=== PATIENT | female | born 1960 | race Two or more races ===

== ENCOUNTER 2020-04-17 14:49 | Outpatient (REF) | payer MEDICAID, SELFPAY | END 2020-04-17 14:50 | disposition home or self-care (01) | LOC: HO.LAB 14:49 | PROVIDERS: Visit Provider Internal Medicine | DX: Z20.828 Contact with and (suspected) exposure to other viral communicable diseases (principal) | CPT/HCPCS: 87635 ==

== ENCOUNTER 2020-09-27 12:35 | Outpatient (REF) | payer MEDICAID, SELFPAY ==
[2020-09-27 14:18] LABS: SARS COV2 PCR INHOUSE POSITIVE (Negative)
== END 2020-09-27 12:36 | disposition home or self-care (01) ==
LOC: HO.LAB 12:35
PROVIDERS: Visit Provider Internal Medicine
DX: Z20.822 Contact with and (suspected) exposure to COVID-19 (principal)
CPT/HCPCS: C9803; U0003

== ENCOUNTER 2020-10-16 12:07 | Outpatient (REF) | payer MEDICAID, SELFPAY | END 2020-10-16 12:08 | disposition home or self-care (01) | LOC: HO.LAB 12:07 | PROVIDERS: Visit Provider Internal Medicine | DX: Z20.822 Contact with and (suspected) exposure to COVID-19 (principal) | CPT/HCPCS: C9803; U0003; U0005 ==

== ENCOUNTER 2020-11-03 10:07 | Outpatient (REF) | payer MEDICAID, SELFPAY ==
[2020-11-03 11:03] LABS: Anion Gap 9 (12-20); Blood Urea Nitrogen 12 mg/dL (9-16); Calcium 9.2 mg/dL (8.4-10.2); Carbon Dioxide 31 mmol/L (22-29); Chloride 109 mmol/L (96-108); Estimated Glomerular Filt Rate > 60; Potassium 3.6 mmol/L (3.3-5.1); Sodium 145 mmol/L (135-145)
[2020-11-03 11:27] LABS: Glucose Urine UA NEG (NEG); Leukocyte Esterase Urine NEG (NEG); Nitrite Urine NEG (NEG); PH 7.5 (5.0-8.0); Urine Blood NEG (NEG); Urine Ketones NEG (NEG); Urine Protein NEG (NEG-TRACE)
[2020-11-03 11:30] LABS: Appearance Urine CLOUDY; Color Urine YELLOW
[2020-11-03 12:00] LABS: Urine Cytology See Pathology rpt
== END 2020-11-03 10:08 | disposition home or self-care (01) ==
LOC: HO.LAB 10:07
PROVIDERS: Visit Provider Internal Medicine Hypertension Specialist
DX: N28.1 Cyst of kidney, acquired (principal)
CPT/HCPCS: 36415; 80051; 81003; 82310; 82565; 84520; 88112; 88305

== ENCOUNTER 2021-05-03 14:16 | Outpatient (REF) | payer MEDICAID, SELFPAY ==
[2021-05-04 11:10] LABS: BV Int Neg Control Negative (Negative); BV Int Pos Control Positive (Positive)
== END 2021-05-03 14:17 | disposition home or self-care (01) ==
LOC: HO.LAB 14:16
PROVIDERS: Visit Provider Advanced Practice Midwife
DX: Z01.419 Encounter for gynecological examination (general) (routine) without abnormal findings (principal); Z11.3 Encounter for screening for infections with a predominantly sexual mode of transmission
CPT/HCPCS: 87480; 87510; 87660

== ENCOUNTER 2021-05-16 09:49 | Outpatient (REF) | payer MEDICAID, SELFPAY ==
--- NOTE | ~2021-05-16 | XR_ITS ---
EXAMINATION: XR FOOT, LEFT CLINICAL INFORMATION: Left foot injury COMPARISON: None TECHNIQUE: AP, lateral, and oblique views of the left foot. FINDINGS: The bones and soft tissues are normal. No fracture. Alignment is anatomic. Joint spaces are maintained. XR/XR foot LT min 3V IMPRESSION: Normal left foot.
== END 2021-05-16 09:50 | disposition home or self-care (01) ==
LOC: HO.XRAY 09:49
PROVIDERS: Absent Provider Nurse Practitioner Family; PCP Nurse Practitioner Family; Visit Provider Nurse Practitioner Primary Care
DX: M79.672 Pain in left foot (principal)
CPT/HCPCS: 73630

== ENCOUNTER 2021-06-01 13:58 | Outpatient (REF) | payer MEDICAID, SELFPAY ==
--- NOTE | ~2021-06-01 | MM_ITS ---
EXAMINATION: MM SCREENING DIGITAL BREAST TOMOSYNTHESIS, BILATERAL CLINICAL INFORMATION: Screening. Asymptomatic. The lifetime risk of breast cancer based on the Tyrer-Cuzick Model is 5%. COMPARISON: Mammography: 03/14/2020, 03/11/2019, 04/20/2018, diagnostic mammography 01/16/2015 TECHNIQUE: Digital breast tomosynthesis is performed in both the craniocaudal and mediolateral oblique views along with computer-aided detection (CAD). Synthesized 2D images are generated from the tomosynthesis. Additional left MLO view is provided. FINDINGS: There are scattered areas of fibroglandular density (ACR BI-RADS breast composition Category b). Parenchymal pattern is similar to prior studies. No developing density or architectural abnormality. There is chronic bilateral nipple retraction again seen. The skin contours are otherwise unremarkable. There are fine calcifications central 12:00 right breast mid depth questionably increased on the 2-D synthesized images versus superimposed pseudo calcifications from digital processing artifact. Patient will be recalled for additional imaging. MM/MM tomosynthesis screening BI IMPRESSION: 1. Right: Question of increased calcifications versus similar calcifications central right breast mid depth. 2. Left: No mammographic evidence of malignancy. ASSESSMENT: BI-RADS 0: Incomplete - Need Additional Imaging Evaluation RECOMMENDATION: 1. Additional views of the right breast (magnification CC, magnification ML). 2. Radiology department staff will contact the patient for additional imaging. This patient's information was entered into a reminder system with a target due date for their next mammogram.
== END 2021-06-01 13:59 | disposition home or self-care (01) ==
LOC: HO.MAMMO 13:58
PROVIDERS: PCP Nurse Practitioner Family; Visit Provider Advanced Practice Midwife
DX: Z12.31 Encounter for screening mammogram for malignant neoplasm of breast (principal)
CPT/HCPCS: 77063; 77067

== ENCOUNTER 2021-06-06 10:48 | Outpatient (REF) | payer MEDICAID, SELFPAY ==
--- NOTE | ~2021-06-06 | MM_ITS ---
EXAMINATION: MM DIAGNOSTIC DIGITAL MAMMOGRAPHY, RIGHT CLINICAL INFORMATION: Recall from screening for questionably increased calcifications central 12:00 right breast. COMPARISON: Mammography: 06/01/2021 and prior exams including magnification views right breast from 01/16/2015. TECHNIQUE: Digital mammography is performed in the following views: Magnification CC and magnification ML. FINDINGS: There are scattered areas of fibroglandular density (ACR BI-RADS breast composition Category b). The additional views show loosely grouped round calcifications in the area of interest. There were calcifications in this area in 2015. They are better visualized on the current exam and a few are slightly coarser. There is no substantial change. Recommend diagnostic right mammogram in 6 months. Results are discussed with the patient at time of visit, using an paster supervisor. MM/MM added views RT IMPRESSION: Probably benign calcifications central upper breast, likely without substantial change from 2015. ASSESSMENT: BI-RADS 3: Probably Benign RECOMMENDATION: Diagnostic right mammography in 6 months. This patient's information was entered into a reminder system with a target due date for their next mammogram.
== END 2021-06-06 10:49 | disposition home or self-care (01) ==
LOC: HO.MAMMO 10:48
PROVIDERS: Visit Provider Advanced Practice Midwife
DX: R92.1 Mammographic calcification found on diagnostic imaging of breast (principal)
CPT/HCPCS: 77065

== ENCOUNTER 2021-11-28 08:50 | Outpatient (REF) | payer MEDICAID, SELFPAY ==
--- NOTE | 2021-11-28 17:31 | MHC.AU.ANR ---
Adult Audiological Evaluation Date of Visit: 11/28/21 Pin Inserter Regulator Used: [place]an- By Phone Reason for Appointment: Audiological evaluation due to concern for decreased hearing and dizziness. Patient reports that she's noticed a decrease in her hearing in both ear over the past three months, and feels her right ear is worse than the left. She also reports 2-3 episodes of dizziness over the past two months. She notes that for the first episode, she woke up and was laying in bed and everything was spinning. She notes this first episode lasted about five minutes. Another episode came on when she was turning her head which bending to get something out of the fridge. She noted this episode was brief and not as severe as the first. She denies any changes to her hearing or tinnitus during the episodes of dizziness. Does patient feel they have a hearing loss?: Yes If Yes, Which Ear?: Both Ears When Was Hearing Difficulty First Noticed?: ~3 months ago Has hearing been tested previously?: No Hearing Handicap Inventory: HHIE SCORE: 4 Based on HHIE score, patient has: No perceived hearing handicap Medical History: Medical History: Dizziness or Unsteadiness Medical History (Other): Per PCP report: Chronic fatigue, fibromyalgia, depression, vitamin B12 deficiency, sciatica, COPD, renal cyst, ileocolitis, hypothyroidism, bilateral cataracts, GERD Allergies: NKA Medication List: triamcinolone acetonide, vitamin D3, levothyroxine sodium, acetaminophen, naproxen, Advair Diskus, albuteral sulfate, Proair HFA, Singulair, Claritin, omeprazole, meclizine HCl Otoscopy: Right Ear: Unremarkable Left Ear: Unremarkable Tympanometry: Tympanometry performed due to: To assess integrity of the middle ear system Right Ear: Normal Middle Ear System (Type A) Left Ear: Normal Middle Ear System (Type A) Hearing Evaluation: Transducer(s) Used: Insert Earphones, Bone Conduction Method: Conventional Audiometry Stimuli Used: Pure Tones Right Ear: Description of Hearing: Normal hearing from 250-1000 Hz, sloping to a mild sensorineural hearing loss at 2000 Hz, and rising to normal hearing from 6385-9134 Hz. Left Ear: Description of Hearing: Normal hearing from 250-1000 Hz, sloping to a mild sensorineural hearing loss at 2000 Hz, then rising to normal hearing at 4000, and sloping to a mild hearing loss at 8000 Hz. Speech Recognition Threshold (SRT): Method Used: Recorded Lists Stimuli Used: [place] Trisyllable Words Right Ear: 35 dBHL Left Ear: 35 dBHL Word Discrimination: Method: Recorded Lists Word Lists Used: Lista Bisil?bica (S[place]ankan) Right Ear: 92% at 65 dBHL Left Ear: 96% at 65 dBHL Interpretation of Results: Mild hearing loss at 2000 Hz in the right ear and 2000 and 8000 Hz in the left ear. This hearing loss is not likely to cause any significant communication difficulties at this time. Recommendations: Audiological re-evaluation in one year. Amplification is not warranted at this time. Advised patient that if dizziness/vertigo continues, she may consider following up with Ear, Nose, and Throat. Diagnosis: Primary Diagnosis: H90.3 Bilateral Sensorineural Hearing Loss Services Performed: Services Performed: Comprehensive Audiological Evaluation (CPT 30916) Tympanometry (CPT 61091) Signature: Provider: Candis Egan, CCC-A
== END 2021-11-28 08:51 | disposition home or self-care (01) ==
LOC: HO.SH 08:50
PROVIDERS: Visit Provider Nurse Practitioner Family
DX: Z01.118 Encounter for examination of ears and hearing with other abnormal findings (principal); H90.3 Sensorineural hearing loss, bilateral
CPT/HCPCS: 92557; 92567

== ENCOUNTER 2021-12-06 12:27 | Outpatient (REF) | payer MEDICAID, SELFPAY ==
--- NOTE | ~2021-12-06 | MM_ITS ---
EXAMINATION: MM DIAGNOSTIC DIGITAL BREAST TOMOSYNTHESIS, RIGHT CLINICAL INFORMATION: Short interval six-month follow-up probable benign calcifications mid central right breast just superior to posterior nipple line. The lifetime risk of breast cancer based on the Tyrer-Cuzick Model is 5%. COMPARISON: Mammography: 06/06/2021, 06/01/2021 (BI-RADS 0), 03/14/2020, 06/10/2019, magnification views right breast 01/16/2015. TECHNIQUE: Digital breast tomosynthesis is performed in both the craniocaudal and mediolateral oblique views along with computer-aided detection (CAD). Synthesized 2D images are generated from the tomosynthesis. Additional magnification right CC and magnification right ML views are obtained. FINDINGS: There are scattered areas of fibroglandular density (ACR BI-RADS breast composition Category b). There is inhomogeneous parenchymal pattern with scattered stable fibroglandular asymmetries similar to prior studies. No developing density or interval mass or architectural abnormality. Calcifications for follow-up mid central 12:00 position are stable from the most recent prior diagnostic exam. They are better visualized on the current mammography than on more remote magnification views. The calcifications are uniform round. They will be reassessed again at time of annual bilateral diagnostic mammography, due in 6 months. Results are provided to the patient at time of visit by the technologist. MM/MM tomosynthesis diagnostic RT IMPRESSION: Probable benign calcifications central 12:00 right breast similar to prior diagnostic exam. ASSESSMENT: BI-RADS 3: Probably Benign RECOMMENDATION: Bilateral diagnostic mammography to include magnification views right breast, due in 6 months. This patient's information was entered into a reminder system with a target due date for their next mammogram.
== END 2021-12-06 12:28 | disposition home or self-care (01) ==
LOC: HO.MAMMO 12:27
PROVIDERS: Visit Provider Nurse Practitioner Family
DX: R92.1 Mammographic calcification found on diagnostic imaging of breast (principal)
CPT/HCPCS: 77061; 77065

== ENCOUNTER 2022-06-11 14:06 | Outpatient (REF) | payer MEDICAID, SELFPAY ==
--- NOTE | ~2022-06-11 | MM_ITS ---
EXAMINATION: MM DIAGNOSTIC DIGITAL BREAST TOMOSYNTHESIS, BILATERAL CLINICAL INFORMATION: Due for yearly. Also follow-up probable benign calcifications central mid right breast just superior to posterior nipple line. TC score 5%. COMPARISON: Mammography: 12/06/2021, 06/06/2021, 06/01/2021 (BI-RADS 0), 03/14/2020, 03/11/2019, 04/20/2018, 04/08/2017 TECHNIQUE: Digital breast tomosynthesis is performed in both the craniocaudal and mediolateral oblique views along with computer-aided detection (CAD). Synthesized 2D images are generated from the tomosynthesis. Additional magnification right CC and magnification right ML views are obtained. FINDINGS: There are scattered areas of fibroglandular density (ACR BI-RADS breast composition Category b). Parenchymal pattern is similar to prior exams and there is no developing density or interval architectural abnormality. There are some benign grouped calcifications central left breast on MLO view corresponding to dermal calcifications on the CC projection. The bilateral axilla are unremarkable. There is chronic bilateral nipple retraction similar to prior studies. The right breast calcifications for follow-up are similar to prior diagnostic exams. There are punctate similar appearing calcifications more remote mammography. No significant changes. Right breast calcifications will be reassessed again in 12 months at time of annual bilateral mammography to conclude long-term surveillance. Results are provided to the patient at time of visit by the technologist. MM/MM tomosynthesis diagnostic BI IMPRESSION: -Probable benign calcifications for follow-up right breast, stable. -No mammographic evidence of malignancy. ASSESSMENT: BI-RADS 3: Probably Benign RECOMMENDATION: Diagnostic mammography at time of next annual exam, due in 12 months. This patient's information was entered into a reminder system with a target due date for their next mammogram.
== END 2022-06-11 14:07 | disposition home or self-care (01) ==
LOC: HO.MAMMO 14:06
PROVIDERS: PCP Nurse Practitioner Family; Visit Provider Registered Nurse
DX: R92.1 Mammographic calcification found on diagnostic imaging of breast (principal)
CPT/HCPCS: 77062; 77066

== ENCOUNTER 2022-07-10 13:05 | Outpatient (REF) | payer MEDICAID, SELFPAY ==
[2022-07-11 13:49] LABS: BV Int Neg Control Negative (Negative); BV Int Pos Control Positive (Positive)
== END 2022-07-10 13:06 | disposition home or self-care (01) ==
LOC: HO.LAB 13:05
PROVIDERS: PCP Registered Nurse; Visit Provider Advanced Practice Midwife
DX: Z01.419 Encounter for gynecological examination (general) (routine) without abnormal findings (principal); L29.2 Pruritus vulvae
CPT/HCPCS: 87480; 87510; 87660

== ENCOUNTER 2022-09-19 08:09 | Outpatient (REF) | payer MEDICAID, SELFPAY ==
--- NOTE | ~2022-09-19 | US_ITS ---
EXAMINATION: US ABDOMEN COMPLETE CLINICAL INFORMATION: Right upper quadrant pain, Crohn's disease. COMPARISON: CT chest and abdomen with contrast 11/30/2020. Ultrasound abdomen complete 02/02/2018. TECHNIQUE: Real-time imaging of the abdominal viscera. FINDINGS: PANCREAS: The pancreas appears unremarkable, without masses or ductal dilatation, with the exception of the tail which is obscured by bowel gas. ABDOMINAL AORTA: The proximal, mid, and distal segments are normal in caliber. INFERIOR VENA CAVA: Visualized portions are normal. LIVER: The liver is normal in size. The liver contour is normal. There is diffuse increased liver parenchymal echogenicity, consistent with hepatic steatosis. No focal hepatic lesion. There is no intrahepatic biliary duct dilatation seen. GALLBLADDER: Surgically absent. COMMON BILE DUCT: Normal in caliber measuring 0.8 cm in diameter. RIGHT KIDNEY: There is mild cortical thinning. No hydronephrosis or renal calculi. The kidney measures 11.6 cm in maximum dimension. Small 1 cm benign simple cyst is present. No additional imaging or followup is needed. LEFT KIDNEY: There is mild cortical thinning. No hydronephrosis or renal calculi. The kidney measures 12.8 cm in maximum dimension. A lower pole benign Bosniak class II renal cyst is seen with a single thin septation measuring 4.9 x 4.8 x 6.0 cm. No additional imaging or followup is needed. SPLEEN: Normal. The spleen measures 9.4 cm in maximum dimension. FREE FLUID: None. US/US abdomen complete IMPRESSION: 1. Hepatic steatosis. 2. Mild renal cortical thinning.
== END 2022-09-19 08:10 | disposition home or self-care (01) ==
LOC: HO.US 08:09
PROVIDERS: PCP Registered Nurse; Visit Provider Registered Nurse
DX: R10.11 Right upper quadrant pain (principal)
CPT/HCPCS: 76700

== ENCOUNTER 2023-02-28 15:00 | Outpatient (RCR) | payer MEDICAID, SELFPAY | END 2023-03-03 10:27 | disposition home or self-care (01) | LOC: HO.PT 15:00 | PROVIDERS: PCP Registered Nurse; Visit Provider Registered Nurse | DX: M54.42 Lumbago with sciatica, left side (principal); M54.41 Lumbago with sciatica, right side; G89.29 Other chronic pain | CPT/HCPCS: 97110; 97162 ==

== ENCOUNTER 2023-06-13 13:44 | Outpatient (REF) | payer MEDICAID, SELFPAY ==
--- NOTE | ~2023-06-13 | MM_ITS ---
EXAMINATION: MM DIAGNOSTIC DIGITAL BREAST TOMOSYNTHESIS, BILATERAL CLINICAL INFORMATION: Follow-up right breast calcifications, two-year follow-up date. Due for yearly. COMPARISON: Mammography: 06/11/2022, 12/06/2021, 06/06/2021, 06/01/2021. TECHNIQUE: Digital breast tomosynthesis is performed in both the craniocaudal and mediolateral oblique views along with computer-aided detection (CAD). Synthesized 2D images are generated from the tomosynthesis. In addition to standard views, spot magnification right CC and ML views were also obtained. FINDINGS: There are scattered areas of fibroglandular density (ACR BI-RADS breast composition Category b). Punctate round loosely grouped calcifications in the 12:00 axis of the anterior right breast are stable from prior exams dating back to 06/01/2021, establishing a two-year stability and thus are benign. No further follow-up recommended. There are otherwise no suspicious masses, suspicious grouped calcifications, or areas of architectural distortion in either breast. The parenchymal pattern is stable from prior exams. MM/MM tomosynthesis diagnostic BI IMPRESSION: There are no findings suspicious for malignancy in either breast. Calcifications in the 12:00 axis of the anterior right breast are stable over 2 years, and benign. No further follow-up required. ASSESSMENT: BI-RADS BI-RADS 2 - Benign Findings RECOMMENDATION: 1 year F/U Results were provided to the patient at time of visit by the technologist. This patient's information was entered into a reminder system with a target due date for their next mammogram.
== END 2023-06-13 13:45 | disposition home or self-care (01) ==
LOC: HO.MAMMO 13:44
PROVIDERS: PCP Registered Nurse; Visit Provider Registered Nurse
DX: R92.1 Mammographic calcification found on diagnostic imaging of breast (principal)
CPT/HCPCS: 77062; 77066

== ENCOUNTER → 2023-06-13 14:00 | Outpatient (BNV) | payer MEDICARE, MEDICAID, SELFPAY | PROVIDERS: PCP Registered Nurse; Visit Provider Radiology Diagnostic Radiology | DX: R92.1 Mammographic calcification found on diagnostic imaging of breast (principal) | CPT/HCPCS: 77062; 77066; G0279 ==

== ENCOUNTER 2023-07-16 14:36 | Outpatient (REF) | payer MEDICARE, MEDICAID, SELFPAY ==
[2023-07-17 13:43] LABS: BV Int Neg Control Negative (Negative); BV Int Pos Control Positive (Positive)
[2023-07-19 06:43] LABS: HPV mRNA E6/E7 rflx Not Detected (Not Detected)
== END 2023-07-16 14:37 | disposition home or self-care (01) ==
LOC: HO.LNP 14:36
PROVIDERS: PCP Registered Nurse; Visit Provider Advanced Practice Midwife
DX: Z01.419 Encounter for gynecological examination (general) (routine) without abnormal findings (principal); N64.4 Mastodynia; L29.2 Pruritus vulvae; T14.8XXA Other injury of unspecified body region, initial encounter; X58.XXXA Exposure to other specified factors, initial encounter; Y93.9 Activity, unspecified; Y92.9 Unspecified place or not applicable; Y99.9 Unspecified external cause status
CPT/HCPCS: 87480; 87510; 87624; 87660; 88142

== ENCOUNTER 2023-07-16 14:36 | Outpatient (AMB) | payer MEDICARE, MEDICAID, SELFPAY ==
--- NOTE | 2023-07-16 14:38 | A.OFFVIS_ITS ---
Intake Vital Signs 07/16/23 14:40 Height 4 ft 9 in Weight 150 lb BMI 32.5 BP 136/70 Intake Visit Reasons: Annual Intake Note: c/o of vaginal itching Assistant Professor Surgical Technology Required: Yes Assistant Professor Surgical Technology Language: Legal Services Manager Name: Fransisca TATE Information Interpreted: non-clinical & clinical Pyrotechnician: Pyrotechnician Present (Fransisca Sheets RMA) Accompanied by: Self / Same As Patient Allergies tramadol [TRAMADOL] Allergy (Unknown, Verified 07/16/23 14:49) NAUSEA & VOMITING, nausea and vomiting codeine [CODEINE] Adverse Reaction (Severe, Verified 07/16/23 14:49) NAUSEA & VOMITING Codeine Sulfate Allergy (Unknown, Uncoded 07/16/23 14:49) stomach upset Post menopausal: Yes HPI HPI Comments History of Present Illness Details She is a 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 She is doing well with concerns: left breast pain x 2wks after her mammogram during the procedure. Also reports external itching, occasional odor. Attempting to eat a healthy diet with calcium products, no regular exercise. Currently not sexually active. STI testing offered; she declines. Last pap smear; 2018. Last mammogram; 2022. Colonoscopy is not UTD. Denies any family history of breast, ovarian or colon cancer. PFSH Medical History Asthma Depression Anxiety Fibromyalgia Hypothyroidism Surgical History Hx of cholecystectomy Hx of tubal ligation Family History Mother Asthma Brother HTN (hypertension) Son HTN (hypertension) Social History Household Members: Spouse Housing: Apartment Alcohol intake: never Patient Tobacco Use Status: Never used Tobacco Current occupational status: unemployed Sexual orientation: Straight/Heterosexual Gender identity: Female Female Reproductive History Menstrual control method: permanent sterilization Permanent Sterilization: BTL Menopause type: natural Total pregnancies: 8 Full term: 6 Number of Living Children: 6 (1 stillbirth) Ab spontaneous: 1 Date of last pap smear: 10/08/18 (neg pap and hpv) Date of Mammogram: 06/13/23 (Birad 2) Review of Systems Const All systems reviewed & are unremarkable except as noted in HPI and below Reports as per HPI Eyes Reports no additional complaints ENT Reports no additional complaints Card Reports no additional complaints Resp Reports no additional complaints GI Reports as per HPI and Reports no additional complaints Reports as per HPI Musc Reports no additional complaints Skin/Breast Reports as per HPI Neuro Reports no additional complaints Psych Reports no additional complaints Endo Reports no additional complaints Yaniv/Lymph Reports no additional complaints Aller/Immun Reports no additional complaints Physical Exam Vital Signs: Last Vital Signs BP 136/70 07/16/23 14:40 BMI result Body Mass Index 32.5 Const General: cooperative, healthy appearing, no acute distress, well developed and alert Orientation/consciousness: patient oriented x3 HEENT Head: Yes normal to inspection Eyes General: appearance normal, both eyes and all related structures Neck Neck: Yes normal visual inspection Thyroid: Thyroid normal Chest Other: Bilateral inverted nipple no nipple discharge Chest palpation & inspection: normal inspection of the chest and other (no puckering, dimpling, peau de orange, retraction, discharge, masses) Breast/axilla inspection: normal inspection of the breasts Breast/axilla palpation: normal palpation of the breasts Resp Effort & Inspection: normal respiratory effort GI Inspection: Yes normal to inspection Palpation (GI): Soft to palpation Rectal Exam - Female: deferred Other: Upper left labia small excoriated scabbed lesion General: Yes bladder normal to palpation External Female Exam: normal external appearance and normal appearance of the urethra Speculum Exam - Vagina: normal appearance of the vagina, normal palpation, normal vaginal discharge and vagina atrophic Speculum Exam - Cervix: normal appearance of the cervix, normal palpation and Other cervical findings present (Blood with Pap) Bimanual exam- vagina & uterus: normal bimanual exam, normal palpation, uterine size normal, bladder normal to palpation, normal palpation and non-tender Bimanual Exam- Adnexa, other: no masses Skin General skin exam: no rashes or lesions noted Rashes: no rashes Neuro General: patient oriented x3 Cognition (Neuro): normal cognition Extrem General: Yes normal to inspection Psych Attitude: cooperative Thought process: Normal thought process present Assessment & Plan Assessment & Plan (1) Encounter for well woman exam with routine gynecological exam: Code(s): Z01.419 - Encounter for gynecological examination (general) (routine) without abnormal findings (2) Vulvar itching: Code(s): L29.2 - Pruritus vulvae (3) Skin excoriation: Code(s): T14.8XXA - Other injury of unspecified body region, initial encounter (4) Breast pain, left: Code(s): N64.4 - Mastodynia Plan Discussed: Current recommendations for pap smears per ASCCP guidelines. Breast awareness, periodic self breast exams and yearly mammogram. Maintain a healthy lifestyle, well balanced diet including Calcium 1,200 mg and Vitamin D 600 IU daily, and routine exercise. Plan left breast ultrasound follow-up pending results. Rx for vulvar itching, medication use reviewed. Avoid scratching the area, if irritated 10 use a cool compress to help soothe the itch. Follow-up in 2 weeks to recheck if unresolved will do a skin biopsy at that visit. Contact the office with any postmenopausal bleeding. All of her questions and concerns were addressed to the best of my ability and shared decision making. She is agreeable to the plan of care. RTO in 1 year for annual marketing strategy lead exam. This note is constructed using voice recognition software. While every effort has been made to ensure accuracy, printed circuit board assembler errors may have been included. Orders: Orders US breast LT complete Today N64.4 - Mastodynia Medications: New betamethasone dipropionate 0.05% use BID for one week, then daily at bedtime x one, then every other day. 1 appl topical BID 15 grams 0RF Coding Level of Care Code Est Pt Prev Care >65y(97678) Diagnoses Encounter for well woman exam with routine gynecological exam Z01.419 Vulvar itching L29.2 Skin excoriation T14.8XXA Breast pain, left N64.4
[2023-07-16 14:40] VITALS: BP 136/70; BMI 32.5
== END 2023-07-16 15:27 | disposition home or self-care (01) ==
LOC: HO.HWS 14:36
PROVIDERS: PCP Registered Nurse; Visit Provider Advanced Practice Midwife
DX: Z01.419 Encounter for gynecological examination (general) (routine) without abnormal findings (principal); L29.2 Pruritus vulvae; T14.8XXA Other injury of unspecified body region, initial encounter; N64.4 Mastodynia
CPT/HCPCS: G0101

== ENCOUNTER → 2023-07-24 13:00 | Outpatient (BNV) | payer MEDICARE, MEDICAID, SELFPAY | PROVIDERS: PCP Registered Nurse; Visit Provider Radiology Diagnostic Radiology | DX: N64.4 Mastodynia (principal) | CPT/HCPCS: 76642 ==

== ENCOUNTER 2023-07-24 13:27 | Outpatient (REF) | payer MEDICARE, MEDICAID, SELFPAY ==
--- NOTE | ~2023-07-24 | US_ITS ---
EXAMINATION: US DIAGNOSTIC ULTRASOUND BREAST, BILATERAL CLINICAL INFORMATION: Bilateral retroareolar pain. Known bilateral long-term nipple inversion. Negative bilateral mammography 06/13/2023. COMPARISON: Bilateral breast ultrasound 03/14/2020. Otherwise, no contributing prior ultrasounds. TECHNIQUE: Ultrasound of the breast is performed with real-time bailey scale imaging and color Doppler. FINDINGS: Bilateral retroareolar regions demonstrate there are is no focal suspicious finding. There is no solid mass, architectural abnormality, or edema in the soft tissue planes. There is bilateral mild duct ectasia without evidence of filling defects present. Known bilateral mild nipple retraction is again seen. This is long-standing. Results are discussed with the patient at time of visit. US/US breast BI limited mamm only IMPRESSION: No findings suspicious for malignancy in either breast retroareolar region. No sonographic correlate to the regions of breast retroareolar pain. Again noted is mild bilateral duct ectasia in the retroareolar regions without filling defects. Chronic mild nipple retraction is also noted, unchanged. ASSESSMENT: BI-RADS BI-RADS 2 RECOMMENDATION: 1. Patient should be managed based on the clinical impression. 2. Otherwise, the patient should return to routine annual screening mammography.
== END 2023-07-24 13:28 | disposition home or self-care (01) ==
LOC: HO.MAMMO 13:27
PROVIDERS: PCP Registered Nurse; Visit Provider Advanced Practice Midwife
DX: N64.4 Mastodynia (principal)
CPT/HCPCS: 76642

== ENCOUNTER 2023-08-06 13:54 | Outpatient (AMB) | payer MEDICAID, SELFPAY ==
--- NOTE | 2023-08-06 13:57 | A.OFFVIS_ITS ---
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 Patient reports that her finger used to lock. She states that it was locking about a month ago, yet she is feeling better today. Patient just wants to make sure everything is alright. 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 The patient was referred to the office after being diagnosed with right middle finger trigger finger. While in the office today the patient states her right middle finger was locking about a month ago. She states she has been doing better today. She would like to be evaluated to make sure there is nothing significantly wrong with the digit. Patient has a history of left middle finger trigger finger release in [place] in 2019. [facility] Medical History Asthma Depression Anxiety Fibromyalgia Hypothyroidism Surgical History Hx of cholecystectomy Hx of tubal ligation Family History Mother Asthma Brother HTN (hypertension) Son HTN (hypertension) Social History Household Members: Spouse Housing: Apartment Alcohol intake: never Patient Tobacco Use Status: Never used Tobacco Current occupational status: unemployed Sexual orientation: Straight/Heterosexual Gender identity: Female Review of Systems Const All systems reviewed & are unremarkable except as noted in HPI and below Physical Exam Const General: cooperative, healthy appearing and no acute distress Resp Effort & Inspection: normal respiratory effort and able to speak in complete sentences Cardio Rate: regular rate Peripheral pulses: Peripheral pulses 2+ throughout GI Palpation (GI): Soft to palpation Skin Lesions: no lesions Rashes: no rashes Extrem Other: Right hand: Normal to inspection. No ecchymosis, erythema, or edema. Able to perform full finger flexion, extension, abduction, adduction, finger cross, okay sign, and thumbs up without deficit. Able to make a closed fist. Sensation intact. Capillary refill is brisk. Radial pulse intact. Patient complains of right middle trigger finger, however, there is no active locking or catching while in the office today. Assessment & Plan Assessment & Plan (1) Trigger finger, right middle finger: Code(s): M65.331 - Trigger finger, right middle finger Plan Ms. Wilks is a 63-year-old right hand dominant female, who is [place] speaking, presents in the office today for an evaluation of right hand pain. The patient was referred to the office after being diagnosed with right middle finger trigger finger. While in the office today the patient states her right middle finger was locking about a month ago. She states she has been doing better today. She would like to be evaluated to make sure there is nothing significantly wrong with the digit. Patient has a history of left middle finger trigger finger release in [place] in 2019. The patient will follow up as symptoms dictate if her symptoms return. At this time there is no catching or locking and her symptoms have resolved. She is not experiencing any pain at this time. Follow up will be PRN, or sooner if needed. Patient Instructions: Scribed by Nelly Troy emergency medical technician, for Martha Dumas PA-C on 08/06/2023 at 2:15 pm, EST. Coding Level of Care Code New Pt Level 3 (68955) Diagnoses Trigger finger, right middle finger M65.331
== END 2023-08-06 14:19 | disposition home or self-care (01) ==
PROVIDERS: PCP Registered Nurse; Visit Provider Physician Assistant
DX: M65.331 Trigger finger, right middle finger (principal)
CPT/HCPCS: 99203

== ENCOUNTER → 2023-08-06 13:54 | Outpatient (BNVA) | payer MEDICARE, MEDICAID, SELFPAY | PROVIDERS: PCP Registered Nurse; Visit Provider Physician Assistant | DX: M65.331 Trigger finger, right middle finger (principal) | CPT/HCPCS: 99212 ==

== ENCOUNTER → 2023-08-22 11:35 | Outpatient (BNVA) | payer MEDICAID, SELFPAY | PROVIDERS: PCP Registered Nurse; Visit Provider Advanced Practice Midwife ==

== ENCOUNTER 2023-10-03 11:26 | Outpatient (AMB) | payer OTHER, SELFPAY ==
--- NOTE | 2023-10-03 11:28 | MHC.OFFVIS ---
Intake Vital Signs 10/03/23 11:29 Height 4 ft 9 in Weight 149 lb 14.629 oz BMI 32.4 BP 114/62 Intake Visit Reasons: Breast ultra sound follow up Drug Safety Data Management Specialist Required: Yes Drug Safety Data Management Specialist Language: Media Monitor Name: Fransisca TATE Information Interpreted: non-clinical & clinical House Cleaner Supervisor: House Cleaner Supervisor Present Accompanied by: Self / Same As Patient Allergies tramadol [TRAMADOL] Allergy (Unknown, Verified 10/03/23 11:34) NAUSEA & VOMITING, nausea and vomiting codeine [CODEINE] Adverse Reaction (Severe, Verified 10/03/23 11:34) NAUSEA & VOMITING Codeine Sulfate Allergy (Unknown, Uncoded 10/03/23 11:34) stomach upset Is last menstrual period known: Yes Post menopausal: Yes HPI HPI Comments History of Present Illness Details Patient is here today for a follow up of breast ultrasounds due to bilateral breast discomfort that is intermittent and not progress of. She reports wearing a supportive bra, there is no history of breast trauma. No abnormal nipple discharge or nipple bleeding. PFSH Medical History Asthma Depression Anxiety Fibromyalgia Hypothyroidism Surgical History Hx of cholecystectomy Hx of tubal ligation Family History Mother Asthma Brother HTN (hypertension) Son HTN (hypertension) Social History Household Members: Spouse Housing: Apartment Alcohol intake: never Patient Tobacco Use Status: Never used Tobacco Current occupational status: unemployed Sexual orientation: Straight/Heterosexual Gender identity: Female Review of Systems Const All systems reviewed & are unremarkable except as noted in HPI and below Endo Reports no additional complaints Physical Exam Vital Signs: Last Vital Signs BP 114/62 10/03/23 11:29 BMI result Body Mass Index 32.4 Const General: cooperative, healthy appearing and no acute distress Chest Other: Patient defers breast exam today. Psych Appearance: well kempt Attitude: cooperative Thought process: Normal thought process present Assessment & Plan Assessment & Plan (1) Encounter to discuss test results: Code(s): Z71.2 - Person consulting for explanation of examination or test findings (2) Mastalgia: Code(s): N64.4 - Mastodynia Plan Discussed: Breast ultrasound findings report mild bilateral breast ectasia. Internet web pictures utilized to review anatomical structure of the breast and description of ductal changes. Encouraged her to continue wearing a supportive brassiere, use of mild [id number] analgesics if needed. Advised to report any abnormal nipple discharge or bleeding, or any breast lump or increase in pain. Has annual exam June 2024. All of her questions and concerns were addressed to the best of my ability. This note is constructed using voice recognition software. While every effort has been made to ensure accuracy, silk screen operator errors may have been included. Coding Level of Care Code Est Pt Level 3 (82506) Diagnoses Encounter to discuss test results Z71.2 Mastalgia N64.4
[2023-10-03 11:29] VITALS: BP 114/62; BMI 32.4
== END 2023-10-03 11:45 | disposition home or self-care (01) ==
PROVIDERS: PCP Internal Medicine; Visit Provider Advanced Practice Midwife
DX: Z71.2 Person consulting for explanation of examination or test findings (principal); N64.4 Mastodynia
CPT/HCPCS: 99213

== ENCOUNTER → 2023-10-03 11:26 | Outpatient (BNVA) | payer OTHER, SELFPAY | PROVIDERS: PCP Internal Medicine; Visit Provider Advanced Practice Midwife | DX: Z71.2 Person consulting for explanation of examination or test findings (principal); N64.4 Mastodynia | CPT/HCPCS: 99212 ==

== ENCOUNTER 2023-10-21 15:12 | Emergency (ER) | payer OTHER, SELFPAY ==
--- NOTE | ~2023-10-21 | XR_ITS ---
EXAMINATION: XR CHEST CLINICAL INFORMATION: Cough. COMPARISON: Chest radiograph dated 2018. TECHNIQUE: Frontal view of the chest was obtained. FINDINGS: Heart size is normal. The lungs are clear. There is no pleural effusion or pneumothorax. No acute osseous abnormality. XR/XR chest 1V IMPRESSION: No acute cardiopulmonary disease.
[2023-10-21 15:54] VITALS: BP 120/58; PULSE 90; RESP 14; TEMP 36.7; O2SAT 94; BMI 32.7
--- NOTE | 2023-10-21 15:56 | ED_ITS ---
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 Patient also reports bilateral chest wall discomfort and is currently using Robitussin for cough control. Related Data Home Medications ?Medication ?Instructions ?Recorded ?Confirmed albuterol sulfate 90 mcg/actuation 2 puff inhalation Q6H PRN 05/03/21 aerosol inhaler levothyroxine 50 mcg capsule 50 mcg PO DAILY 05/03/21 loratadine 10 mg tablet 10 mg PO DAILY 05/03/21 montelukast 10 mg tablet 10 mg PO DAILY 05/03/21 (Singulair) omeprazole 20 mg capsule,delayed 20 mg PO DAILY 05/03/21 release Previous Rx's ?Medication ?Instructions ?Recorded betamethasone dipropionate 0.05 % 1 appl topical BID #15 grams 07/16/23 topical ointment benzonatate 200 mg capsule 200 mg PO TID PRN cough #14 caps 10/21/23 Allergies Allergy/AdvReac Type Severity Reaction Status Date / Time tramadol [TRAMADOL] Allergy Unknown NAUSEA & Verified 10/21/23 16:00 VOMITING, nausea and vomiting codeine [CODEINE] AdvReac Severe NAUSEA & Verified 10/21/23 16:00 VOMITING Codeine Sulfate Allergy Unknown stomach Uncoded 10/03/23 11:34 upset Review of Systems Review of Systems: Pertinent positives and negatives as stated in HPI PMFSH Past Medical History Source: nursing notes reviewed Medical History Asthma Depression Anxiety Fibromyalgia Hypothyroidism Surgical History Hx of cholecystectomy Hx of tubal ligation Family History Family History Mother Asthma Brother HTN (hypertension) Son HTN (hypertension) Social History Social History Household Members: Spouse Housing: Apartment Alcohol intake: never Patient Tobacco Use Status: Never used Tobacco Smoked in Last 30 Days: No Use of substances other than those prescribed or required for medical reasons: No Advance Directives: No Advance Directives Information Provided: No Do you have a plan to hurt others: No Plan Current occupational status: unemployed Sexual orientation: Straight/Heterosexual Gender identity: Female Physical Exam Vital Signs: Vital Signs: Last Vital Signs Temp 98.1 F 10/21/23 20:52 Pulse 72 10/21/23 20:52 Resp 14 10/21/23 20:52 BP 128/60 10/21/23 20:52 Pulse Ox 96 10/21/23 20:52 O2 Del Method Room Air 10/21/23 20:52 BMI result Body Mass Index 32.7 VITAL SIGNS: Reviewed. GENERAL: Well developed, well nourished, in no acute distress. HEAD: Normocephalic/atraumatic EYES: PERRLA, EOMI EARS: Ext canals without abnormality NOSE: Nares patent bilateral OROPHARYNX: no oral lesions noted, posterior pharynx clear NECK: Supple, no adenopathy LUNGS: Good inspiratory effort, coarse breath sounds, no tachypnea or increased work of breathing SpO2<96> CARDIOVASCULAR: Regular rate and rhythm without noted murmurs, no JVD or lower extremity edema. ABDOMEN: Soft, non-tender, non-distended with bowel sounds. MUSCULOSKELETAL: No tenderness, deformities, or effusions noted on gross inspection. EXTREMITIES: No cyanosis, clubbing or edema. SKIN: Inspection of the skin reveals no rashes NEUROLOGIC: Alert and oriented x 4. Strength and sensation to light touch were grossly intact x 4. Course Course Course Narrative: This is a rapid medical exam completed by Parvez WASSERMANN: Additional HPI, ROS, PE not included below will be deferred to primary provider. Reports cough for the past several weeks, has been treated for bronchitis with two courses of antibiotics with no relief of symptoms. [place] warm the other day but did not take her temperature. Hx of asthma with inhalers. Using them with no relief of symptoms Plan: CXR, nasal swab Medications Administered Discontinued Medications Generic Name Dose Route Start Last Admin Trade Name Freq PRN Reason Stop Dose Admin Benzonatate 200 mg 10/21/23 20:36 10/21/23 20:48 Benzonatate 100 Mg Capsule PO 10/21/23 20:37 200 mg ONCE ONE Administration Medical Decision Making Medical Decision Making [facility] Narrative: 63-year-old female with history and clinical presentation, DDX: Bronchitis, asthma, viral illness, chronic cough Viral testing is negative for COVID-19/influenza A and chest x-ray negative for infiltrate or venous congestion otherwise my interpretation is in agreement with radiology's impression. Provided patient with Tessalon and a prescription for Tessalon Perles to help with cough control which I think will also help to decrease airway irritation, there is no evidence of acute asthma exacerbation, there is no viral illness, patient is oxygenating well on room air and I discussed all results with the patient and also recommended follow-up with primary care doctor and referral to see direct service worker as despite being on multiple inhalers as well as seasonal allergy medication she may need more aggressive asthma control. Differential Diagnosis Differential Diagnoses: The differential diagnosis associated with the presentation includes Please see the discussion above Admission/Observation Consideration of admission/observation: Escalation of care including admission/observation considered Please see the discussion above Lab Data [facility] Lab Attestation statement: I reviewed the patient's lab results. Please see the discussion above Labs: Lab Results 10/21/23 Range/Units 16:18 Influenza Type A (PCR) NEGATIVE (Negative) Influenza Type B (PCR) NEGATIVE (Negative) RSV RNA Qual (PCR) NEGATIVE (Negative) SARS-CoV-2 RNA (RT-PCR) NEGATIVE (Negative) Radiology Impression Discussion of test interpretation with radiology: I have reviewed the radiologist's reading. Radiologist Impression: Please see the discussion above Discharge Plan Discharge Clinical Impression: Cough, persistent, Asthma Patient Disposition: Home, Self-Care Instructions: Asthma (ED), Chronic Cough (ED) Additional Instructions: Follow-up with your primary care doctor. Prescriptions: New benzonatate 200 mg capsule 200 mg PO TID PRN (Reason: cough) Qty: 14 0RF No Action montelukast [Singulair] 10 mg tablet 10 mg PO DAILY levothyroxine 50 mcg capsule 50 mcg PO DAILY albuterol sulfate 90 mcg/actuation HFA aerosol inhaler 2 puff inhalation Q6H PRN loratadine 10 mg tablet 10 mg PO DAILY omeprazole 20 mg capsule,delayed release(DR/EC) 20 mg PO DAILY betamethasone dipropionate 0.05 % ointment 1 appl topical BID Qty: 15 0RF Rx Instructions: use BID for one week, then daily at bedtime x one, then every other day. Interventions: ED Discharge Assessment Last Done: 10/21/23 20:52 Discharge Date/Time: 10/21/23 20:53 Print Language: [place] Citizen
[2023-10-21 17:01] LABS: Influenza A PCR NEGATIVE (Negative); Influenza B PCR NEGATIVE (Negative); Resp Syncy Virus RNA Qual PCR NEGATIVE (Negative); SARS COV2 PCR INHOUSE NEGATIVE (Negative)
[2023-10-21 20:00] VITALS: BP 138/70; PULSE 72; RESP 12; TEMP 36.4; O2SAT 96
[2023-10-21 20:48] VITALS: O2SAT 95
[2023-10-21] MEDS: Benzonatate 100 MG CAPSULE 200 MG PO (20:48)
[2023-10-21 20:51] VITALS: BP 128/60; PULSE 72; RESP 14; TEMP 36.7; O2SAT 96
[2023-10-21 20:52] VITALS: BP 128/60; PULSE 72; RESP 14; TEMP 36.7; O2SAT 96
== END 2023-10-21 20:53 | disposition home or self-care (01) ==
PROVIDERS: Nurse Practitioner Family; Emergency Provider Student in an Organized Health Care Education/Training Program
DX: R05.3 Chronic cough (principal); J45.909 Unspecified asthma, uncomplicated
CPT/HCPCS: 0241U; 71045; 99283; 99284

== ENCOUNTER 2023-11-19 13:31 | Outpatient (AMB) | payer OTHER, SELFPAY ==
[2023-11-19 13:47] VITALS: BP 110/62; PULSE 87; O2SAT 96; BMI 32.2
--- NOTE | 2023-11-19 13:47 | MHC.OFFVIS ---
Vital Signs 11/19/23 13:47 Height 4 ft 9 in Weight 149 lb BMI 32.2 BP 110/62 Blood Pressure Location Lt brachial Position Sitting Pulse 87 Pulse Source Pulse Oximeter Pulse Oximetry (%) 96 Oxygen Delivery Method Room Air Intake Visit Reasons: Bronchitis Intake Note: pt is here as a new patient, she is stable at this time, had hx of bronchitis in ER, feeling good now. 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 She was seen in the emergency room about 4 weeks ago, because of persistent cough for about 4 weeks. Prior to this emergency room visit she had been seen at the urgent care center a few times, treated with course of antibiotic as well as steroids, and still continue to have cough and wheezing, along with some chest discomfort. Chest x-ray was negative. His since her visit in the emergency room she has been using Wixela 1 inhalation b.i.d., and Ventolin 2 puffs Q 4-6 hours p.r.n.. Prior to that she had been on montelukast 10 mg daily. Her symptoms seem to be flaring up due to seasonal allergies. She has the respiratory symptoms going on for the last few years. At present she is comfortable and denies any significant amount of cough or wheezing. She can walk around in the house and outdoors without getting much shortness of breath. She has been a nonsmoker throughout her life. [facility] Medical History (Updated 11/19/23 @ 14:21 by Shae Rodney MD) Allergic rhinitis Asthma Depression Anxiety Fibromyalgia Hypothyroidism Surgical History Hx of cholecystectomy Hx of tubal ligation Family History Mother Asthma Brother HTN (hypertension) Son HTN (hypertension) Social History Household Members: Spouse Housing: Apartment Alcohol intake: never Patient Tobacco Use Status: Never used Tobacco Current occupational status: unemployed Sexual orientation: Straight/Heterosexual Gender identity: Female Review of Systems Const All systems reviewed & are unremarkable except as noted in HPI and below ENT Reports nasal congestion (Mild off and on) Card Denies syncope, Denies irregular heart rhythm and Denies leg edema Resp Reports as per HPI GI Reports heartburn (Symptoms of GERD being treated with omeprazole) Reports no additional complaints Musc Reports no additional complaints Skin/Breast Reports system reviewed and no additional complaints, except as documented Neuro Reports no additional complaints and Denies syncope Psych Reports no additional complaints Endo Reports no additional complaints Yaniv/Lymph Reports no additional complaints Physical Exam Vital Signs: Last Vital Signs Pulse 87 11/19/23 13:47 BP 110/62 11/19/23 13:47 Pulse Ox 96 11/19/23 13:47 Oxygen Delivery Method Room Air 11/19/23 13:47 BMI result Body Mass Index 32.2 Const General: healthy appearing, comfortable, no acute distress, alert and awake Orientation/consciousness: patient oriented x3 HEENT Head: Yes normal to inspection General nose exam: No nasal polyps present and No nasal discharge present Face and sinus: Yes sinuses nontender Mouth: oropharynx normal Throat: Yes posterior oropharynx normal Eyes General: appearance normal, both eyes and all related structures Neck Neck: Yes normal visual inspection, Yes no lymphadenopathy, Yes trachea midline and Yes no JVD Thyroid: Thyroid normal Chest Chest palpation & inspection: normal inspection of the chest, normal palpation of entire chest wall and no tenderness Resp Other: Percussion note is resonant, breath sounds are slightly distant with prolonged expiratory phase. Today no wheezes or rhonchi are heard, and no crepitations. Cardio Palpation: normal PMI Rate: regular rate Rhythm: regular rhythm Heart sounds: Gallop heart sound present and Murmur heart sound present Peripheral pulses: Peripheral pulses 2+ throughout GI Palpation (GI): Soft to palpation, Tenderness to palpation present (GI), No hepatosplenomegaly present and Palpable mass present Auscultation: normal bowel sounds Back/Spine/Pelvis Thoracic/Lumbar Spine: thoracic and lumbar spine normal to inspection Skin General skin exam: no rashes or lesions noted Neuro General: patient oriented x3 and no focal motor deficits Cranial nerves: Yes CN's II-XII intact bilaterally Extrem General: Yes normal to inspection, Yes no clubbing, cyanosis or edema and Yes no calf tenderness Psych Speech and movement: Normal speech and movement present Results Reviewed Results Reviewed: 10/21/23 CHEST X-RAY: UNREMARKABLE. Assessment & Plan Assessment & Plan (1) Allergic rhinitis: Comment: PATIENT DOES HAVE RELATIVELY CHRONIC RECURRENT ALLERGIC RHINITIS PROBABLY RELATED TO SEASONAL ALLERGIES. AT PRESENT IT IS RELATIVELY CONTROLLED Code(s): J30.9 - Allergic rhinitis, unspecified Category: Medical Plan: CONTINUE MONTELUKAST 10 MG DAILY USE LORATADINE 10 MG ONCE A DAY P.R.N. (2) Asthma: Comment: PATIENT SEEMS TO HAVE INTERMITTENT BRONCHIAL ASTHMA RELATED TO SEASONAL ALLERGIES AT PRESENT IT IS THE QUIET AND CONTROLLED. Code(s): J45.909 - Unspecified asthma, uncomplicated Category: Medical Plan: ADVISED TO CONTINUE WIXELA 250-51 INHALATION B.I.D.. USE VENTOLIN 2 PUFFS Q 4-6 HOURS ONLY P.R.N.. PULMONARY FUNCTION TEST IS ORDERED Coding Level of Care Code New Pt Level 3 (67468) Diagnoses Allergic rhinitis J30.9 Asthma J45.909
== END 2023-11-19 14:11 | disposition home or self-care (01) ==
PROVIDERS: PCP Student in an Organized Health Care Education/Training Program; Referring Provider Family Medicine; Visit Provider Internal Medicine
DX: J30.9 Allergic rhinitis, unspecified (principal); J45.909 Unspecified asthma, uncomplicated
CPT/HCPCS: 99203

== ENCOUNTER → 2023-11-19 13:31 | Outpatient (BNVA) | payer OTHER, SELFPAY | PROVIDERS: PCP Student in an Organized Health Care Education/Training Program; Referring Provider Family Medicine; Visit Provider Internal Medicine | DX: J45.909 Unspecified asthma, uncomplicated (principal) | CPT/HCPCS: 99202 ==

== ENCOUNTER 2023-12-22 14:15 | Outpatient (AMB) | payer OTHER, SELFPAY ==
[2023-12-22 14:51] VITALS: BP 118/64; PULSE 72; O2SAT 97; BMI 32.2
--- NOTE | 2023-12-22 14:51 | MHC.OFFVIS ---
Vital Signs 12/22/23 14:51 Height 4 ft 9 in Weight 149 lb BMI 32.2 BP 118/64 Blood Pressure Location Lt brachial Position Sitting Pulse 72 Pulse Source Pulse Oximeter Pulse Oximetry (%) 97 Oxygen Delivery Method Room Air Intake Visit Reasons: Bronchitis/PFT Follow Up Intake Note: pt is here for follow up but could not have pft prior due to no appt available. she is feeling good today. Editorial Manager Required: Yes Editorial Manager Services: Editorial Manager Present Editorial Manager Name: Catrachita Allergies tramadol [TRAMADOL] Allergy (Unknown, Verified 12/22/23 15:13) NAUSEA & VOMITING, nausea and vomiting codeine [CODEINE] Adverse Reaction (Severe, Verified 12/22/23 15:13) NAUSEA & VOMITING Codeine Sulfate Allergy (Unknown, Uncoded 12/22/23 15:13) stomach upset Medication List - Last Reconciled 12/22/23 by Shae Rodney MD albuterol sulfate 90 mcg/actuation 2 puffs inhalation Q6H PRN benzonatate 200 mg PO TID PRN betamethasone dipropionate 0.05% 1 appl topical BID fluticasone propion-salmeterol 250-50 mcg/dose (Wixela Inhub) 1 inh inhalation BID levothyroxine 50 mcg PO DAILY loratadine 10 mg PO DAILY montelukast (Singulair) 10 mg PO DAILY omeprazole 20 mg PO DAILY Do you need a note to return to daycare/school/sports/work: No HPI HPI Bronchitis/PFT Follow Up: Details: THIS 63 YEARS OLD VERY PLEASANT CITIZEN OF THE [place] SPEAKING FEMALE IS HERE FOR FOLLOW-UP. SHE IS USING HER INHALER, WIXELA 250-50 TWICE A DAY REGULARLY. ALSO USES MONTELUKAST 10 MG DAILY AND LORATADINE P.R.N. SHE CLAIMS THAT HER SYMPTOMS ARE WELL CONTROLLED AT THIS TIME AND SHE DOES NOT GET ANY FLARE UPS. COUGH IS INTERMITTENT BUT ONLY MILD. PFSH Medical History Allergic rhinitis Asthma Depression Anxiety Fibromyalgia Hypothyroidism Surgical History Hx of cholecystectomy Hx of tubal ligation Family History Mother Asthma Brother HTN (hypertension) Son HTN (hypertension) Social History Household Members: Spouse Housing: Apartment Alcohol intake: never Patient Tobacco Use Status: Never used Tobacco Current occupational status: unemployed Sexual orientation: Straight/Heterosexual Gender identity: Female Review of Systems Const All systems reviewed & are unremarkable except as noted in HPI and below ENT Reports nasal congestion (Mild off and on) Card Denies syncope, Denies irregular heart rhythm and Denies leg edema Resp Reports as per HPI GI Reports heartburn (Symptoms of GERD being treated with omeprazole) Reports no additional complaints Musc Reports no additional complaints Skin/Breast Reports system reviewed and no additional complaints, except as documented Neuro Reports no additional complaints and Denies syncope Psych Reports no additional complaints Endo Reports no additional complaints Yaniv/Lymph Reports no additional complaints Physical Exam Vital Signs: Last Vital Signs Pulse 72 12/22/23 14:51 BP 118/64 12/22/23 14:51 Pulse Ox 97 12/22/23 14:51 Oxygen Delivery Method Room Air 12/22/23 14:51 BMI result Body Mass Index 32.2 Const General: healthy appearing, comfortable, no acute distress, alert and awake Orientation/consciousness: patient oriented x3 HEENT Head: Yes normal to inspection General nose exam: No nasal polyps present and No nasal discharge present Face and sinus: Yes sinuses nontender Mouth: oropharynx normal Throat: Yes posterior oropharynx normal Eyes General: appearance normal, both eyes and all related structures Neck Neck: Yes normal visual inspection, Yes no lymphadenopathy, Yes trachea midline and Yes no JVD Thyroid: Thyroid normal Chest Chest palpation & inspection: normal inspection of the chest, normal palpation of entire chest wall and no tenderness Resp Other: Percussion note is resonant, breath sounds are slightly distant with prolonged expiratory phase. Today no wheezes or rhonchi are heard, and no crepitations. Cardio Palpation: normal PMI Rate: regular rate Rhythm: regular rhythm Heart sounds: Gallop heart sound present and Murmur heart sound present Peripheral pulses: Peripheral pulses 2+ throughout GI Palpation (GI): Soft to palpation, Tenderness to palpation present (GI), No hepatosplenomegaly present and Palpable mass present Auscultation: normal bowel sounds Back/Spine/Pelvis Thoracic/Lumbar Spine: thoracic and lumbar spine normal to inspection Skin General skin exam: no rashes or lesions noted Neuro General: patient oriented x3 and no focal motor deficits Cranial nerves: Yes CN's II-XII intact bilaterally Extrem General: Yes normal to inspection, Yes no clubbing, cyanosis or edema and Yes no calf tenderness Psych Speech and movement: Normal speech and movement present Office Procedures Spirometry Testing Spirometry Comments: Spirometry done in the office, Dr. Rodney has the results results scanned to her chart. 05269- Spirometry Results Reviewed Results Reviewed: SPIROMETRY Mild obstructive airway disorder, Assessment & Plan Assessment & Plan (1) Allergic rhinitis: Comment: PATIENT DOES HAVE RELATIVELY CHRONIC RECURRENT ALLERGIC RHINITIS PROBABLY RELATED TO SEASONAL ALLERGIES. AT PRESENT IT IS WELL CONTROLLED Code(s): J30.9 - Allergic rhinitis, unspecified Category: Medical Plan: CONTINUE MONTELUKAST 10 MG DAILY. USE LORATADINE 10 MG ONLY P.R.N. (2) Asthma: Comment: PATIENT SEEMS TO HAVE INTERMITTENT BRONCHIAL ASTHMA RELATED TO SEASONAL ALLERGIES AT PRESENT IT IS QUIET AND CONTROLLED. Code(s): J45.909 - Unspecified asthma, uncomplicated Category: Medical Plan: CONTINUE WIXELA 250-51 INHALATION B.I.D. AND ALBUTEROL HFA 2 PUFFS Q 6 HOURS ONLY P.R.N. Coding Level of Care Code Est Pt Level 3 (95033) Diagnoses Allergic rhinitis J30.9 Asthma J45.909 CPT Codes Spirometry - CPT: 41795- Spirometry ([id number])
== END 2023-12-22 15:33 | disposition home or self-care (01) ==
PROVIDERS: PCP Student in an Organized Health Care Education/Training Program; Visit Provider Internal Medicine
DX: J30.9 Allergic rhinitis, unspecified (principal); J45.909 Unspecified asthma, uncomplicated
CPT/HCPCS: 94010; 99213

== ENCOUNTER → 2023-12-22 14:15 | Outpatient (BNVA) | payer OTHER, SELFPAY | PROVIDERS: PCP Student in an Organized Health Care Education/Training Program; Visit Provider Internal Medicine | DX: J45.909 Unspecified asthma, uncomplicated (principal) | CPT/HCPCS: 94010; 99212 ==

== ENCOUNTER 2023-12-24 13:20 | Outpatient (REF) | payer OTHER, SELFPAY ==
--- NOTE | ~2023-12-24 | MM_ITS ---
EXAMINATION: BONE DENSITOMETRY CLINICAL INDICATION: Postmenopausal. Rule out osteoporosis. COMPARISON: This is the patient's baseline examination. TECHNIQUE: Using a [employer] DXA System (software version: 13.1) manufactured by [employer], dual-energy x-ray absorptiometry was performed of the lumbar spine and left hip. The images are of good technical quality. Summary results are attached. FINDINGS: LEFT FEMUR, NECK: BMD 0.682 g/cm2, Z-score -1.2, T-score -2.6, osteoporosis. LEFT FEMUR, TOTAL: BMD 0.812 g/cm2, Z-score -0.4, T-score -1.6, osteopenia. AP SPINE L1-L4: BMD 0.926 g/cm2, Z-score -0.7, T-score -2.1, osteopenia. IDENTIFIED RISK FACTORS: Menopause. HISTORY OF FRACTURE: None listed. MEDICATIONS: None listed. MM/XR DEXA axial skeleton IMPRESSION: 1. DIAGNOSIS: Osteoporosis based on the lowest T-score value of -2.6 in the femoral neck applying World Health Organization criteria. 2. 10-YEAR FRACTURE RISK PREDICTION, FRAX: According to the guidelines, FRAX calculation should only be performed on patients in the osteopenia bone density category. Therefore, FRAX was not performed on this patient. 3. Treatment Recommendations: NOF guidelines recommend consideration for treatment in postmenopausal women and men age 50 and older presenting with the following: -A hip or vertebral (clinical or morphometric) fracture. -T-score less than or equal to -2.5 at the femoral neck or spine after appropriate evaluation to exclude secondary causes. -Low bone mass at the hip or spine and a 10-year fracture probability by FRAX of greater than or equal to 3% for hip fracture or greater than or equal to 20% for major osteoporotic fracture based on the [place] adapted WHO algorithm. 4. Other Recommendations: All treatment decisions require clinical judgment and consideration of individual patient factors, including patient preferences, comorbidities, previous drug use, risk factors not captured in the FRAX model (e.g. frailty, falls, vitamin D deficiency, increased bone turnover, interval significant decline in bone density) and possible under or overestimation of fracture risk by FRAX. Additional medical evaluation for secondary cause of low bone mineral density may be appropriate. FUTURE SCAN RECOMMENDATION: People with diagnosed cases of osteoporosis or at high risk for fracture should have regular bone mineral density tests. For patients eligible for Medicare, routine testing is allowed once every 2 years. The testing frequency can be increased to one year for patients who have rapidly progressing disease, those who are receiving or discontinuing medical therapy to restore bone mass, or have additional risk factors.
== END 2023-12-24 13:21 | disposition home or self-care (01) ==
LOC: HO.MAMMO 13:20
PROVIDERS: PCP Student in an Organized Health Care Education/Training Program; Visit Provider Student in an Organized Health Care Education/Training Program
DX: Z13.820 Encounter for screening for osteoporosis (principal); Z78.0 Asymptomatic menopausal state
CPT/HCPCS: 77080

== ENCOUNTER 2024-01-15 08:52 | Outpatient (REF) | payer OTHER, SELFPAY ==
[2024-01-15 11:33] LABS: Hematocrit 39.8 % (37.0-47.0); Mean Corpuscular HGB Conc 32.7 g/dl (31.0-35.0); Mean Corpuscular Volume 91.9 fL (80.0-98.0); Mean Platelet Volume 12.1 fL (9.4-12.3); Platelet Count 199 X10*3/uL (160-400); Red Blood Count 4.33 X10*6/uL (4.20-5.50); Red Cell Distribution Width 14.5 % (11.0-16.0); White Blood Count 5.3 X10*3/uL (4.8-10.8)
[2024-01-15 11:45] LABS: Estimated Average Glucose 108 mg/dL; Hemoglobin A1c % 5.4 % (<6.0)
[2024-01-15 11:58] LABS: Alanine Aminotransferase 20 U/L (0-31); Albumin Level 3.7 g/dL (3.5-5.0); Alkaline Phosphatase 82 U/L (39-117); Anion Gap 12 (12-20); Aspartate Amino Transferase 18 U/L (5-31); Bilirubin Total 0.6 mg/dL (0.0-1.0); Blood Urea Nitrogen 13 mg/dL (9-16); Calcium 8.5 mg/dL (8.4-10.2); Carbon Dioxide 26 mmol/L (22-29); Chloride 111 mmol/L (96-108); Cholesterol 162 mg/dL (<200); Estimated Glomerular Filt Rate > 60; Glucose Random 98 mg/dL (60-115); HDL Cholesterol 49 mg/dL (>40); LDL Cholesterol Calculated 98 mg/dL (<100); Potassium 3.9 mmol/L (3.3-5.1); Sodium 145 mmol/L (135-145); Total Protein 6.6 g/dL (6.5-8.0); Triglycerides 79 mg/dL (<150)
[2024-01-15 12:06] LABS: Free T4 (Free Thyroxine) 0.85 ng/dL (0.71-1.85); Thyroid Stimulating Hormone 0.97 uIU/mL (0.32-4.0)
[2024-01-16 08:42] LABS: Syphilis Screen Nonreactive (Nonreactive)
[2024-01-16 09:28] LABS: HBS Num1 0.32 mIU/mL (0-7.99); HBc Num1 0.19 S/CO (0.00-0.79); HBsAGNum1 0.32 S/CO (0.00-0.99); HIV AB/AG Nonreactive (Nonreactive); HIV Num 1 0.05 S/CO (0.00-0.99); Hepatitis B Core Antibody Nonreactive (Nonreactive); Hepatitis B Surface Antigen Negative (Negative); ~HepC Num1 0.16 S/CO (0.00-0.79); ~Hepatitis B Surface Antibody NONREACTIVE (Nonreactive); ~Hepatitis C Antibody Nonreactive (Nonreactive)
== END 2024-01-15 08:53 | disposition home or self-care (01) ==
LOC: HO.HHCL 08:52
PROVIDERS: Visit Provider Student in an Organized Health Care Education/Training Program
DX: Z00.00 Encounter for general adult medical examination without abnormal findings (principal); Z13.1 Encounter for screening for diabetes mellitus
CPT/HCPCS: 36415; 80053; 80061; 82306; 83036; 84439; 84443; 85027; 86704; 86706; 86780; 86803; 87340; 87389

== ENCOUNTER 2024-01-20 16:04 | Outpatient (REF) | payer OTHER, SELFPAY ==
[2024-01-20 17:03] LABS: Creatinine Urine 87.62 mg/dL; Microalbum/Creatinine Ratio Ur 10.2 ug/mg cr (<30)
[2024-01-20 18:40] LABS: CT PCR NOT DETECTED (Not Detect.); NG PCR NOT DETECTED (Not Detect.)
== END 2024-01-20 16:05 | disposition home or self-care (01) ==
LOC: HO.HHCLNP 16:04
PROVIDERS: Visit Provider Student in an Organized Health Care Education/Training Program
DX: Z00.00 Encounter for general adult medical examination without abnormal findings (principal)
CPT/HCPCS: 82043; 82570; 87491; 87591

== ENCOUNTER 2024-02-11 13:00 | Outpatient (RCR) | payer OTHER, SELFPAY | END 2024-03-17 11:36 | disposition home or self-care (01) | LOC: HO.PT 13:00 | PROVIDERS: PCP Student in an Organized Health Care Education/Training Program; Visit Provider Student in an Organized Health Care Education/Training Program | DX: M54.50 Low back pain, unspecified (principal) | CPT/HCPCS: 97110; 97140; 97162; 97530; 97535 ==

== ENCOUNTER 2024-03-23 13:42 | Outpatient (AMB) | payer OTHER, SELFPAY ==
[2024-03-23 13:48] VITALS: BMI 32.0
--- NOTE | 2024-03-23 13:48 | A.OFFVIS_ITS ---
Vital Signs 03/23/24 13:48 Height 4 ft 9 in Weight 147 lb 11.355 oz BMI 32.0 Intake Visit Reasons: Vaginal itch Creative Specialist Required: Yes Creative Specialist Language: Pier Master Assistant Services: Creative Specialist Present (in person) Creative Specialist Name: Fransisca TATE Information Interpreted: non-clinical & clinical Therapeutic Activities Services Worker: Therapeutic Activities Services Worker Present (Fransisca TATE) Allergies tramadol [TRAMADOL] Allergy (Unknown, Verified 03/23/24 13:52) NAUSEA & VOMITING, nausea and vomiting codeine [CODEINE] Adverse Reaction (Severe, Verified 03/23/24 13:52) NAUSEA & VOMITING Codeine Sulfate Allergy (Unknown, Uncoded 03/23/24 13:52) stomach upset Post menopausal: Yes HPI Comments Details: Presenting complaining of bilateral vulvar itching of 2 months' duration no associated vaginal discharge or odor PFSH Medical History Allergic rhinitis Asthma Depression Anxiety Fibromyalgia Hypothyroidism Surgical History Hx of cholecystectomy Hx of tubal ligation Family History Mother Asthma Brother HTN (hypertension) Son HTN (hypertension) Social History Household Members: Spouse Housing: Apartment Alcohol intake: never Patient Tobacco Use Status: Never used Tobacco Current occupational status: unemployed Sexual orientation: Straight/Heterosexual Gender identity: Female Review of Systems Const All systems reviewed & are unremarkable except as noted in HPI and below Physical Exam Vital Signs: BMI result Body Mass Index 32.0 General: Yes no CVA tenderness External Female Exam: normal appearance of the urethra and other (Bilateral posterior labia majora leukoplakia) Speculum Exam - Vagina: normal appearance of the vagina, normal palpation, no lesions and no masses Speculum Exam - Cervix: normal appearance of the cervix, normal palpation, no lesions, no masses and nontender Bimanual exam- vagina & uterus: normal bimanual exam, normal palpation, uterine size normal, normal palpation, uterine shape normal, No Cervical tenderness present and non-tender Bimanual Exam- Adnexa, other: normal adnexae Back/Spine/Pelvis Back: no CVA tenderness Assessment & Plan Assessment & Plan (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 Instructions given the patient to schedule vulvar biopsy within 2 weeks. All questions answered, the patient verbalized understanding. Coding Level of Care Code Est Pt Level 3 (71659) Diagnoses Vulvar leukoplakia N90.4
== END 2024-03-23 14:25 | disposition home or self-care (01) ==
LOC: HO.HWS 13:42
PROVIDERS: PCP Student in an Organized Health Care Education/Training Program; Visit Provider Obstetrics & Gynecology
DX: N90.4 Leukoplakia of vulva (principal)
CPT/HCPCS: 99213

== ENCOUNTER → 2024-03-23 13:42 | Outpatient (BNVA) | payer OTHER, SELFPAY | PROVIDERS: PCP Student in an Organized Health Care Education/Training Program; Visit Provider Obstetrics & Gynecology | DX: N90.4 Leukoplakia of vulva (principal) | CPT/HCPCS: 99212 ==

== ENCOUNTER 2024-04-15 09:29 | Outpatient (REF) | payer OTHER, SELFPAY | END 2024-04-15 09:30 | disposition home or self-care (01) | LOC: HO.LNP 09:29 | PROVIDERS: PCP Student in an Organized Health Care Education/Training Program; Visit Provider Obstetrics & Gynecology | DX: N90.4 Leukoplakia of vulva (principal) | CPT/HCPCS: 56605; 88305; 88312 ==

== ENCOUNTER 2024-04-15 09:29 | Outpatient (AMB) | payer OTHER, SELFPAY ==
[2024-04-15 10:02] VITALS: BMI 32.0
--- NOTE | 2024-04-15 10:02 | A.OFFVIS_ITS ---
Vital Signs 04/15/24 10:02 Height 4 ft 9 in Weight 147 lb 11.355 oz BMI 32.0 Intake Visit Reasons: Vulva Biopsy Supervisor Tank House Required: Yes Supervisor Tank House Language: Product Safety Expert Services: Supervisor Tank House Present (in person) Supervisor Tank House Name: Fransisca TATE Information Interpreted: non-clinical & clinical Decision Science Analyst: Decision Science Analyst Present (Fransisca TATE) Accompanied by: Self / Same As Patient Allergies tramadol [TRAMADOL] Allergy (Unknown, Verified 04/15/24 10:08) NAUSEA & VOMITING, nausea and vomiting codeine [CODEINE] Adverse Reaction (Severe, Verified 04/15/24 10:08) NAUSEA & VOMITING Codeine Sulfate Allergy (Unknown, Uncoded 04/15/24 10:08) stomach upset Post menopausal: Yes HPI Comments Details: Presenting for procedure vulvar biopsy for bilateral posterior vulvar leukoplakia PFSH Medical History Allergic rhinitis Asthma Depression Anxiety Fibromyalgia Hypothyroidism Surgical History Hx of cholecystectomy Hx of tubal ligation Family History Mother Asthma Brother HTN (hypertension) Son HTN (hypertension) Social History Household Members: Spouse Housing: Apartment Alcohol intake: never Patient Tobacco Use Status: Never used Tobacco Current occupational status: unemployed Sexual orientation: Straight/Heterosexual Gender identity: Female Review of Systems Const All systems reviewed & are unremarkable except as noted in HPI and below Reports as per HPI and Reports no additional complaints GI Reports no additional complaints Reports no additional complaints Physical Exam Vital Signs: BMI result Body Mass Index 32.0 Office Procedures SENIOR BIOSTATISTICIAN Biopsy Before the procedure was started d/w patient the procedure, alternatives ( do nothing, medical rx), & all the risks associated with the procedure ( bleeding , infection, vulvar scarring, painful intercourse, injury to vessels, possible need for transfusion with all its risks) then patient signed the consent. Preop dx: Left posterior labia majora leukoplakia Op: Left posterior labia majora leukoplakia biopsy Post op: Same Anesthesia: Lidocaine 1% 3cc used Procedure: Using betadine the area was scrubbed and draped in the usual manner. 3 cc of lidocaine was used for anesthesia at the Left posterior labia majora leukoplakia area ; using scissors and pickup the Left posterior labia majora leukoplakia area was biopsied. Pressure was used for hemostasis. The patient tolerated the procedure well. Discharge Instructions: The patient was instructed to schedule an appointment in 2 weeks for follow-up and to call if temp>100.4, area of the biopsy redness or pain, nausea/vomiting. This note was generated with a voice recognition program. Some errors may have been overlooked during the review of this note. Sometimes these errors may affect the content or meaning of a given sentence. 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 See procedure note. Orders: Orders AMB SENIOR BIOSTATISTICIAN Biopsy Today N90.4 - Leukoplakia of vulva Coding Level of Care Code Procedure Only Diagnoses Vulvar leukoplakia N90.4 CPT Codes SENIOR BIOSTATISTICIAN Biopsy - CPT: 66297-Ozjgwk of Vulva/Perineum ([id number])
== END 2024-04-15 10:25 | disposition home or self-care (01) ==
PROVIDERS: PCP Student in an Organized Health Care Education/Training Program; Visit Provider Obstetrics & Gynecology
DX: N90.4 Leukoplakia of vulva (principal)
CPT/HCPCS: 56605

== ENCOUNTER 2024-05-05 15:21 | Outpatient (AMB) | payer OTHER, SELFPAY ==
--- NOTE | 2024-05-05 15:21 | A.OFFVIS_ITS ---
Intake Visit Reasons: Biopsy results ([phone]) International Organizer Required: Yes International Organizer Language: Commercial Drafter Services: International Organizer Present (in person) International Organizer Name: Fransisca TATE Information Interpreted: non-clinical & clinical Director Of Student Financial Services: Director Of Student Financial Services Present (Fransisca TATE) Allergies tramadol [TRAMADOL] Allergy (Unknown, Verified 05/05/24 15:22) NAUSEA & VOMITING, nausea and vomiting codeine [CODEINE] Adverse Reaction (Severe, Verified 05/05/24 15:22) NAUSEA & VOMITING Codeine Sulfate Allergy (Unknown, Uncoded 05/05/24 15:22) stomach upset Post menopausal: Yes HPI Comments Details: The patient is scheduled tele health visit to discuss the results of vulvar biopsy. Doing well with no complaints. The pathology showed the following: Vulva, biopsy: Spongiotic dermatitis with pigment incontinence; negative for fungi. See comment. Comment: The differential includes trauma, contact/irritant, allergic and atopic etiologies; no fungi are seen; no atypia is identified PFSH Medical History Allergic rhinitis Asthma Depression Anxiety Fibromyalgia Hypothyroidism Surgical History Hx of cholecystectomy Hx of tubal ligation Family History Mother Asthma Brother HTN (hypertension) Son HTN (hypertension) Social History Household Members: Spouse Housing: Apartment Alcohol intake: never Patient Tobacco Use Status: Never used Tobacco Current occupational status: unemployed Sexual orientation: Straight/Heterosexual Gender identity: Female Review of Systems Const All systems reviewed & are unremarkable except as noted in HPI and below Reports as per HPI and Reports no additional complaints GI Reports no additional complaints Reports no additional complaints Telehealth Telehealth Telehealth Platform: Telephone Location of provider rendering services: practice address Location of patient: address on file Patient Identification confirmed using: Name, : Yes Telehealth method: voice only Patient verbally consented to treatment: Yes Patient verbally consented to billing insurance company: Yes Patient informed of any privacy concerns related to visit: Yes Assessment & Plan Assessment & Plan (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 for 5 days. Instr uctions given the patient to call if symptoms not improve, for identification of any nonhealing ulcer, hard areas at the perineum. All questions answered, the patient verbalized understanding. I spent a total of 20 minutes reviewing the chart, talking to the patient via phone and documenting in the medical record. Medications: New clobetasol 0.05% Then maintenance therapy for 2-3 times per week 1 appl topical BID 5 days 45 grams 0RF Discontinued betamethasone dipropionate 0.05% use BID for one week, then daily at bedtime x one, then every other day. Discontinued Reason: Doctor's Order 1 appl topical BID 15 grams 0RF Coding Level of Care Code Tele Est Pt Level 1 (36222) Diagnoses Vulvar leukoplakia N90.4
== END 2024-05-05 15:40 | disposition home or self-care (01) ==
LOC: HO.HWS 15:21
PROVIDERS: PCP Student in an Organized Health Care Education/Training Program; Visit Provider Obstetrics & Gynecology
DX: N90.4 Leukoplakia of vulva (principal)
CPT/HCPCS: 99211

== ENCOUNTER 2024-06-14 14:20 | Outpatient (REF) | payer OTHER, SELFPAY | END 2024-06-14 14:21 | disposition home or self-care (01) | LOC: HO.MAMMO 14:20 | PROVIDERS: PCP Student in an Organized Health Care Education/Training Program; Visit Provider Student in an Organized Health Care Education/Training Program | DX: Z12.31 Encounter for screening mammogram for malignant neoplasm of breast (principal) | CPT/HCPCS: 77063; 77067 ==

== ENCOUNTER → 2024-06-14 14:30 | Outpatient (BNV) | payer OTHER, SELFPAY | PROVIDERS: PCP Student in an Organized Health Care Education/Training Program; Visit Provider Internal Medicine | DX: Z12.31 Encounter for screening mammogram for malignant neoplasm of breast (principal) | CPT/HCPCS: 77063; 77067 ==

== ENCOUNTER 2024-06-28 13:40 | Outpatient (AMB) | payer OTHER, SELFPAY ==
--- NOTE | 2024-06-28 13:55 | A.OFFVIS_ITS ---
Vital Signs 06/28/24 13:56 Height 4 ft 9 in Weight 144 lb 6.444 oz BMI 31.2 BP 102/64 Blood Pressure Location Lt brachial Position Sitting Pulse 85 Pulse Source Pulse Oximeter Pulse Oximetry (%) 95 Oxygen Delivery Method Room Air Intake Visit Reasons: Bronchitis/PFT Follow Up Intake Note: pt is here for follow up and states she is feeling pretty well, but is having some pain right lower lung pain in back for about a few months, but increasing in the past months with walking increasing, and short of breath with stairs. She lives on [address]. Needs refill on wixela, albuterol, singular and loratidine. Uniform Room Attendant Required: Yes Uniform Room Attendant Services: Uniform Room Attendant Present Uniform Room Attendant Name: kady (OA) Allergies tramadol [TRAMADOL] Allergy (Unknown, Verified 06/28/24 14:13) NAUSEA & VOMITING, nausea and vomiting codeine [CODEINE] Adverse Reaction (Severe, Verified 06/28/24 14:13) NAUSEA & VOMITING Codeine Sulfate Allergy (Unknown, Uncoded 06/28/24 14:13) stomach upset Medication List - Last Reconciled 06/28/24 by Shae Rodney MD albuterol sulfate 90 mcg/actuation 2 puffs inhalation Q6H PRN benzonatate 200 mg PO TID PRN clobetasol 0.05% 1 appl topical BID 5 days fluticasone propion-salmeterol 250-50 mcg/dose (Wixela Inhub) 1 inh inhalation BID levothyroxine 50 mcg PO DAILY loratadine 10 mg PO DAILY montelukast (Singulair) 10 mg PO DAILY omeprazole 20 mg PO DAILY HPI HPI Bronchitis/PFT Follow Up: Details: 64 YEARS OLD [place] SPEAKING FEMALE IS HERE FOR FOLLOW-UP AFTER 6 MONTHS. SHE IS BEING FOLLOWED UP AND TREATED FOR ALLERGIC RHINITIS AND CHRONIC OBSTRUCTIVE PULMONARY DISEASE. BREATHING BEAN SHE HAS REMAINED VERY STABLE WITHOUT ANY. ACUTE EXACERBATION SHE COMPLAINS OF DISCOMFORT IN THE RIGHT SIDE OF THE CHEST AND SPINE FOR THE LAST FEW MONTHS, BUT IT DOES NOT AFFECT HER BREATHING. THE PAIN SEEMS TO BE MUSCULAR IN NATURE. SHE CONTINUES TO USE MEDICAL REGIMEN REGULARLY. PFSH Medical History Allergic rhinitis Asthma Depression Anxiety Fibromyalgia Hypothyroidism Surgical History Hx of cholecystectomy Hx of tubal ligation Family History Mother Asthma Brother HTN (hypertension) Son HTN (hypertension) Social History Household Members: Spouse Housing: Apartment Alcohol intake: never Patient Tobacco Use Status: Never used Tobacco Current occupational status: unemployed Sexual orientation: Straight/Heterosexual Gender identity: Female Review of Systems Const All systems reviewed & are unremarkable except as noted in HPI and below ENT Reports nasal congestion (Mild off and on) Card Denies syncope, Denies irregular heart rhythm and Denies leg edema Resp Reports as per HPI GI Reports heartburn (Symptoms of GERD being treated with omeprazole) Reports no additional complaints Musc Reports no additional complaints Skin/Breast Reports system reviewed and no additional complaints, except as documented Neuro Reports no additional complaints and Denies syncope Psych Reports no additional complaints Endo Reports no additional complaints Yaniv/Lymph Reports no additional complaints Physical Exam Vital Signs: Last Vital Signs Pulse 85 06/28/24 13:56 BP 102/64 06/28/24 13:56 Pulse Ox 95 06/28/24 13:56 Oxygen Delivery Method Room Air 06/28/24 13:56 BMI result Body Mass Index 31.2 Const General: healthy appearing, comfortable, no acute distress, alert and awake Orientation/consciousness: patient oriented x3 HEENT Head: Yes normal to inspection General nose exam: No nasal polyps present and No nasal discharge present Face and sinus: Yes sinuses nontender Mouth: oropharynx normal Throat: Yes posterior oropharynx normal Eyes General: appearance normal, both eyes and all related structures Neck Neck: Yes normal visual inspection, Yes no lymphadenopathy, Yes trachea midline and Yes no JVD Thyroid: Thyroid normal Chest Chest palpation & inspection: normal inspection of the chest, normal palpation of entire chest wall and no tenderness Resp Other: Percussion note is resonant, breath sounds are slightly distant with prolonged expiratory phase. Today no wheezes or rhonchi are heard, and no crepitations. Cardio Palpation: normal PMI Rate: regular rate Rhythm: regular rhythm Heart sounds: Gallop heart sound present and Murmur heart sound present Peripheral pulses: Peripheral pulses 2+ throughout GI Palpation (GI): Soft to palpation, Tenderness to palpation present (GI), No hepatosplenomegaly present and Palpable mass present Auscultation: normal bowel sounds Back/Spine/Pelvis Thoracic/Lumbar Spine: thoracic and lumbar spine normal to inspection Skin General skin exam: no rashes or lesions noted Neuro General: patient oriented x3 and no focal motor deficits Cranial nerves: Yes CN's II-XII intact bilaterally Extrem General: Yes normal to inspection, Yes no clubbing, cyanosis or edema and Yes no calf tenderness Psych Speech and movement: Normal speech and movement present Assessment & Plan Assessment & Plan (1) Asthma: Comment: PATIENT SEEMS TO HAVE INTERMITTENT BRONCHIAL ASTHMA RELATED TO SEASONAL ALLERGIES AT PRESENT IT IS WELL CONTROLLED AND STABLE. Code(s): J45.909 - Unspecified asthma, uncomplicated Category: Medical Plan: FLUTICASONE-SALMETEROL ( WIXELA) 250-50 1 INHALATION B.I.D. PRESCRIPTION IS RENEWED ALBUTEROL HFA 2 PUFFS Q 4-6 HOURS P.R.N. (2) Allergic rhinitis: Comment: PATIENT DOES HAVE RELATIVELY CHRONIC RECURRENT ALLERGIC RHINITIS PROBABLY RELATED TO SEASONAL ALLERGIES. AT PRESENT IT IS WELL CONTROLLED Code(s): J30.9 - Allergic rhinitis, unspecified Category: Medical Plan: MONTELUKAST 10 MG DAILY. LORATADINE 10 MG ONCE A DAY P.R.N. Medications: New albuterol sulfate 90 mcg/actuation 2 puffs inhalation Q4-6H 30 days PRN 8.5 grams 5RF shortness of breath or wheezing Changed From fluticasone propion-salmeterol 250-50 mcg/dose (Wixela Inhub) 1 inh inhalation BID To fluticasone propion-salmeterol 250-50 mcg/dose (Wixela Inhub) 1 inh inhalation BID 30 days 60 ea 5RF ASTHMA/COPD Coding Level of Care Code Est Pt Level 3 (04327) Diagnoses Asthma J45.909 Allergic rhinitis J30.9
[2024-06-28 13:56] VITALS: BP 102/64; PULSE 85; O2SAT 95; BMI 31.2
== END 2024-06-28 14:17 | disposition home or self-care (01) ==
PROVIDERS: PCP Student in an Organized Health Care Education/Training Program; Visit Provider Internal Medicine
DX: J45.909 Unspecified asthma, uncomplicated (principal); J30.9 Allergic rhinitis, unspecified
CPT/HCPCS: 99213

== ENCOUNTER → 2024-06-28 13:40 | Outpatient (BNVA) | payer OTHER, SELFPAY | PROVIDERS: PCP Student in an Organized Health Care Education/Training Program; Visit Provider Internal Medicine | DX: J45.909 Unspecified asthma, uncomplicated (principal) | CPT/HCPCS: 99212 ==

== ENCOUNTER → 2024-07-21 13:36 | Outpatient (BNVA) | payer OTHER, SELFPAY | PROVIDERS: PCP Student in an Organized Health Care Education/Training Program; Visit Provider Advanced Practice Midwife | DX: Z01.419 Encounter for gynecological examination (general) (routine) without abnormal findings (principal) | CPT/HCPCS: 99397; 99459 ==

== ENCOUNTER 2024-09-30 10:51 | Outpatient (REF) | payer OTHER, SELFPAY ==
--- NOTE | ~2024-09-30 | XR_ITS ---
CLINICAL HISTORY: pt with bilateral hip discomofrt with ambulation AP pelvis, Two views of left and right hip. COMPARISON: None FINDINGS: Pelvic ring appears maintained. Pelvic phleboliths present. Degenerative changes of the partially visualized lower lumbar spine. Right hip: Visualized portions of the proximal right femur appears intact. Right femoral head is appropriately seated in the acetabulum. No significant degenerative changes. Left hip: Visualized portions of the proximal left femur appears intact. Left femoral head is appropriately seated in the acetabulum. No significant degenerative changes. IMPRESSION: 1. No radiographic evidence of acute injury to the pelvis and bilateral hips. No significant degenerative changes of the bilateral hips. 2. Degenerative changes of the partially visualized lower lumbar spine. This document has been electronically signed by: Luis Armando Medina MD on 09/30/2024 20:56:11
--- NOTE | ~2024-09-30 | XR_ITS ---
CLINICAL HISTORY: LOW BACK PAIN Three views of the lumbar spine. COMPARISON: None FINDINGS: Five [id number] lumbar type vertebral bodies. Normal vertebral body alignment. Vertebral body heights are maintained. No evidence of acute vertebral body injury. Loss of disc space height at L4-5 and L5-S1. Small marginal osteophytes present throughout the lumbar spine. Facet joint arthrosis present within the mid to lower lumbar spine with neural foraminal narrowing most pronounced at L5-S1. Visualized portions of the bones of the pelvis appear intact. Moderate colonic stool burden. IMPRESSION: 1. No radiographic evidence of acute injury to the lumbar spine. 2. Moderate to advanced lower lumbar spondylosis most pronounced at L5-S1. This document has been electronically signed by: Luis Armando Medina MD on 09/30/2024 20:57:12
--- OUTSIDE RECORDS SUMMARY | 2024-09-30 13:02 | XMS_ITS | Clinical Summary ---
Author Organization [employer] Address [address] [facility] [address] [place] [address] Care Team Providers Care Offset Pressman Name Role Phone Lucía Nixon MD Primary Care Pro vider Allergies Active Allergy Reactions Criticality Noted Date Comments Codeine Other 07/16/2022 GI side effects Menthol 12/03/2023 Tramadol Dizziness 11/12/2013 Medications Blood Pressure Monitoring (Omron 3 Series BP Monitor) device USE TO CHECK BLOOD PRESSURE ONCE DAILY DIRECTED 01/16/20 22 Active Diclofenac Sodium 1 % gelIndications: Chronic bilateral low back pain with bilateral sciatica TO APPLY TO THE AFFECTED AREA 3 TIMES A DAY 100 g 1 01/30/20 23 Active albuterol (Ventolin HFA) 108 (90 Base) MCG/ACT inhaler INHALE 2 PUFFS BY MOUTH FOUR TIMES A DAY IF NEEDED FOR WHEEZING, SHORTNESS OF BREATH, OR COUGH. 60.3 g 09/17/19 24 Active calcium carbonate (Calcium 600) 600 MG tablet Take 1 tablet (600 mg) by mouth with breakfast and with evening meal. 60 tablet 11 01/20/20 24 025 Active Fluticasone-Apolinar meterol (Wixela Inhub) 500-50 MCG/ACT aerosol powder Inhale 1 puff at noon and 1 puff in the evening. 1 each 2 04/09/20 24 Active loratadine (Claritin) 10 MG tablet TAKE 1 TABLET BY MOUTH EVERY DAY NEEDED 90 tablet 1 04/12/20 24 Active levothyroxine (Synthroid, Levoxyl) 75 MCG tablet TAKE 1 TABLET BY MOUTH EVERY DAY IN THE MORNING 90 tablet 1 07/13/19 25 Active alendronate (Fosamax) 70 MG tablet TAKE 1 TABLET (70 MG) BY MOUTH EVERY 7 (SEVEN) DAYS. TAKE IN THE MORNING WITH A FULL GLASS OF WATER, ON AN EMPTY STOMACH, AND DO NOT TAKE ANYTHING ELSE BY MOUTH OR LIE DOWN FOR THE NEXT 30 MIN. 4 tablet 5 07/19/19 25 026 Active omeprazole (PriLOSEC) [address] capsuleIndicati ons:Gastroesoph ageal reflux disease, unspecified whether esophagitis present TAKE 1 CAPSULE BY MOUTH BEFORE BREAKFAST 90 capsule 08/24/19 25 Active montelukast (Singulair) 10 MG tablet TAKE 1 TABLET (10 MG) BY MOUTH IN THE EVENING 90 tablet 08/24/19 25 Active Icosapent Ethyl (Vascepa) 1 g capsule Take 2 capsules (2 g) by mouth with breakfast and with evening meal. 120 capsule 3 09/28/19 25 026 Active cholecalciferol (Vitamin D-3) 50 MCG (1999 UT) tabletIndicatio ns:Vitamin D deficiency TOME ARIANA TABLETA TODOS LOS D 90 tablet 1 09/28/19 25 Active lidocaine (Lidoderm) 5 % patchIndication s:Muscle spasm Apply topically to affected areas. Leave on for up to 12 hours 30 patch 1 09/28/19 25 Active cholecalciferol (Vitamin D-3) 50 MCG (1999 UT) tabletIndicatio ns:Vitamin D deficiency TOME ARIANA TABLETA TODOS LOS D 90 tablet 3 09/06/19 23 025 Discontinued(Re order (will not trigger notification to Pharmacy)) meclizine (Antivert) 25 MG tablet TAKE 1 TABLET BY MOUTH 3 TIMES A DAY NEEDED FOR DIZZINESS 30 tablet 11 08/22/19 24 025 Discontinued(Ot her) cyclobenzaprine (Flexeril) 5 MG tabletIndicatio ns:Muscle spasm Take 1 tablet (5 mg) by mouth if needed in the morning, at noon, and at bedtime for muscle spasms. 10 tablet 04/09/20 24 025 Discontinued(Ot her) lidocaine (Lidoderm) 5 % patchIndication s:Muscle spasm Apply topically to affected areas. Leave on for up to 12 hours 30 patch 1 04/09/20 24 025 Discontinued(Re order (will not trigger notification to Pharmacy)) ibuprofen 400 MG tabletIndicatio ns:Muscle spasm TAKE 1 TABLET (400 MG) BY MOUTH EVERY 6 (SIX) HOURS IF NEEDED FOR MODERATE PAIN. 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 Overview (03/23/2024): Established w/ C JOIST SETTER, plan for biopsy per 03/23/24 JOIST SETTER note Allergic rhinitis 01/20/2024 Osteoporosis 01/20/2024 Lower extremity edema 01/20/2024 Obesity (BMI 30-39.9) 12/03/2023 Insomnia 12/03/2023 Chronic right-sided low back pain without sciati ca 12/03/2023 Right shoulder pain 12/03/2023 Hepatic steatosis 12/01/2022 Overview (12/01/2022): Present on US on 09/19/22 Stress incontinence of urine 12/01/2022 Overview (12/30/2022): Recommend kegels Pt states she is happy to use pads for light stress incontinence Followup PRN Hypertriglyceridemia 11/29/2022 Assessment & Plan (12/30/2022 5:13 PM EDT): Pt has Elevated TG in last lipid panel 09/04/22 Not taking recommended dose Will increase dose of Lovaza, 2 g BID Followup PRN Health care maintenance 09/02/2022 Overview (12/01/2022): Immunizations: TDAP 11/29/22; Shingles x 2 HIV: nonreactive 08/02/20 Hep C: nonreactive 08/02/20 Hepatitis B: 2022 guidelines CDC recommends screen all adults aged 18 years and older at least once in their lifetime using a triple panel test. patients screen every . Discuss next visit Pap Smear: 10/08/2018, followup Mammogram: 12/06/21 BIRADS 3; repeat in 6 months. 06/11/22 Birads 3 - recommended diagnostic mammography at time of next annual , due in 12 months BMD: >age 65. Perform next year 2023 Colonoscopy: 02/26/2019 Mild sigmoid diverticulosis, otherwise normal colonoscopy findings. Repeat 10 years, 2028 Lung cancer: never smoker Gastroesophageal reflux disease 07/16/2022 Overview (12/30/2022): Treating with omeprazole 20 mg daily PRN Avoid triggers Bilateral cataracts 11/06/2021 Hypothyroidism 10/03/2021 Cyst of kidney, acquired 11/03/2020 Chronic obstructive lung disease 04/12/2015 Overview (12/30/2022): Treating with Advair Diskus 1 puff every 12 hours Cobalamin deficiency 04/12/2015 Resolved Problems Problem Noted Date Diagnosed Date Resolved Date Elevated blood pressure reading 12/03/2023 01/21/2024 Leg cramping 12/01/2022 12/03/2023 Overview (12/30/2022): Reports leg cramping x 3 months. Worse at night. Starts in soles and spreads up legs. Unknown reason. CMP and Mg WNL 11/29/22 Thyroid panel WNL 09/04/22. Dx of hypothyroidism. Treating with levothyroxine 75mcg daily. Pt reports leg cramps improved since she was seen 11/29/22 Cramping worse at night, after walking a lot. Reports she does not drink water, mostly juice. Assessment & Plan (12/30/2022 5:10 PM EDT): Ddx: poorly controlled hypothyroidism, dehydration, flat feet Educated pt that most likely cause is hypothyroidism, exercise associated spasms, and dehydration Drink water + crystal light; goal 6 glasses of water/day Daily stretching. Continue levothyroxine daily F/u 3 months with new PCP or sooner PRN Weakness of right hand 12/01/202212/02 Overview (12/30/2022): Pt reports R hand pain, 3rd digit, trigger finger. Radiating pain up arm. EMG ordered 11/29/22, not performed yet. Hx of trigger finger left hand Assessment & Plan (12/30/2022 5:04 PM EDT): Hx and exam c/w Trigger finger/possible carpal or cubital tunnel Reports R hand weakness, 3rd digit sticking Positive phalen sign Ordered EMG 11/29/22 Will task MA to assist with scheduling EMG Notify results Refer to Hand Surgery for eval F/u 3 months with new PCP or sooner PRN Crohn's disease 07/16/2022 12/03/2023 Bacterial vaginosis 07/16/2022 11/30/19 Assessment & Plan (07/16/2022 5:52 PM EST): BV swab from last week at [facility] reviewed showed Gardnerella Vaginalis Given that patient is symptomatic now, I will rx metronidazole bid x 7d. Counseled to avoid use of panty liners, indiscriminate use of abs or vaginal douches FU prn Depressive disorder 04/12/2015 12/03/19 24 Lumbago with sciatica 04/12/20152023 Overview (12/30/2022): Also reports lumbar pain has not improved. R worse than L. Chronic condition of fibromyalgia, aggravated by sitting for long periods of time or walking long time. Pt reports back pain and hip pain; worsening. Intermittent. Reports no pain during visit. Rx Voltaren gel, improving sx slightly. Has not been stretching Assessment & Plan (12/30/2022 5:09 PM EDT): Hx and exam c/w with acute on chronic pain Recommended heat ice Printed out exercises again for patient Refer PT Continue Voltaren gel F/u 3 months with new PCP or sooner PRN Encounters Date Type Department Care Team Description 09/27/2024 1:45 PM EDT Office Visit [facility] MEDICINE [address] [place] [address] [phone] Lucía Nixon MD Chronic low back pain without sciatica, unspecified back pain laterality (Primary Dx); Vitamin D deficiency; Muscle spasm; Bilateral hip pain; Dietary counseling; Exercise counseling; Chronic obstructive pulmonary disease, unspecified COPD type ([facility]); Health care maintenance; Chronic right-sided low back pain without sciatica; Obesity (BMI 30-39.9); Acquired hypothyroidism; Osteoporosis, unspecified osteoporosis type, unspecified pathological fracture presence; Poor memory 09/27/2024 Telephone [facility] MEDICINE [address] [place] [address] Lucía Nixon MD Appointment Request 09/27/2024 Travel 09/16/2024 Telephone [facility] MEDICINE [address] [place] [address] Jojo Stevens ANP DME from [facility] 09/15/2024 Telephone [facility] MED[facility]INE [address] [place] [address] Jojo Stevens ANP DME from Home care 09/14/2024 Telephone [facility] [address] [place] [address] Lucía Nixon MD chart prep 08/24/2024 Refill [facility] [address] [place] [address] Lucía Nixon MD Hypertriglyceridemia 08/22/2024 Refill [facility] [address] [place] [address] Lucía Nixon MD Gastroesophageal reflux disease, unspecified whether esophagitis present 08/17/2024 Telephone [facility] [address] [place] [address] Lucía Nixon MD Durable Medical Equipment 07/26/2024 Telephone [facility] [address] [place] [address] Lucía Nixon MD Durable Medical Equipment (Compression stockings) 07/17/2024 Refill [facility] [address] [place] [address] Lucía Nixon MD 07/13/2024 Refill [facility] MED[facility]INE [address] [place] [address] Lucía Nixon MD 07/10/2024 Refill [facility] WALK-IN [facility]ENTER [address] [place] [address] [place], Elena, PAPER BAG PRESS OPERATOR Muscle spasm from Last 3 Months Immunizations Name Administration Dates Next Due Influenza injectable quadriv alent IIV4 with preservative 04/12/2015 Influenza injectable quadriv alent preservative free 09/06/2021,04/09/2019,06/04/2018,04/03 Influenza, IIV3, injectable 03/25/2011 Influenza, Split (incl. chaz fied surface antigen) 04/09/2013,03/26/2012 Pneumococcal Conjugate PCV 20 12/03/2023 Pneumococcal Polysaccharide PPSV23 08/04/2007 TD (adult), 2 Lf tetanus tox oid, preservative free, adsorbed 09/16/2005 Tdap 11/29/2022,03/26/2012 Zoster, Recombinant 01/16/2022,11/06/2021 Family History Medical History Relation Name Comments HTN Brother Asthma Mother Relation Name Status Comments Brother Mother Social History Tobacco Use Types Packs/Day Years Used Date Smoking Tobacco: Never Passive Smoke Exposure: Never Smokeless Tobacco: Never Tobacco Cessation:Counseling Given: Not Answered Alcohol Use Standard Drinks/Week Comments Never 0 (1 standard drink = 0.6 oz pur e alcohol) Depression Answer Date Recorded Patient Health Questionnaire-9 Score 4 12/03/2023 Patient Health Questionnaire-9 Score 4 12/03/2023 Last PHQ-9: Questionnaire Data Not on file 0 12/03/2023 Housing Stability Answer Date Recorded What is your housing situation today? I have sulma ron 04/17/[address] you li ve. Do you have problems with any of the following? None of the above 04/17/2023 Food Insecurity Answer Date Recorded Within the past 12 months, y ou worried that your food would run out before you got money to buy more: Never True 04/17/2023 Within the past 12 months,th e food you bought just didn't last and you didn't have enough money to get more: Never True Transportation Answer Date Recorded In the past 12 months, has l ack of transportation kept you from medical appts, meetings, work or from getting things needed for daily living? No 04/17/2023 Utilities Answer Date Recorded In the past 12 months, has t he electric, gas, oil or water company threatened to shut off services in your home? No 04/17/2023 Depression Answer Date Recorded Patient Health Questionnaire-2 Score 0 12/03/2023 Comments Unknown Sex and Gender Information Value Date Recorded Sex Assigned at Female 04/22/2022 10:18 AM EDT Legal Sex Female 10:18 AM EDT Gender Identity Female 04/22/2022 10:18 AM EDT Sexual Orientation Straight 04/22/2022 10 :18 AM EDT Last Filed Vital Signs Vital Sign Reading Time Taken Comments Blood Pressure 129/75 09/27/2024 1:46 PM EDT Pulse 80 09/27/2024 1:46 PM EDT Temperature 36.6 ??C (97.8 ??F) 09/27/2024 1:46 PM ED T Respiratory Rate 20 09/27/2024 1:46 PM EDT Oxygen Saturation 96% 09/27/2024 1:46 PM EDT Inhaled Oxygen Concentration - - Weight 66.1 kg (145 lb 12.8 oz) 09/27/2024 1:46 PM EDT Height 144.8 cm (4' 9 ) 09/27/2024 1:46 PM EDT Body Mass Index 31.55 09/27/2024 1:46 PM EDT Plan of Treatment Upcoming Encounters Date Type Department Care Team (Late st Contact Info) Description 10/05/2024 1:00 PM EDT Office Visit [facility] OPTOMETRY [address] [place] [address] Lilliam Turpin, OD [address] [place] [address] 11/18/2024 1:30 PM EDT Clinical Support [facility] MEDICINE [address] [place] [phone] 12/03/2024 1:15 PM EDT Office Visit [facility] MEDICINE [address] [place] [phone] Lucía Nixon MD [address] [place] [address] Health Maintenance Due Date Last Done Comments CT Colonography 1960 FIT DNA/Cologuard 1960 FIT 1960 FOBT 1960 Sigmoidoscopy 1960 Hepatitis A Vaccines (1 of 2 - Risk 2-dose series) 1977 Hepatitis B Vaccines (1 of 3 - Risk 3-dose series) 2018 RSV Patients and Patients Aged 60 years or older (1 - Risk 60-74 years 1-dose series) 2018 COVID-19 Vaccine ( - season) 2024 Influenza Vaccine (#1) 2024 , 04/09/2019, 06/04/2018, Additional history exists SDOH Screening 11/23/2024 11/24/2023 Depression Screening 12/02/2024 12/03/2023, 12/03/19 24 Mammogram 06/14/2025 06/14/2024, 02/0 06/2023, 06/13/2023, Additional history exists Alcohol/Substance Use Screening 09/27/2025 09/27/2024 Tobacco Screening 09/27/2025 09/27/2024 HPV/Cotest 07/16/2028 Pap Smear 07/16/2028 07/16/2023, 10/09/2018 Lipid Panel 01/14/2029 01/15/2024, 08/21, 11/02/2021, Additional history exists Colonoscopy 02/26/2029 02/26/2019 Colorectal Cancer Screening 02/26/2029 DTaP/Tdap/Td Vaccines (3 - Td or Tdap) 11/29/2032 11/29/2022, 03/26/2012, 09/16/2005 Zoster Vaccines Completed 01/16/2022, 11/06/2021 Pneumococcal Vaccine: 50+ Years Completed 12/03/2023, 08/04/2007 Hepatitis C Screening Completed 01/15/2024, 021 HIB Vaccines Aged Out No longer eligi ble based on patient's age to complete this topic HPV Vaccines Aged Out No longer eligi ble based on patient's age to complete this topic IPV Vaccines Aged Out No longer eligi ble based on patient's age to complete this topic Meningococcal Vaccine Aged Out No alva nguyễn eligible based on patient's age to complete this topic RSV under 20 months Aged Out No longe r eligible based on patient's age to complete this topic Rotavirus Vaccines Aged Out No longer eligible based on patient's age to complete this topic Procedures Procedure Name Priority Date/Time Associated Diagnosis Comments BI MAMMOGRAM SCREENING TOMOSYNTHESIS BILATERAL Routine 06/14/2024 2:30 PM EST LIPID PANEL, STANDARD Routine 01/15/2024 8:56 AM EDT Annual physical exam HEPATITIS C AB W/REFL TO HCV RNA, QN, PCR Routine 01/15/2024 8:46 AM EDT Annual physical exam PAP SMEAR Routine 07/16/2023 3:14 PM EST HM COLONOSCOPY Routine 02/26/2019 12:21 PM EDT from Last 3 Months or Most Recently Relevant to Health Maintenance Results * BI Mammogram Screening Tomosynthesis Bilateral (06/14/2024 2:30 PM EST) Anatomical Region Laterality Modality Breast Bilateral Mammography 06/14/2024 2:30 PM EST Narrative 06/28/2024 1:33 PM EST ? [facility] [place] ? [address] ?[place] [address] ? Mammography Report ? Signed ? Patient: Efe,Cheli ?MR#: [id number] ?? [id number] ? : 1960 ?Acct:[id number] ? Age/Sex: 63 / F ?ADM Date: 12/23/24 ? Loc: HO.MAMMO ? Attending Dr: Lucía Good MD ? Ordering Physician: Lucía Nixon MD ?Re ?? sults: 1Negative ? Date of Service: 06/14/24 ?Follow Up: 1 Year From Orig ?? inal Mammogram ? Procedure(s): MM tomosynthesis screening BI ?? Accession Number(s): [id number] ? cc: Lucía Nixon MD ? EXAMINATION: ?? MM SCREENING DIGITAL BREAST TOMOSYNTHESIS, BILATERAL ? CLINICAL INFORMATION: ? Screening. Asymptomatic. ? COMPARISON: ?? Mammography: Comparison is made with available priors ? TECHNIQUE: ?? Digital breast mammography with tomosynthesis is performed in both the ?? craniocaudal and mediolateral oblique views along with computer-aided ?? detection (CAD). ? FINDINGS: ?? The breasts are heterogeneously dense, which may obscure small masses ?? (ACR BI-RADS breast composition Category c). ? There are no significant masses, abnormal calcifications, or other ?? abnormalities. ? MM/MM tomosynthesis screening BI ?? IMPRESSION: ?? No mammographic evidence of malignancy. ? ASSESSMENT: ? BI-RADS BI-RADS 1 - Negative ? RECOMMENDATION: ?? Routine annual mammography screening. ? 1 year F/U ? This examination should not preclude the clinical evaluation of a ?? suspicious palpable abnormality. ? This patient's information was entered into a reminder system with a ?? target due date for their next mammogram. ? Electronically signed by: ??Kaykay Fernandez DO ??06/28/2024 01:30 PM EST ?? RP ? Dictated By: ?Kaykay Fernandez DO ? Signed By: ?<Electronically signed by Kaykay Fernandez, DO in OV> ? 06/28/24 1330 ? DD/ 1430 ? TD/TT: 06/14/24 1450 ? Bottom Cementer: ? Procedure Note Nicholas, Image - 06/28/2024 [facility] [address] [place], [place] [address] Mammography Report Signed Patient: Edy Wilks#: [id number] : 8Acct:[id number] Age/Sex: 63 / FADM Date: 06/14/24 Loc: HO.MAMMO Attending Dr: Lucía Good MD Ordering Physician: Lucía Nixon sults: 1Negative Date of Service: 06/14/24Follow Up: 1 Year From Orig inal Mammogram Procedure(s): MM tomosynthesis screening BI Accession Number(s): [id number] cc: Lucía Nixon MD EXAMINATION: MM SCREENING DIGITAL BREAST TOMOSYNTHESIS, BILATERAL CLINICAL INFORMATION: Screening. Asymptomatic. COMPARISON: Mammography: Comparison is made with available priors TECHNIQUE: Digital breast mammography with tomosynthesis is performed in both the craniocaudal and mediolateral oblique views along with computer-aided detection (CAD). FINDINGS: The breasts are heterogeneously dense, which may obscure small masses (ACR BI-RADS breast composition Category c). There are no significant masses, abnormal calcifications, or other abnormalities. MM/MM tomosynthesis screening BI IMPRESSION: No mammographic evidence of malignancy. ASSESSMENT: BI-RADS BI-RADS 1 - Negative RECOMMENDATION: Routine annual mammography screening. 1 year F/U This examination should not preclude the clinical evaluation of a suspicious palpable abnormality. This patient's information was entered into a reminder system with a target due date for their next mammogram. Electronically signed by: Kaykay Fernandez DO 06/28/2024 01:30 PM [facility] Dictated By: Kaykay Fernandez DO Signed By: <Electronically signed by Kaykay Fernandez DO in OV> 06/28/24 1330 DD/ 1430 TD/TT: 06/14/24 1450 Bottom Cementer: us Lucía Good MD IMG BI PROCEDURES Edited Result - Final * Lipid Panel, Standard (01/15/2024 8:56 AM EDT) Triglycerides 79 <150 mg/dL [facility] Comment:Desirable Triglyceri de: less than 150 mg/dLBorderline High Triglyceride 150-199 mg/dLHigh Triglyceride: 200-499 mg/dLVery High Triglyceride: greater than or equal to 5OO mg/dL Cholesterol 162 <200 mg/dL [facility] Comment:Desirable Cholestero l: less than 200 mg/dLBorderline High Cholesterol: 200-239 mg/dLHigh Cholesterol: greater than 239 mg/dL LDL Cholesterol Calculated 98 <100 mg/dL [facility] Comment:Desirable LDL: less than 100 mg/dLNear Optimal/Above Optimal LDL: 110- 129 mg/dLBorderline High LDL: 130-159 mg/dLHigh LDL: 160-189 mg/dLVery High LDL: greater than or equal to 190 mg/dL HDL Cholesterol 49 >40 mg/dL [facility] Comment:Desirable HDL: great er than 40 mg/dL Note: This HDL assay may give artificially low results in patients with liver disease. Blood Venous blood specimen / Unknown 01/15/2024 8:56 AM EDT 01/15/2024 11:14 AM EDT us Lucía Good MD LAB BLOOD ORDERAB LES Final Result Performing Organization Address City/[facility]/ZIP Co de Phone Number [facility] [address] [place] [address] [phone] * Hepatitis C Antibody with Reflex to HCV, RNA, Quantitative, Real-Time PCR (01/15/2024 8:46 AM EDT) Hepatitis C Antibody Nonreactive Nonreactive [facility] Comment:Antibodies to HCV no t detected; does not exclude early acuteHCV infection. Blood Venous blood specimen / Unknown 01/15/2024 8:46 AM EDT 01/15/2024 11:14 AM EDT Lucía Good MD LAB BLOOD ORDERAB LES Final Result [facility] [address] [place] [address] [phone] * Pap Smear (07/16/2023 3:14 PM EST) 07/16/2023 3:14 PM EST 07/17/2023 8:00 AM EST Narrative [facility] - 08/01/2023 3:14 PM EST ----- ------- Name: Cheli Wilks ?Age/Sex: 63/F ? : 1960 Unit#: [id number] ?? Attend Dr: Kanwal Horta CNM ?Re07/16/23 ?Status: DEP REF ? Location: HO.LNP ?Disch: ? ----- ------- SPEC : [id number] ? RECD: 07/17/23-799 ? STATUS: ??SOUT ? REQ NUM: [id number] ? SHIRA: 07/16/23-1514 ? SUBM DR: Kanwal Horta CNRikki ? ENTERED: ??07/17/23-1103 ?SP TYPE: Pap Smr ?OTHR DR: Alta Martinez PAPER BAG PRESS OPERATOR ? ORDERED: ??Pap Smear ? Interpretation ?? Satisfactory for evaluation. ?? Negative for intraepithelial lesion or malignancy. ?HPV mRNA E6/E7: ?NOT DETECTED ? This assay detects E6/E7 viral messenger RNA (mRNA) from 14 high-risk HPV types (16, 18, ?? 31, 33, 35, 39, 45, 51, 52, 56, 58, 59, 66, 68) ?? HPV testing performed by [email or web address], [place], [place]. ??See reference laboratory ?? portion of the EMR for entire report. ?Clinical Information LMP: Postmenopausal Previous PAP test: 2019, WNL ? Material Received ?? ThinPrep-Cervical Copies To: ?? Kanwal Horta CNM ?? [address] ?? [place] [address] ?? [phone] ?? Alta Martinez ?? [address] ?? [place] [address] ?? [phone] ----- ------- Signed (signature on file) ZAIN Ochoa ([facility]) 08/01/23 1514 ? ----- ------- ? END OF REPORT ? Generic External Data Provider LAB CYTOLOGY CJ ALEXANDER Final Result [facility] [address] [place] [phone] * Hm Colonoscopy (02/26/2019 12:21 PM EDT) Historical Provider HEALTH MAINTENANCE Final Result from Last 3 Months or Most Recently Relevant to Health Maintenance Insurance [facility] Care Teams Offset Pressman Relationship Specialty Start Date End Date Lucía Nixon MD [address] [place] [phone] PCP - General Internal Medicine 12/30/22
--- OUTSIDE RECORDS SUMMARY | 2024-09-30 13:02 | XMS_ITS | Encounter Summary ---
Author Organization [employer] Address [address] [facility] 7t [place] [address] Care Team Providers Care Ostomy Nurse Name Role Phone Lucía Nixon MD Primary Care Pro vider Encounter Details Date Type Department Care Team (Late st Contact Info) Description 11/24/2023 Orders Only [facility] [address] [place] [address] ProviderAmairani MD Social History Tobacco Use Types Packs/Day Years Used Date Smoking Tobacco: Never Passive Smoke Exposure: Never Smokeless Tobacco: Never Alcohol Use Standard Drinks/Week Comments Never 0 (1 standard drink = 0.6 oz pur e alcohol) Depression Answer Date Recorded Patient Health Questionnaire-9 Score 0 11/29/2022 Housing Stability Answer Date Recorded What is [...] Date Recorded Patient Health Questionnaire-2 Score 0 11/29/2022 Comments Unknown Sex and Gender Information Value Date Recorded Sex Assigned at Female 04/22/2022 10:18 AM EDT Legal Sex Female 10:18 AM EDT Gender Identity Female 04/22/2022 10:18 AM EDT Sexual Orientation Straight 04/22/2022 10 :18 AM EDT documented as of this encounter Plan of Treatment Upcoming Encounters Date Type Department Care Team (Late st Contact Info) Description 10/05/2024 1:00 PM EDT Office Visit [facility] [address] [place] [address] Papi, Lilliam, OD [address] [place] [address] 11/18/2024 1:30 PM EDT Clinical Support [facility] [address] [place] [address] 12/03/2024 1:15 PM EDT Office Visit [facility] [address] [place] [address] Lucía Nixon MD [address] [place] [phone] documented as of this encounter Procedures Procedure Name Priority Date/Time Associated Diagnosis Comments HM COLONOSCOPY Routine 02/26/2019 12:21 PM EDT documented in this encounter Results * Hm Colonoscopy (02/26/2019 12:21 PM EDT) Historical Provider HEALTH MAINTENANCE Final Result documented in this encounter Visit Diagnoses Not on filedocumented in this encounter Additional Health Concerns Assessment Noted Time PHQ-9 Depression Total Score: 0 11/30/19 2:40 PM EDT documented as of this encounter Care Teams Ostomy Nurse Relationship Specialty Start Date End Date Lucía Nixon MD [address] [place] [phone] PCP - General Internal Medicine 12/30/22 documented as of this encounter
--- OUTSIDE RECORDS SUMMARY | 2024-09-30 13:02 | XMS_ITS | Clinical Summary ---
Author Organization [facility] Address [address] [place] [address] [place] [address] Phone Care Team Providers Care Marketing Communications Associate Name Role Phone Dave JimP-Karin Primary Care Provider Unavailable Allergies Active Allergy Reactions Criticality Noted Date Comments Codeine 11/02/2020 Tramadol 11/02/2020 Medications fluticasone-janie meterol (ADVAIR DISKUS) 250-50 MCG/DOSE diskus inhaler Inhale 1 puff 2 (two) times a day Rinse mouth with water after use to reduce aftertaste and incidence of candidiasis. Do not swallow. Active loratadine (CLARITIN) 10 MG tablet Take 10 mg by mouth 1 (one) time each day Active montelukast (SINGULAIR) 10 MG tablet Take 10 mg by mouth every night Active omeprazole (PriLOSEC) [address] capsule Take 20 mg by mouth 1 (one) time each day Do not crush or chew. Active levothyroxine (SYNTHROID, LEVOTHROID) 75 MCG tablet TOME ARAINA TABLETA TODOS LOS D 1 Active Cholecalciferol (Vitamin D3) 50 MCG (1999 UT) tablet TOME ARIANA TABLETA TODOS LOS D 1 Active Active Problems Problem Noted Date Diagnosed Date Cyst of kidney 11/03/2020 Social History Tobacco Use Types Packs/Day Years Used Date Smoking Tobacco: Never Smokeless Tobacco: Never Alcohol Use Standard Drinks/Week Comments Never 0 (1 standard drink = 0.6 oz pur e alcohol) Comments Unknown Sex and Gender Information Value Date Recorded Sex Assigned at Not on file Legal Sex Female 3:47 PM EDT Gender Identity Not on file Sexual Orientation Not on file Last Filed Vital Signs Vital Sign Reading Time Taken Comments Blood Pressure 104/62 12/07/2020 1:43 PM EDT Pulse 98 12/07/2020 1:43 PM EDT Temperature - - Respiratory Rate - - Oxygen Saturation 97% 12/07/2020 1:43 PM EDT Inhaled Oxygen Concentration - - Weight 62.9 kg (138 lb 9.6 oz) 12/07/2020 1:43 P M EDT Height - - Body Mass Index - - Plan of Treatment Health Maintenance Due Date Last Done Comments Breast Cancer Screening 1960 Colorectal Cancer Screening: Annual FOBT 2007 Colorectal Cancer Screening: Colonoscopy 2007 Colorectal Cancer Screening: Sigmoidoscopy 2007 Pneumococcal Vaccine: 50+ Ye ars (1 - PCV) 2023 Influenza Vaccine (Season Ended) 2025 Hepatitis B Vaccine Aged Out No longe r eligible based on patient's age to complete this topic Insurance Medicaid [place] Member Subscriber Plan / Payer (Ef fective 2020-Present) Name:Cheli Wilks Relation to Subscriber:Self Name:Cheli Wilks Payer ID:Not on file Group ID:Not on file Type:Not on file Address: [place] [id number] Medicaid [place] Care Teams Marketing Communications Associate Relationship Specialty Start Date End Date Dave Jim FNP-C PCP - General Nurse Practitioner 09/07/20
--- OUTSIDE RECORDS SUMMARY | 2024-09-30 13:02 | XMS_ITS | Encounter Summary ---
Author Organization [employer] Address [address] [facility] 7t [place] [address] Care Team Providers Care Safety Patrol Officer Name Role Phone Lucía Nixon MD Primary Care Pro vider Encounter Details Date Type Department Care Team (Latest Contact Info) Description 09/27/2024 Travel Social History Tobacco Use Types Packs/Day Years [...] Description 10/05/2024 1:00 PM EDT Office Visit [facility] [address] [place] [address] Papi, Lilliam, OD [address] [place] [address] 11/18/2024 1:30 PM EDT Clinical Support [facility] [address] [place] [address] 12/03/2024 1:15 PM EDT Office Visit [facility] [address] [place] [address] Lucía Nixon MD [address] [place] [address] documented as of this encounter Visit Diagnoses Not on filedocumented in this encounter Additional Health Concerns Assessment Noted Time PHQ-9 Depression Total Score: 4 12/03/19 24 2:12 PM EDT documented as of this encounter Care Teams Safety Patrol Officer Relationship Specialty Start Date End Date Lucía Nixon MD [address] [place] [phone] PCP - General Internal Medicine 12/30/22 documented as of this encounter
--- OUTSIDE RECORDS SUMMARY | 2024-09-30 13:02 | XMS_ITS | Encounter Summary ---
Author Organization [employer] Address [address] [place] [address] Care Team Providers Care Teacher'S Aide Name Role Phone Alta Martinez [facility] Primary Care Provider [phone]- [phone] Lucía Nixon MD Primary Care Pro vider Reason for Visit * Reason Onset Date Comments call back 07/29/2022 Encounter Details Date Type Department Care Team (Late st Contact Info) Description 07/29/2022 Telephone [facility] [address] [place] [address] Alta Martinez [address] Dept [place] [address] call back Social History Tobacco Use Types Packs/Day Years Used Date Smoking Tobacco: Never Passive Smoke Exposure: Never Alcohol Use Standard Drinks/Week Comments Never 0 (1 standard drink = 0.6 oz pur e alcohol) Comments Unknown Sex and Gender Information Value Date Recorded Sex Assigned at Female 04/22/2022 10:18 AM EDT Legal Sex Female 10:18 AM EDT Gender Identity Female 04/22/2022 10:18 AM EDT Sexual Orientation Straight 04/22/2022 10 :18 AM EDT COVID-19 Exposure Response Date Recorded In the last 10 days, have yo u been in contact with someone who was confirmed or suspected to have Coronavirus/COVID-19? No / Unsure 07/16/2022 3:31 PM EST documented as of this encounter Miscellaneous Notes * Telephone Encounter - Yossi Love - 07/29/2022 2:06 PM EST Tc from pt returning call. Pt requesting call a back documented in this encounter Plan of Treatment Upcoming Encounters Date Type Department Care Team (Late st Contact Info) Description 10/05/2024 1:00 PM EDT Office Visit [facility] [address] [place] [address] Papi, Lilliam, OD [address] [place] [address] 11/18/2024 1:30 PM EDT Clinical Support [facility] [address] [place], [place] [phone] 12/03/2024 1:15 PM EDT Office Visit [facility] [address] [place], [place] [phone] Lucía Nixon MD [address] [place], [place] [phone] documented as of this encounter Visit Diagnoses Not on filedocumented in this encounter Care Teams Teacher'S Aide Relationship Specialty Start Date End Date Alta [place] FNP PCP - General Family Medicine 02/14/22 12/29/22 Lucía Nixon MD [address] [place] [address] [phone] PCP - General Internal Medicine 12/30/22 documented as of this encounter
--- OUTSIDE RECORDS SUMMARY | 2024-09-30 13:02 | XMS_ITS | Encounter Summary ---
Author Organization [email or web address] Address [address] [facility] [address] [place] [address] Care Team Providers Care Authors Motivational Name Role Phone Lucía Nixon MD Primary Care Pro vider Encounter Details Date Type Department Care Team (Late Contact Info) Description 01/01/[address] [facility]INE [address] [place], [place] [phone] Lucía Nixon MD [address] [place], [place] [phone] Social History Tobacco Use Types Packs/Day Years Used Date Smoking Tobacco: Never Passive Smoke Exposure: Never Smokeless Tobacco: Never Alcohol Use Standard Drinks/Week Comments Never 0 (1 standard drink = 0.6 oz pur e alcohol) Depression Answer Date Recorded Patient Health Questionnaire-9 Score 0 11/29/2022 Depression Answer Date Recorded Patient Health Questionnaire-2 [...] suspected to have Coronavirus/COVID-19? No / Unsure 12/30/2022 3:24 PM EDT documented as of this encounter Plan of Treatment Upcoming Encounters Date Type Department Care Team (Late Contact Info) Description 10/05/2024 1:00 PM EDT Office Visit [facility] [address] [place] [address] Lilliam Turpin, OD [address] [place] [address] 11/18/2024 1:30 PM EDT Clinical Support [address] [address] 12/03/2024 1:15 PM EDT Office Visit [facility] [address] [place] [address] Lucía Nixon MD [address] [place] [address] documented as of this encounter Procedures Procedure Name Priority Date/Time Associated Diagnosis Comments PAP/HPV Routine 10/09/2018 12:00 AM EDT documented in this encounter Results * Pap Smear (10/09/2018 12:00 AM EDT) us Historical Provider HEALTH MAINTENANCE Final Result [facility] [address] [place] [phone] [phone] documented in this encounter Visit Diagnoses Not on filedocumented in this encounter Additional Health Concerns Assessment Noted Time PHQ-9 Depression Total Score: 0 11/30/19 23 2:40 PM EDT documented as of this encounter Care Teams Authors Motivational Relationship Specialty Start Date End Date Lucía Nixon MD [address] [place] [phone] PCP - General Internal Medicine 12/30/22 documented as of this encounter
--- OUTSIDE RECORDS SUMMARY | 2024-09-30 13:02 | XMS_ITS | Encounter Summary ---
Author Organization [employer] Address [address] [facility] [place] [address] Care Team Providers Care Director Electronics Name Role Phone Lucía Nixon MD Primary Care Pro vider Reason for Referral * Medications - Closed Specialty Diagnoses / Procedures Referred By Jose De Jesus greene Referred To Contact Diagnoses Muscle spasm Lucía Nixon MD [address] [place] [address] Phone: tel: fax: Referral ID Status Reason Start Date Expiration Date Visits Re quested Visits Authorized [id number] Closed 1 1 Encounter Details Date Type Department Care Team (Late st Contact Info) Description 09/27/2024 1:45 PM EDT Office Visit [facility] [address] [place] [address] Lucía Nixon MD [address] [place] [address] Chronic low back pain without sciatica, unspecified back pain laterality (Primary Dx); Vitamin D deficiency; Muscle spasm; Bilateral hip pain; Dietary counseling; Exercise counseling; Chronic obstructive pulmonary disease, unspecified COPD type (CMS/HCC); Health care maintenance; Chronic right-sided low back pain without sciatica; Obesity (BMI 30-39.9); Acquired hypothyroidism; Osteoporosis, unspecified osteoporosis type, unspecified pathological fracture presence; Poor memory Social History Tobacco Use Types Packs/Day Years [...] AM EDT documented as of this encounter Last Filed Vital Signs Vital Sign Reading [...] Mass Index 31.55 09/27/2024 1:46 PM EDT documented in this encounter Progress Notes * Lucía Good MD - 09/27/2024 1:45 PM EDT Subjective Patient ID: Cheli Coleman is a 64 y.o. female who presents for f up apt HPI 63 y o F w PMX of Obesity, COPD,hepatic steatosis, GERD,urinary incontinence,vertigo, hypothyroidism, HLD,osteoporosis ,vulvar leukoplaquia Pt comes for f up apt Reports feeling well, reports pain in shoulder improved but ongoing lower back discomfort -chronic , not done yet lumbar XR ordered at last apt ,denies neuropathic complaints Assessment and Plan: Health care maintenance -Annual exam done 11/2023 -Menopause: 51 y o age -pap smear : 06/2023 Neg/HPV neg -MM 05/2024 :BIRADS 1,dense breast -to repeat in 1 y -Pascale 7.5% so no need for further testing -colonoscopy: -2018 Normal -DEXA scan 12/2023 : Osteoporosis based on the lowest T-score value of -2.6 in the femoral neck -Vaccines: s/p Tdap 11/2022 , Shingrix x 2 , COVID 19 : never -refuse , P20 11/2023 ,RSV vaccine advised today to get at her px,-Hep B not immune -refuse, Flu vaccine refuse ------- -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 -01/15/2024 microalb neg -change to vascepattoday given pt reports omega 3 no longer cover by insurance COPD There is mentions of COPD in system -Saw pulm 06/2024 for 1st apt -Dr Walker --rec to continue current meds and referred for PFT -continue ANDRZEJ prn -continue Wixela 500/50 1 Puff BID,montelukast daily Obesity Lots 5 pounsd in last 6 mo w diet BMI 32<--32.5 -Advised pt to improve diet and exercise,discussed healthy life style -discussed business development recruiter referral -seen before but refuse to continue Hypothyroidism -01/15/2024-TFT wnl -continue levothyroxine 75 mcg daily -Repeat TFT at annual exam at next apt GERD -pt chronically on omeprazole 20 mg daily--States used maybe once a week -explained that if needing more often to inform me in which case I will refer to GI Insomnia Denies depression nor anxiety Awakes early -sleep hygiene advised -melatonin has 3 mg at home Lumbalgia Reports pain in right side of her lower back chronic for years ,denies numbness ,tingling nor weakness in Les ,does have cramps ,no cold nor pale Hx of fall > 1 y ago Normal neuro exam Completed PT per pt months ago w no major help for her back -tylenol \lidoderm patch -XR lumbar--not done -order again today w hip bl XR for reported some inguinal discomfort associated Right shoulder pain Improved Reports having pain in her right shoulder for more than 1 mo ,denies hx of trauma ,states pain improved but since then not able to raise arm ,denies swelling,erythema nor increase skin temp. Possible Frozen shoulder Reports completed PT -tylenol \lidoderm patch -right shoulder XR -never done -if not better will refer to orthopedic for possible steroid inj Osteoporosis -DEXA scan 12/2023 : Osteoporosis based on the lowest T-score value of -2.6 in the femoral neck - 01/15/2024-vit D 43 wnl -resume alendronate weekly+ ca 600 mg BID-started in 12/2023 --not taking consistently --will count tx starting now 09/2024 -Continue vit D 2000 daily w normal vit D on this dose -DEXA scan in 2 y from last one Allergic rhinitis -industrial safety and health specialist 12/22/2023 F for Allergic rhinitis- rec to continue montelukast and loratadine PRN Lower extremity edema -Px Compressions stoking for BL lower extremity -trace -more at night No concern for DVT--request to staffing account manager compressions stockings 20-30 mgHg below knees 1 pair w 2 refills -monitor at next apt -advised to raise legs when possible Poor memory Noted poor memory -requested staffing account manager today to eval prior next apt w me Review of Systems -chronic lumbalgia Objective BP 129/75 (BP Location: Right arm, Patient Position: Sitting, BP Cuff Size: Adult) Pulse 80 Temp 97.8 ??F (36.6 ??C) (Temporal) Resp 20 Ht 4' 9 (1.448 m) Wt 145 lb 12.8 oz (66.1 kg) [id number]% BMI 31.55 kg/m?? Physical Exam Constitutional: General: She is not in acute distress. Appearance: Normal appearance. Musculoskeletal: General: Tenderness present. No swelling or deformity. Comments: Tenderness w palpation in lower back in para and spinal points , hips w normal ROM There is slight decrease in right LE seems from pain,normal sensory Neurological: Mental Status: She is alert. Assessment/Plan Problem List Items Addressed This Visit Chronic obstructive lung disease (CMS/[facility]) Hypothyroidism Health care maintenance Obesity (BMI 30-39.9) Chronic right-sided low back pain without sciatica Osteoporosis Other Visit Diagnoses Chronic low back pain without sciatica, unspecified back pain laterality - Primary Relevant Orders XR Lumbar Spine 2-3 Views Vitamin D deficiency Relevant Medications cholecalciferol (Vitamin D-3) 50 MCG (1999 UT) tablet Muscle spasm Relevant Medications lidocaine (Lidoderm) 5 % patch Bilateral hip pain Relevant Orders XR Hips Bilateral with Pelvis 1 view Dietary counseling Exercise counseling documented in this encounter Plan of Treatment Upcoming Encounters Date Type Department Care Team (Late st Contact Info) Description 10/05/2024 1:00 PM EDT Office Visit [facility] [address] [place], [place] [phone] Lilliam Turpin, OD [address] [place], [place] [phone] 11/18/2024 1:30 PM EDT Clinical Support [facility] [address] [place] [phone] 12/03/2024 1:15 PM EDT Office Visit [facility] [address] [place] [address] [phone] Lucía Nixon MD [address] [place], [place] [phone] Scheduled Orders Name Type Priority Associated Diagnoses Orde r Schedule XR Lumbar Spine 2-3 Views Imaging Routine Chronic low back pain without sciatica, unspecified back pain laterality Expected: 09/27/2024, Expires: 09/27/2025 XR Hips Bilateral with Pelvis 1 view Imaging Routine Bilateral hip pain Expected: 09/27/2024, Expires: 09/27/2025 documented as of this encounter Visit Diagnoses Diagnosis Chronic low back pain without sciatica, unspecified back pain laterality- Primary Vitamin D deficiency Muscle spasm Spasm of muscle Bilateral hip pain Pain in joint, pelvic region and thigh Dietary counseling Dietary surveillance and counseling Exercise counseling Chronic obstructive pulmonary disease, unspecified COPD type ([facility]) Health care maintenance Obesity (BMI 30-39.9) Acquired hypothyroidism Unspecified hypothyroidism Osteoporosis, unspecified osteoporosis type, unspecified pathological fracture presence Poor memory Memory loss documented in this encounter Additional Health Concerns Assessment Noted Time PHQ-9 Depression Total Score: 4 12/03/19 24 2:12 PM EDT documented as of this encounter Care Teams Director Electronics Relationship Specialty Start Date End Date Lucía Nixon MD [address] [place] [id number] PCP - General Internal Medicine 12/30/22 documented as of this encounter
--- OUTSIDE RECORDS SUMMARY | 2024-09-30 13:02 | XMS_ITS | Encounter Summary ---
Author Organization [employer] Address [address] [facility] [address] [place] [address] Care Team Providers Care Director Of Financial Planning Name Role Phone Lucía Nixon MD Primary Care Pro vider Reason for Visit * Reason Onset Date Comments Appointment Request 09/27/2024 Encounter Details Date Type Department Care Team ([facility] st Contact Info) Description 09/27/2024 Telephone [facility] [address] [place] [address] Luíca Nixon MD [address] [place] [address] Appointment Request Social History Tobacco Use Types Packs/Day Years [...] AM EDT documented as of this encounter Miscellaneous Notes * Telephone Encounter - Claritza Beth - 09/27/2024 2:55 PM EDT Called Patient left vm, advised to call back and schedule 30 min memory evaluation with Elder RN (Labeled Nurse Visit) Last week of October (2 weeks before PCP visit). If Patient calls back ok to schedule. documented in this encounter Plan of Treatment Upcoming Encounters Date Type Department Care Team (Late st Contact Info) Description 10/05/2024 1:00 PM EDT Office Visit [facility] [address] [place] [address] Papi, Lilliam, OD [address] [place] [address] 11/18/2024 1:30 PM EDT Clinical Support [facility] [address] [place] [address] 12/03/2024 1:15 PM EDT Office Visit [facility] [address] [place] [address] Lucía Nixon MD [address] [place] [address] documented as of this encounter Visit Diagnoses Not on filedocumented in this encounter Additional Health Concerns Assessment Noted Time PHQ-9 Depression Total Score: 4 12/03/19 24 2:12 PM EDT documented as of this encounter Care Teams Director Of Financial Planning Relationship Specialty Start Date End Date Lucía Nixon MD [address] [place] [phone] PCP - General Internal Medicine 12/30/22 documented as of this encounter
== END 2024-09-30 10:52 | disposition home or self-care (01) ==
LOC: HO.XRAY 10:51
PROVIDERS: PCP Student in an Organized Health Care Education/Training Program; Visit Provider Student in an Organized Health Care Education/Training Program
DX: M25.551 Pain in right hip (principal); M25.552 Pain in left hip; M54.50 Low back pain, unspecified; G89.29 Other chronic pain
CPT/HCPCS: 72100; 73521

== ENCOUNTER → 2024-09-30 10:56 | Outpatient (BNV) | payer OTHER, SELFPAY | PROVIDERS: PCP Student in an Organized Health Care Education/Training Program; Visit Provider Radiology Diagnostic Radiology | DX: M51.369 Other intervertebral disc degeneration, lumbar region without mention of lumbar back pain or lower extremity pain (principal); M47.816 Spondylosis without myelopathy or radiculopathy, lumbar region | CPT/HCPCS: 72100; 73521 ==

== ENCOUNTER 2024-10-25 13:57 | Outpatient (AMB) | payer OTHER, SELFPAY ==
--- NOTE | 2024-10-25 14:08 | A.OFFVIS_ITS ---
Vital Signs 10/25/24 14:14 Height 4 ft 9 in Weight 150 lb 2 oz BMI 32.5 BP 120/72 Blood Pressure Location Lt brachial Position Sitting Pulse 68 Pulse Source Pulse Oximeter Pulse Oximetry (%) 96 Oxygen Delivery Method Room Air Intake Visit Reasons: Hip/back pain Intake Note: Pain today 11/30 Campus Chaplain Required: Yes Campus Chaplain Language: [employer] Technician Services: Campus Chaplain Present Campus Chaplain Name: Radha Luna Information Interpreted: non-clinical & clinical Accompanied by: Self / Same As Patient Allergies tramadol [TRAMADOL] Allergy (Unknown, Verified 10/25/24 14:12) NAUSEA & VOMITING, nausea and vomiting codeine [CODEINE] Adverse Reaction (Severe, Verified 10/25/24 14:12) NAUSEA & VOMITING Codeine Sulfate Allergy (Unknown, Uncoded 06/28/24 14:13) stomach upset HPI Comments Details: The patient is a 64-year-old Jordanian speaking female presenting with chronic low back pain, hip, and groin pain. The low back pain has been chronic and longstanding issue for her, while the hip and groin pain are newer issues, worse on the right side. The patient reports that these pains intensify with walking, prolonged sitting or standing and navigating stairs, particularly due to the incline. The pain extends from right buttock and groin down to the knee. The patient denies any previous back surgeries and mentions having received back in jections many years ago. Currently, she is not a candidate for steroid injections due to her osteoporosis. She is on alendronate and calcium with vitamin D3 with repeat bone scan in 2 years. She experiences degenerative joint disease and osteoarthritis primarily in the lower back, hips, and has significant pain with sacroiliac provocative testing. Additionally, [id number]-[id number] head movements induce a cracking sensation in her neck and shoulders. The patient has received previous physical therapy interventions, with limited details on outcomes. She has a history of fibromyalgia and multiple pregnancies (8 pregnancies, 6 live births), as well as a past gallbladder removal and tubal ligation. She has no known substance use and describes a bothersome exposure to secondhand smoke and marijuana from a neighbor. - Onset and Timing: Chronic low back pain existing for an extended period; new right hip and groin pain. - Quality and Character: Pain described as worse when walking and climb stairs with an incline. - Primary Location: Low back, bilateral hips, groin, and extending to knees. - Radiation: Pain radiates from groin to knees. - Exacerbating Factors: Walking, using stairs. - Relieving Factors: Not specifically noted. - Interference: Walking, managing stairs, bending movements. - Affect: Pain affecting functional activities such as walking and climbing stairs; potential psychological or emotional impact not discussed. - Analgesia: Previous use of unspecified muscle relaxers; no current prescriptions due to lack of refills. - Adverse Effects: None reported from past muscle relaxant use. - Activities of Daily Living: Difficulties with walking and stairs; managed home and daily activities mentioning the second-floor accommodation. - Aberrant Drug Related Behaviors: None reported. [facility] Medical History (Updated 10/25/24 @ 14:53 by KENYATTA Delgado) Lumbar degenerative disc disease Sacroiliac joint pain Vulvar leukoplakia Osteoporosis HLD (hyperlipidemia) Vertigo GERD (gastroesophageal reflux disease) Hepatic steatosis COPD (chronic obstructive pulmonary disease) Allergic rhinitis Asthma Depression Anxiety Fibromyalgia Hypothyroidism Surgical History Hx of cholecystectomy Hx of tubal ligation Family History Mother Asthma Brother HTN (hypertension) Son HTN (hypertension) Social History Household Members: Spouse Housing: Apartment Alcohol intake: never Patient Tobacco Use Status: Never used Tobacco Current occupational status: unemployed Sexual orientation: Straight/Heterosexual Gender identity: Female Review of Systems Const Details: - Musculoskeletal: Reports chronic back pain, new onset of hip and groin pain. - Neurological: Reports cracking sensation in neck and shoulder movements. - Genitourinary: Reports urge to urinate associated with right groin pain. - Constitutional: Denies smoking or alcohol use. All systems reviewed & are unremarkable except as noted in HPI and below Physical Exam Vital Signs: Last Vital Signs Pulse 68 10/25/24 14:14 BP 120/72 10/25/24 14:14 Pulse Ox 96 10/25/24 14:14 Oxygen Delivery Method Room Air 10/25/24 14:14 BMI result Body Mass Index 32.5 General: Appears afebrile. Alert and oriented. Mood and affect appropriate. Follows and participates in conversation appropriately. Respiratory effort is unlabored. No cough. Multiple widespread TTPs bilaterally, including upper and lower extremities.? Able to transition from sit to stand unassisted. Ambulates with bilaterally normal heel strike and toe off. General: Yes no CVA tenderness Back/Spine/Pelvis Other: Limited lumbar ROM due to pain. Antalgic gait, with mild limping. Lumbar flexion and bending reproduce mild pain, lumbar extension and axial rotation reproduce mild to moderate pain. Demonstrates 5/5 strength of quadriceps bilaterally as well as flexion/dorsiflexion of bilateral feet against resistance. 2+ pedal pulses bilaterally. Straight leg rise with dorsiflexion negative bilaterally. +2 patellar and achilles reflexes bilaterally. Facet loading test positive bilaterally. Alysha sign, Simeon?s, Gaenslen, Pelvic compression and Stinchfield tests are positive bilaterally, worse on the right. No groin pain with I/E hip rotations. Valsalva maneuver negative. Back: no CVA tenderness Cervical Spine: cervical ROM normal, cervical muscular tenderness and No Cervical spine tenderness Thoracic/Lumbar Spine: thoracic and lumbar spine normal to inspection, No Thoracic/lumbar spine scar(s), Lasegue's sign negative, straight leg raise negative bilaterally, pain with thoraco-lumbar ROM, paraspinal muscle tenderness bilaterally, thoraco-lumbar ROM limited, No thoracic spinal tenderness and lumbar spinal tenderness (L4-S1) Pelvis: buttock tenderness on the right and no sciatic notch tenderness Sacroiliac joints: bilaterally tender to palpation Extrem General: Yes capillary refill normal, Yes no clubbing, cyanosis or edema and Yes no calf tenderness Results Reviewed Results Reviewed: Three views of the lumbar spine. 09/30/24 COMPARISON: None FINDINGS: Five sdf-zfv-abnqrze lumbar type vertebral bodies. Normal vertebral body alignment. Vertebral body heights are maintained. No evidence of acute vertebral body injury. Loss of disc space height at L4-5 and L5-S1. Small marginal osteophytes present throughout the lumbar spine. Facet joint arthrosis present within the mid to lower lumbar spine with neural foraminal narrowing most pronounced at L5-S1. Visualized portions of the bones of the pelvis appear intact. Moderate colonic stool burden. IMPRESSION: 1. No radiographic evidence of acute injury to the lumbar spine. 2. Moderate to advanced lower lumbar spondylosis most pronounced at L5-S1. AP pelvis, Two views of left and right hip. 09/30/24 COMPARISON: None FINDINGS: Pelvic ring appears maintained. Pelvic phleboliths present. Degenerative changes of the partially visualized lower lumbar spine. Right hip: Visualized portions of the proximal right femur appears intact. Right femoral head is appropriately seated in the acetabulum. No significant degenerative changes. Left hip: Visualized portions of the proximal left femur appears intact. Left femoral head is appropriately seated in the acetabulum. No significant degenerative changes. IMPRESSION: 1. No radiographic evidence of acute injury to the pelvis and bilateral hips. No significant degenerative changes of the bilateral hips. 2. Degenerative changes of the partially visualized lower lumbar spine. DEXA axial skeleton 12/24/23 IMPRESSION: Osteoporosis based on the lowest T-score value of -2.6 in the femoral neck applying World Health Organization criteria. Assessment & Plan Assessment & Plan (1) Fibromyalgia: Code(s): M79.7 - Fibromyalgia Category: Medical (2) Muscle spasm of back: Code(s): M62.830 - Muscle spasm of back Category: Medical (3) Osteoporosis: Code(s): M81.0 - Age-related osteoporosis without current pathological fracture Category: Medical (4) Lumbosacral spondylosis: Code(s): M47.817 - Spondylosis without myelopathy or radiculopathy, lumbosacral region Category: Medical (5) Right hip pain: Code(s): M25.551 - Pain in right hip Category: Medical (6) Lumbar degenerative disc disease: Code(s): M51.369 - Other intervertebral disc degeneration, lumbar region without mention of lumbar back pain or lower extremity pain Category: Medical Plan Discussed interventional treatments for axial low back and sacroiliac joint pain today. Informational pamphlets provided on lumbar RFA, peripheral nerve stimulation with Sprint and sacroiliac joint injection. Given her osteoporosis, patient will avoid steroidal injections. Schedule diagnostic injection in the right sacroiliac joint with local and fluoroscopy. If effective, subsequent treatments such as radiofrequency ablation or nerve stimulation will be considered. If no pain relief, will consider lumbar medial branch blocks and right hip MRI. Script provided for tizanidine, side effects and precautions were discussed with patient. All questions and concerns have been answered and patient agreed with the plan. Follow up after injection and sooner as needed. Patient was informed and verbally consented to the use of an ambient scribe for clinic note documentation during this visit. Medications: New tizanidine 4 mg PO BID PRN 60 tabs 0RF muscle spasm M62.830 - Muscle spasm of back, M79.7 - Fibromyalgia Patient Instructions: - Use caution with walking and stair use; seek assistance if needed. - Position changes should be done gradually to prevent exacerbation of symptoms. - Start with half the prescribed tizanidine pill; only increase if well- tolerated. - Report any side effects, especially dizziness or unusual symptoms. - Educate yourself about procedures like radiofrequency ablation and nerve s timulation, pamphlets provided in Jordanian. - Schedule and attend follow-up appointments to monitor intervention effects. Coding Level of Care Code New Pt Level 4 (09759) Diagnoses Fibromyalgia M79.7 Muscle spasm of back M62.830 Osteoporosis M81.0 Lumbosacral spondylosis M47.817 Right hip pain M25.551 Lumbar degenerative disc disease M51.369
[2024-10-25 14:14] VITALS: BP 120/72; PULSE 68; O2SAT 96; BMI 32.5
--- OUTSIDE RECORDS SUMMARY | 2024-10-25 15:36 | XMS_ITS | Encounter Summary ---
Author Organization [employer] Address [address] [place] [address] Care Team Providers Care Equipment Engineer Name Role Phone Alta Martinez [facility] Primary Care Provider [phone] Luíca Nixon MD Primary Care Pro vider Reason for Visit * Reason Onset Date Comments call back 07/29/2022 Encounter Details Date Type Department Care Team (Late st Contact Info) Description 07/29/2022 Telephone [facility] [address] [place] [address] Alta Martinez [address] Dept [place] [address] call back Social History Tobacco Use Types [...] Care Team (Late st Contact Info) Description 11/18/2024 1:30 PM EDT Clinical Support [address] [phone] 12/03/2024 1:15 PM EDT Office Visit [address] [address] Lucía Nixon MD [address] [place] [phone] documented as of this encounter Visit Diagnoses Not on filedocumented in this encounter Care Teams Equipment Engineer Relationship Specialty Start Date End Date Alta Martinez FNP PCP - General Family Medicine 02/14/22 12/29/22 Lucía Nixon MD [address] [place] [phone] PCP - General Internal Medicine 12/30/22 documented as of this encounter
--- OUTSIDE RECORDS SUMMARY | 2024-10-25 15:36 | XMS_ITS | Encounter Summary ---
Author Organization [employer] Address [address] [facility] [address] [place] [address] Care Team Providers Care Fire Equipment Operator Name Role Phone Lucía Nixon MD Primary Care Pro vider Encounter Details Date Type Department Care Team ([facility] Contact Info) Description 01/01/2023 Abstract [facility] [address] [place] [phone] Lucía Nixon MD [address] [place], [place] [phone] Social History Tobacco Use Types Packs/Day Years [...] Department Care Team (Late Contact Info) Description 11/18/2024 1:30 PM EDT Clinical Support [facility] [address] [place] [phone] 12/03/2024 1:15 PM EDT Office Visit [facility] [address] [place] [address] Lucía Nixon MD [address] [place] [address] documented as of this encounter Procedures Procedure Name Priority Date/Time Associated Diagnosis Comments PAP/HPV Routine 10/09/2018 12:00 AM EDT documented in this encounter Results * Hm Pap Smear (10/09/2018 12:00 AM EDT) us Historical Provider HEALTH MAINTENANCE Final Result [facility] [address] [place] [phone] documented in this encounter Visit Diagnoses Not on filedocumented in this encounter Additional Health Concerns Assessment Noted Time PHQ-9 Depression Total Score: 0 11/30/19 23 2:40 PM EDT documented as of this encounter Care Teams Fire Equipment Operator Relationship Specialty Start Date End Date Lucía Nixon MD [address] [place] [address] PCP - General Internal Medicine 12/30/22 documented as of this encounter
--- OUTSIDE RECORDS SUMMARY | 2024-10-25 15:36 | XMS_ITS | Encounter Summary ---
Author Organization [employer] Address [address] [facility] [address] [place] [address] Care Team Providers Care Coffee Shop Attendant Name Role Phone Lucía Nixon MD Primary Care Pro vider Encounter Details Date Type Department Care Team (Late st Contact Info) Description 11/24/2023 Orders Only [facility] [address] [place] [address] ProviderAmairani MD Social History Tobacco Use Types [...] Description 11/18/2024 1:30 PM EDT Clinical Support [facility] [address] [place] [phone] 12/03/2024 1:15 PM EDT Office Visit [address] [address] Lucía Nixon MD [address] [place] [phone] documented as of this encounter Procedures Procedure Name Priority Date/Time Associated Diagnosis Comments HM COLONOSCOPY Routine 02/26/2019 12:21 PM EDT documented in this encounter Results * Hm Colonoscopy (02/26/2019 12:21 PM EDT) us Historical Provider HEALTH MAINTENANCE Final Result documented in this encounter Visit Diagnoses Not on filedocumented in this encounter Additional Health Concerns Assessment Noted Time PHQ-9 Depression Total Score: 0 11/30/19 2:40 PM EDT documented as of this encounter Care Teams Coffee Shop Attendant Relationship Specialty Start Date End Date Lucía Nixon MD [address] [place] [phone] PCP - General Internal Medicine 12/30/22 documented as of this encounter
--- OUTSIDE RECORDS SUMMARY | 2024-10-25 15:36 | XMS_ITS | Clinical Summary ---
Author Organization [facility] Address [address] [place] [place] [address] Phone Care Team Providers Care Dairy Equipment Specialist Name Role Phone Dave JimP-Karin Primary Care [...] levothyroxine (SYNTHROID, LEVOTHROID) 75 MCG tablet TOME ARIANA TABLETA TODOS LOS D 1 Active Cholecalciferol [...] 2007 Pneumococcal Vaccine: 50+ Ye ars (1 of - PCV) 2008 Influenza Vaccine (Season Ended) 2025 Hepatitis B Vaccine Aged Out No longe r eligible based on patient's age to complete this topic Insurance Medicaid [place] Member Subscriber Plan / Payer (Ef fective 2020-Present) Name:Cheli Wilks Relation to Subscriber:Self Name:Cheli Wilks Payer ID:Not on file Group ID:Not on file Type:Not on file Address: [place] [id number] Medicaid [place] Member Subscriber Plan / Payer (Ef fective 2020-Present) Name:Cheli Wilks Relation to Subscriber:Self Name:Cheli Wilks Payer ID:Not on file Group ID:Not on file Type:Not on file Address: [place] [id number] Care Teams Dairy Equipment Specialist Relationship Specialty Start Date End Date Dave Jim, MD [id number] PCP - General Nurse Practitioner 09/07/20
--- OUTSIDE RECORDS SUMMARY | 2024-10-25 15:36 | XMS_ITS | Clinical Summary ---
Author Organization [employer] Address [address] [facility] 7t [place] [address] Care Team Providers Care Aligning Inspector Name Role Phone Lucía Nixon MD Primary Care Pro vider Allergies Active Allergy Reactions Criticality Noted Date Comments Codeine Other 07/16/2022 GI side effects Menthol 12/03/2023 Tramadol Dizziness 11/12/2013 Medications Blood Pressure Monitoring (Omron 3 Series BP Monitor) device USE TO CHECK BLOOD PRESSURE ONCE DAILY DIRECTED 01/16/20 22 Active Diclofenac Sodium 1 % gelIndications :Chronic bilateral low back pain with bilateral sciatica [...] 60 tablet 11 01/20/20 24 025 Active Fluticasone-Sa lmeterol (Wixela Inhub) 500-50 MCG/ACT aerosol powder Inhale 1 puff at noon and 1 puff in the evening. 1 each 2 04/09/20 24 Active levothyroxine (Synthroid, Levoxyl) 75 MCG [...] 026 Active omeprazole (PriLOSEC) [address] capsuleIndicat ions:Gastroeso phageal reflux disease, unspecified whether esophagitis present TAKE [...] 120 capsule 3 09/28/19 25 026 Active cholecalcifero l (Vitamin D-3) 50 MCG (1999) tabletIndicati ons:Vitamin D deficiency TOME ARIANA TABLETA TODOS LOS D 90 tablet 1 09/28/19 25 Active lidocaine (Lidoderm) 5 % patchIndicatio ns:Muscle spasm Apply topically to affected areas. Leave on for up to 12 hours 30 patch 1 09/28/19 25 Active loratadine (Claritin) 10 MG tablet TAKE 1 TABLET BY MOUTH EVERY DAY NEEDED 90 tablet 1 10/07/19 25 Active clobetasol (Temovate) 0.05 % cream USE 1 APPL TOPICALLY 2 TIMES A DAY FOR 5 DAYS THEN MAINTENANCE THERAPY FOR 2-3 TIMES PER WEEK 09/14/19 25 Active Wixela Inhub 250-50 MCG/ACT aerosol powder TAKE 1 PUFF BY MOUTH TWICE A DAY FOR ASTHMA/COPD 09/30/19 25 Active cholecalcifero l (Vitamin D-3) 50 MCG (1999) tabletIndicati ons:Vitamin D deficiency TOME ARIANA TABLETA TODOS LOS D 90 tablet 3 09/06/19 23 025 Discontinued(R eorder (will not trigger notification to Pharmacy)) meclizine (Antivert) 25 MG tablet TAKE 1 TABLET BY MOUTH 3 TIMES A DAY NEEDED FOR DIZZINESS 30 tablet 11 08/22/19 24 025 Discontinued(O ther) cyclobenzaprin e (Flexeril) 5 MG tabletIndicati ons:Muscle spasm Take 1 tablet (5 mg) by mouth if needed in the morning, at noon, and at bedtime for muscle spasms. 10 tablet 04/09/20 24 025 Discontinued(O ther) lidocaine (Lidoderm) 5 % patchIndicatio ns:Muscle spasm Apply topically to affected areas. Leave on for up to 12 hours 30 patch 1 04/09/20 24 025 Discontinued(R eorder (will not trigger notification to Pharmacy)) loratadine (Claritin) 10 MG tablet TAKE 1 TABLET BY MOUTH EVERY DAY NEEDED 90 tablet 1 04/12/20 24 025 Discontinued ibuprofen 400 MG tabletIndicati ons:Muscle spasm TAKE 1 TABLET (400 MG) BY MOUTH EVERY 6 (SIX) HOURS IF NEEDED FOR MODERATE PAIN. 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 Overview (03/23/2024): Established w/ [facility], plan for biopsy per 03/23/24 WET M[facility]ER note Allergic rhinitis 01/20/2024 Osteoporosis 01/20/2024 Lower extremity edema 01/20/2024 Obesity (BMI 30-39.9) 12/03/2023 Insomnia 12/03/2023 Chronic right-sided low back pain without sciati ca 12/03/2023 Right shoulder pain 12/03/2023 Hepatic steatosis 12/01/2022 Overview (12/01/2022): Present on US on 09/19/22 Stress incontinence of urine 12/01/2022 Overview (12/30/2022): Recommend david Pt states she is happy to use [...] EST): BV swab from last week at [facility] reviewed showed Gardnerella Vaginalis Given that patient [...] Encounters Date Type Department Care Team Description 10/06/2024 Refill [facility] [address] [place] [address] Lucía Nixon MD 10/05/2024 1:00 PM EDT Office Visit [facility] [address] [place] [address] Papi, Lilliam, OD PCO (posterior capsular opacification), bilateral (Primary Dx); Dry eyes 10/05/2024 Travel 10/01/2024 Orders Only [facility] [address] [place] [address] Lucía Nixon MD Bilateral hip pain (Primary Dx); Chronic low back pain without sciatica, unspecified back pain laterality 10/01/[address] [address] Lucía Nixon MD Results 09/27/2024 1:45 PM EDT Office Visit [facility] [address] [place] [address] Lucía Nixon MD Chronic low back pain without sciatica, unspecified back pain laterality (Primary Dx); Vitamin D deficiency; Muscle spasm; Bilateral hip pain; Dietary counseling; Exercise counseling; Chronic obstructive pulmonary disease, unspecified COPD type (CMS/HCC); Health care maintenance; Chronic right-sided low back pain without sciatica; Obesity (BMI 30-39.9); Acquired hypothyroidism; Osteoporosis, unspecified osteoporosis type, unspecified pathological fracture presence; Poor memory 09/27/[address] [phone] Lucía Nixon MD Appointment Request 09/27/2024 Travel 09/16/2024 Telephone [facility] [address] [place] [phone] Jojo Stevens, ANP DME from [facility] 09/15/[address] [place] [address] Jojo Stevens ANP DME from Home care 09/14/2024 Telephone [facility] [address] [place] [address] Lucía Nixon MD chart prep 08/24/2024 Refill [facility] [address] [place], [place] [phone] Lucía Nixon MD Hypertriglyceridemia 08/22/2024 Refill [facility] [address] [place], [place] [phone] Lucía Nixon MD Gastroesophageal reflux disease, unspecified whether esophagitis present 08/17/2024 Telephone [facility] [address] [place], [place] [phone] Lucía Nixon MD Durable Medical Equipment from Last 3 Months Immunizations Name Administration [...] your housing situation today? I have sulma sing 04/17/[address] you li [...] Description 11/18/2024 1:30 PM EDT Clinical Support [facility] [address] [place] [address] 12/03/2024 1:15 PM EDT Office Visit [facility] [address] [place], [place] [phone] Lucía Nixon MD [address] [place] [address] Health Maintenance Due Date Last Done Comments CT Colonography 1960 FIT DNA/Cologuard 1960 FIT 1960 FOBT 1960 Sigmoidoscopy 1960 Hepatitis A Vaccines (1 of 2 - Risk 2-dose series) 1977 Hepatitis B Vaccines (1 of 3 - Risk 3-dose series) 2018 RSV Patients and Patients Aged 60 years or older (1 - Risk 60-74 years 1-dose series) 2018 COVID-19 Vaccine ( season) 2024 Influenza Vaccine (#1) 2024 , 04/09/2019, 06/04/2018, Additional history exists SDOH Screening 11/23/2024 11/24/2023 Depression Screening 12/02/2024 12/03/2023, 12/03/19 24 Mammogram 06/14/2025 06/14/2024, 02/06/2023, 06/13/2023, Additional history exists Alcohol/Substance Use Screening 09/27/2025 09/27/2024 Tobacco Screening 10/08/2025 10/08/2024 HPV/Cotest 07/16/2028 Pap Smear 07/16/2028 07/16/2023, 10/09/2018 [...] Procedure Name Priority Date/Time Associated Diagnosis Comments AMB REFERRAL TO OPHTHALMOLOGY Routine 10/25/2024 PCO (posterior capsular opacification), bilateral XR LUMBAR SPINE 2-3 VIEWS Routine 09/30/2024 8:57 PM EDT Chronic low back pain without sciatica, unspecified back pain laterality XR HIP BILATERAL WITH PELVIS 1 VIEW Routine 09/30/2024 8:56 PM EDT Bilateral hip pain BI MAMMOGRAM SCREENING TOMOSYNTHESIS BILATERAL Routine 06/14/2024 [...] Recently Relevant to Health Maintenance Results * Referral to Ophthalmology (10/25/2024) us Lilliam Turpin OD OUTPATIENT REFERRAL ORDERABLE S Final Result * XR Lumbar Spine 2-3 Views (09/30/2024 8:57 PM EDT) Anatomical Region Laterality Modality Spine, L-spine Radiographic Asya ging 09/30/2024 8:57 PM EDT Narrative 09/30/2024 8:57 PM EDT ? [facility] ?[address] ?[place] [address] ?XRay Report ? Signed ? Patient: Efe,Cheli ?MR#: [id number] ?? 971 ? : 1960 ?Acct:[id number] ? Age/Sex: 64 / F ?ADM Date: 09/30/24 ? Loc: HO.XRAY ? Attending Dr: Lucía Good MD ? Ordering Physician: Lucía Nixon MD ?? Date of Service: 09/30/24 ?? Procedure(s): XR lumbar spine 2-3V ?? Accession Number(s): [id number] ? cc: Lucía Nixon MD ? CLINICAL HISTORY: LOW BACK PAIN ? Three views of the lumbar spine. ? COMPARISON: None ? FINDINGS: ?? Five eig-wrc-fxijwgx lumbar type vertebral bodies. ?? Normal vertebral body alignment. ?? Vertebral body heights are maintained. No evidence of acute vertebral body ?? injury. ?? Loss of disc space height at L4-5 and L5-S1. Small marginal osteophytes ?? present throughout the lumbar spine. Facet joint arthrosis present within ?? the mid to lower lumbar spine with neural foraminal narrowing most ?? pronounced at L5-S1. ? Visualized portions of the bones of the pelvis appear intact. Moderate ?? colonic stool burden. ? IMPRESSION: ?? 1. No radiographic evidence of acute injury to the lumbar spine. ?? 2. Moderate to advanced lower lumbar spondylosis most pronounced at L5-S1. ? This document has been electronically signed by: Luis Armando Medina MD on ?? 09/30/2024 20:57:12 ? Dictated By: ?Luis Armando Medina MD ? Signed By: ?<Electronically signed by Luis Armando Medina MD in OV> ?09/30/242056 ? DD/ 56 ? TD/TT: 09/30/242056 ? [employer]ic: ? Procedure Note Maritza Peterson - 09/30/2024 [facility] [address] [place] [address] XRay Report Signed Patient: Edy Wilks#: [id number] 971 : 8Acct:[id number] Age/Sex: 64 / FADM Date: 09/30/24 Loc: HO.DUDLEYAY Attending Dr: Lucía Good MD Ordering Physician: Lucía Nixon MD Date of Service: 09/30/24 Procedure(s): XR lumbar spine 2-3V Accession Number(s): [id number] cc: Lucía Nixon MD CLINICAL HISTORY: LOW BACK PAIN Three views of the lumbar spine. COMPARISON: None FINDINGS: Five pqa-czk-iljvmne lumbar type vertebral bodies. Normal vertebral body alignment. Vertebral body heights are maintained. No evidence of acute vertebral body injury. Loss of disc space height at L4-5 and L5-S1. Small marginal osteophytes present throughout the lumbar spine. Facet joint arthrosis present within the mid to lower lumbar spine with neural foraminal narrowing most pronounced at L5-S1. Visualized portions of the bones of the pelvis appear intact. Moderate colonic stool burden. IMPRESSION: 1. No radiographic evidence of acute injury to the lumbar spine. 2. Moderate to advanced lower lumbar spondylosis most pronounced at L5-S1. This document has been electronically signed by: Luis Armando Medina MD on 09/30/2024 20:57:12 Dictated By: Luis Armando Medina MD Signed By: <Electronically signed by Luis Armando Medina MD in OV> 09/30/242056 DD/ 56 TD/TT: 09/30/242056 [employer] Engine Mechanic: Lucía Good MD IMG XR PROCEDURES Edited Result - Final * XR Hips Bilateral with Pelvis 1 view (09/30/2024 8:56 PM EDT) Anatomical Region Laterality Modality Lower Extremities, Hip Bilateral Radiograp hic Imaging 09/30/2024 8:56 PM EDT Narrative 09/30/2024 8:57 PM EDT ? [facility] ?[address] ?[place] [address] ?XRay Report ? Signed ? Patient: Efe,Cheli ?MR#: [id number] ?? 971 ? : 1960 ?Acct:[id number] ? Age/Sex: 64 / F ?ADM Date: 04/10/25 ? Loc: HO.XRAY ? Attending Dr: Lucía Good MD ? Ordering Physician: Lucía Nixon MD ?? Date of Service: 09/30/24 ?? Procedure(s): XR hip BI w PEL1V ?? Accession Number(s): [id number] ? cc: Lucía Nixon MD ? CLINICAL HISTORY: pt with bilateral hip discomofrt with ambulation ? AP pelvis, Two views of left and right hip. ? COMPARISON: None ? FINDINGS: ?? Pelvic ring appears maintained. Pelvic phleboliths present. ?? Degenerative changes of the partially visualized lower lumbar spine. ? Right hip: ?? Visualized portions of the proximal right femur appears intact. ?? Right femoral head is appropriately seated in the acetabulum. No ?? significant degenerative changes. ? Left hip: ?? Visualized portions of the proximal left femur appears intact. ?? Left femoral head is appropriately seated in the acetabulum. No ?? significant degenerative changes. ? IMPRESSION: ?? 1. No radiographic evidence of acute injury to the pelvis and bilateral ?? hips. No significant degenerative changes of the bilateral hips. ?? 2. Degenerative changes of the partially visualized lower lumbar spine. ? This document has been electronically signed by: Luis Armando Medina MD on ?? 09/30/2024 20:56:11 ? Dictated By: ?Luis Armando Medina MD ? Signed By: ?<Electronically signed by Luis Armando Medina MD in OV> ?09/30/242056 ? DD/ 55 ? TD/TT: 09/30/242055 ? [employer]key Engine Mechanic: ? Procedure Note Nicholas, Image - 09/30/[address] [address] XRay Report Signed Patient: Edy Wilks#: [id number] 971 : 8Acct:[id number] Age/Sex: 64 / FADM Date: 09/30/24 Loc: XANDER Attending Dr: Lucía Good MD Ordering Physician: Lucía Nixon MD Date of Service: 09/30/24 Procedure(s): XR hip BI w PEL1V Accession Number(s): [id number] cc: Lucía Nixon MD CLINICAL HISTORY: pt with bilateral hip discomofrt with ambulation AP pelvis, Two views of left and right hip. COMPARISON: None FINDINGS: Pelvic ring appears maintained. Pelvic phleboliths present. Degenerative changes of the partially visualized lower lumbar spine. Right hip: Visualized portions of the proximal right femur appears intact. Right femoral head is appropriately seated in the acetabulum. No significant degenerative changes. Left hip: Visualized portions of the proximal left femur appears intact. Left femoral head is appropriately seated in the acetabulum. No significant degenerative changes. IMPRESSION: 1. No radiographic evidence of acute injury to the pelvis and bilateral hips. No significant degenerative changes of the bilateral hips. 2. Degenerative changes of the partially visualized lower lumbar spine. This document has been electronically signed by: Luis Armando Medina MD on 09/30/2024 20:56:11 Dictated By: Luis Armando Medina MD Signed By: <Electronically signed by Luis Armando Medina MD in OV> 09/30/242056 DD/ 55 TD/TT: 09/30/242055 [employer] Engine Mechanic: Lucía Good MD IMG XR PROCEDURES Edited Result - Final * BI Mammogram Screening Tomosynthesis Bilateral (06/14/2024 2:30 PM EST) Anatomical Region Laterality Modality Breast Bilateral Mammography 06/14/2024 2:30 PM EST Narrative 06/28/2024 1:33 PM EST ? [facility] ? [address] [facility] ?[place] [address] ? Mammography Report ? Signed ? Patient: Efe,Cheli ?MR#: [id number] ?? 971 ? : 1960 ?Acct:[id number] ? Age/Sex: 63 / F ?ADM Date: 12/23/24 ? Loc: HO.MAMMO ? Attending Dr: Lucía Good MD ? Ordering Physician: Lucía Nixon MD ?Re ?? sults: 1Negative ? Date of Service: 06/14/24 ?Follow Up: 1 Year From Orig ?? inal Mammogram ? Procedure(s): MM tomosynthesis screening BI ?? Accession Number(s): [id number] ? cc: Lucía Nixon MD ? EXAMINATION: [...] DD/ 1430 ? TD/TT: 06/14/24 1450 ? [employer] Mechanic: ? Procedure Note Donotuseinterpreter, Image - 06/28/2024 [place] [facility] [address] [place] [address] Mammography Report Signed Patient: Teresa WilksR#: [id number] 971 : 1960cct:[id number] Age/Sex: 63 / FADM Date: 06/14/24 Loc: HO.MAMMO Attending Dr: Lucía Good MD Ordering Physician: Lucía Nixon sults: 1Negative Date of Service: 06/14/24Follow Up: 1 Year From Orig inal Mammogram Procedure(s): MM tomosynthesis screening BI Accession Number(s): [id number] cc: Lucía Nixon MD EXAMINATION: MM SCREENING [...] by: Kaykay Fernandez DO 06/28/2024 01:30 PM [facility] Dictated By: Kaykay Fernandez DO Signed By: <Electronically signed by Kaykay Fernandez DO in OV> 06/28/24 1330 DD/ 1430 TD/TT: 06/14/24 1450 [employer] Mechanic: us Lucía Good MD IMG BI PROCEDURES Edited Result - Final * Lipid Panel, Standard (01/15/2024 8:56 AM EDT) Triglycerides 79 <150 mg/dL [facility] Comment:Desirable Triglyceri de: less than 150 mg/dLBorderline High Triglyceride 150-199 mg/dLHigh Triglyceride: 200-499 mg/dLVery High Triglyceride: greater than or equal to 5OO mg/dL Cholesterol 162 <200 mg/dL [facility] Comment:Desirable Cholestero l: less than 200 mg/dLBorderline High Cholesterol: 200-239 mg/dLHigh Cholesterol: greater than 239 mg/dL LDL Cholesterol Calculated 98 <100 mg/dL [facility] Comment:Desirable LDL: less than 100 mg/dLNear Optimal/Above Optimal LDL: 110- 129 mg/dLBorderline High LDL: 130-159 mg/dLHigh LDL: 160-189 mg/dLVery High LDL: greater than or equal to 190 mg/dL HDL Cholesterol 49 >40 mg/dL [facility] Comment:Desirable HDL: great er than 40 mg/dL Note: This HDL assay may give artificially low results in patients with liver disease. Blood Venous blood specimen / Unknown 01/15/2024 8:56 AM EDT 01/15/2024 11:14 AM EDT us Lucía Good MD LAB BLOOD ORDERAB LES Final Result [facility] [address] [place] [phone] * Hepatitis C Antibody with Reflex to HCV, RNA, Quantitative, Real-Time PCR (01/15/2024 8:46 AM EDT) Hepatitis C Antibody Nonreactive Nonreactive [facility] Comment:Antibodies to HCV no t detected; does not exclude early acuteHCV infection. Blood Venous blood specimen / Unknown 01/15/2024 8:46 AM EDT 01/15/2024 11:14 AM EDT us Lucía Good MD LAB BLOOD ORDERAB LES Final Result Performing Organization Address City/State/[facility] Co de Phone Number [facility] [address] [place] [phone] * Pap Smear (07/16/2023 3:14 PM EST) 07/16/2023 3:14 PM EST 07/17/2023 8:00 AM EST Narrative [facility] - 08/01/2023 3:14 PM EST ----- ------- Name: Cheli Wilks ?Age/Sex: 63/F ? : 1960 Unit#: [id number] ?? Attend Dr: Kanwal Horta CNM ?Re07/16/23 ?Status: DEP REF ? Location: HO.LNP ?Disch: ? ----- ------- SPEC : [id number] ? RECD: 07/17/23 ? STATUS: ??SOUT ? REQ NUM: [id number] ? SHIRA: 07/16/23-151 ? SUBM DR: Kanwal HortaM ? ENTERED: ??07/17/23 ?SP TYPE: Pap Smr ?OTHR DR: Alta Martinez C[facility] RECEPTIONIST ? ORDERED: ??Pap Smear ? Interpretation ?? Satisfactory for evaluation. ?? Negative for intraepithelial lesion or malignancy. ?HPV mRNA E6/E7: ?NOT DETECTED ? This assay detects E6/E7 viral messenger RNA (mRNA) from 14 high-risk HPV types (16, 18, ?? 31, 33, 35, 39, 45, 51, 52, 56, 58, 59, 66, 68) ?? HPV testing performed by [facility], [place], [place]. ??See reference laboratory ?? portion of the EMR for entire report. ?Clinical Information LMP: Postmenopausal Previous PAP test: 2019, WNL ? Material Received ?? ThinPrep-Cervical Copies To: ?? Kanwal Horta CNM ?? [address] ?? [place] [address] ?? [phone] ?? Alta Martinez C[facility] RECEPTIONIST ?? [address] ?? [place] [address] ?? [phone] ----- ------- Signed (signature on file) ZAIN Ochoa ([facility]) 08/01/23 1514 ? ----- ------- ? END OF REPORT ? us Generic External Data Provider LAB CYTOLOGY CJ ALEXANDER Final Result [facility] [address] [place], [place] [phone] * Hm Colonoscopy (02/26/2019 12:21 PM EDT) Historical Provider HEALTH MAINTENANCE Final Result from Last 3 Months or Most Recently Relevant to Health Maintenance Insurance [facility] JAIL OPTIONS (HMO D-SNP) [facility] JAIL OPTIONS (HMO D-SNP) Care Teams Aligning Inspector Relationship Specialty Start Date End Date Lucía Nixon MD [address] [place] [phone] PCP - General Internal Medicine 12/30/22
== END 2024-10-25 14:38 | disposition home or self-care (01) ==
LOC: HO.PMC 13:58
PROVIDERS: PCP Student in an Organized Health Care Education/Training Program; Referring Provider Student in an Organized Health Care Education/Training Program; Visit Provider Nurse Practitioner Family
DX: M79.7 Fibromyalgia (principal); M62.830 Muscle spasm of back; M81.0 Age-related osteoporosis without current pathological fracture; M47.817 Spondylosis without myelopathy or radiculopathy, lumbosacral region; M25.551 Pain in right hip; M51.369 Other intervertebral disc degeneration, lumbar region without mention of lumbar back pain or lower extremity pain
CPT/HCPCS: 99204

== ENCOUNTER → 2024-10-25 13:57 | Outpatient (BNVA) | payer OTHER, SELFPAY | PROVIDERS: PCP Student in an Organized Health Care Education/Training Program; Referring Provider Student in an Organized Health Care Education/Training Program; Visit Provider Nurse Practitioner Family | DX: M79.7 Fibromyalgia (principal); M62.830 Muscle spasm of back; M81.0 Age-related osteoporosis without current pathological fracture; M47.817 Spondylosis without myelopathy or radiculopathy, lumbosacral region; M25.551 Pain in right hip; M51.369 Other intervertebral disc degeneration, lumbar region without mention of lumbar back pain or lower extremity pain | CPT/HCPCS: 99202 ==

== ENCOUNTER 2024-12-03 14:21 | Outpatient (REF) | payer OTHER, SELFPAY ==
--- NOTE | ~2024-12-03 | XR_ITS ---
EXAMINATION: XR CERVICAL SPINE CLINICAL INFORMATION: PAIN COMPARISON: November 27, 2018 TECHNIQUE: 3 views of the cervical spine were obtained. FINDINGS: Prevertebral soft tissues appear similar to the prior study. Straightening of cervical lordosis is noted. Dens is obscured by overlapping bone and teeth. C2-3 demonstrates mild disc space narrowing and subtle retrolisthesis. C4-5 demonstrates moderate disc space narrowing and increasing endplate sclerosis with osteophytes and grade 1 retrolisthesis. C5-6 demonstrates grade 1 retrolisthesis with moderate loss of disc height and endplate osteophytes, stable Chronic calcification is present at the inferior tip of C7 spinous process. XR/XR cervical spine 3V IMPRESSION: Degenerative disc disease has increased since prior examination. Electronically signed by: David Emery MD 12/03/2024 02:51 PM EDT
--- OUTSIDE RECORDS SUMMARY | 2024-12-03 14:23 | XMS_ITS | Encounter Summary ---
Author Organization [employer] Address [address] [facility] 7 [place] [address] Care Team Providers Care Product Steward Name Role Phone Alta Martinez [facility] Primary Care Provider [phone] Lucía Nixon MD Primary Care Pro vider Reason for Visit * Reason Onset Date Comments call back 07/29/2022 Encounter Details Date Type Department Care Team ([facility] st Contact Info) Description 07/29/2022 Telephone [facility] [address] [place] [address] Alta Martinez [address] Dept [place] [address] call back Social History Tobacco Use Types [...] Care Team (Late st Contact Info) Description 02/18/2025 1:15 PM EDT Office Visit [facility] [address] [place] [address] Lucía Nixon MD [address] [place], [place] [phone] documented as of this encounter Visit Diagnoses Not on filedocumented in this encounter Care Teams Product Steward Relationship Specialty Start Date End Date Alta Martinez FNP PCP - General Family Medicine 02/14/22 12/29/22 Lucía Nixon MD [address] [place] [phone] PCP - General Internal Medicine 12/30/22 documented as of this encounter
== END 2024-12-03 14:22 | disposition home or self-care (01) ==
LOC: HO.HHCX 14:21
PROVIDERS: Visit Provider Internal Medicine
DX: M54.2 Cervicalgia (principal)
CPT/HCPCS: 72040

== ENCOUNTER → 2024-12-03 14:23 | Outpatient (BNV) | payer OTHER, SELFPAY | PROVIDERS: Visit Provider Radiology Diagnostic Radiology | DX: M50.30 Other cervical disc degeneration, unspecified cervical region (principal) | CPT/HCPCS: 72040 ==

== ENCOUNTER 2024-12-21 06:50 | Outpatient (REF) | payer OTHER, SELFPAY ==
--- NOTE | ~2024-12-21 | FL_ITS ---
EXAMINATION: FL GUIDANCE ONLY HISTORY: M53.3 - Sacrococcygeal disorders, not elsewhere classified COMPARISON: None available. TECHNIQUE: Fluoroscopy time: 0.1 minutes. Cumulative Dose: 1.18 mGy. DAP: 0.0206 mGym2 Images: 3. FINDINGS: Fluoroscopic spot films of the right hemipelvis demonstrate a needle and contrast material in the region of the right sacroiliac joint. FL/FL guidance in treatment room IMPRESSION: Fluoroscopy during procedure. Please see procedure report for additional information. Electronically signed by: Jorge Luis Vergara MD 12/21/2024 03:22 PM EDT
--- OUTSIDE RECORDS SUMMARY | 2024-12-21 06:52 | XMS_ITS | Encounter Summary ---
Author Organization [employer] Address [address] [facility] 7 [place] [address] Care Team Providers Care Clinical Esthetician Name Role Phone Alta Martinez [facility] Primary Care Provider [phone]- [phone] Lucía Nixon MD Primary Care Pro vider Reason for Visit * Reason Onset Date Comments call back 07/29/2022 Encounter Details Date Type Department Care Team ([facility] st Contact Info) Description 07/29/[address] [facility] [address] [place] [address] Alta Martinez [address] Dept [place] [address] call back Social History Tobacco Use Types [...] Description 02/18/2025 1:15 PM EDT Office Visit [facility] [address] [place] [address] Lucía Nixon MD [address] [place], [place] [phone] documented as of this encounter Visit Diagnoses Not on filedocumented in this encounter Care Teams Clinical Esthetician Relationship Specialty Start Date End Date Alta Martinez FNP PCP - General Family Medicine 02/14/22 12/29/22 Lucía Nixon MD [address] [place] [phone] PCP - General Internal Medicine 12/30/22 documented as of this encounter
--- OUTSIDE RECORDS SUMMARY | 2024-12-21 06:52 | XMS_ITS | Clinical Summary ---
Author Organization [facility] Address [address] [place] [address] Phone Care Team Providers Care Associate Programmer Name Role Phone Dave JimP-Karin Primary Care [...] ID:Not on file Type:Not on file Address: [place] [id number] Medicaid [place] Member Subscriber Plan / Payer (Ef fective 2020-Present) Name:Cheli Wilks Relation to Subscriber:Self Name:Cheli Wilks Payer ID:Not on file Group ID:Not on file Type:Not on file Address: [place] [phone] Care Teams Associate Programmer Relationship Specialty Start Date End Date Dave Jim, [employer]-C PCP - General Nurse Practitioner 09/07/20
== END 2024-12-21 06:51 | disposition home or self-care (01) ==
LOC: CF 06:50
PROVIDERS: Visit Provider Anesthesiology
DX: M53.3 Sacrococcygeal disorders, not elsewhere classified (principal)
CPT/HCPCS: 27096; J2003; J2795; Q9967

== ENCOUNTER 2024-12-21 12:45 | Outpatient (AMB) | payer OTHER, SELFPAY ==
--- NOTE | 2024-12-21 12:53 | A.OFFVIS_ITS ---
Vital Signs 12/21/24 13:03 12/21/24 13:34 Height 4 ft 9 in Weight 150 lb BMI 32.5 BP 134/60 135/60 Blood Pressure Location Lt brachial Lt brachial Position Sitting Sitting Respiration 18 18 Pulse 80 68 Pulse Source Pulse Oximeter Pulse Oximeter Pulse Oximetry (%) 98 97 Oxygen Delivery Method Room Air Room Air Intake Visit Reasons: RIGHT DIAGNOSTIC SIJ INJECTION Cryogenic Transport Driver Required: Yes Cryogenic Transport Driver Services: Cryogenic Transport Driver Present Cryogenic Transport Driver Name: lina [id number] Information Interpreted: clinical only Allergies tramadol (TRAMADOL) Allergy (Unknown, Verified 12/21/24 13:04) NAUSEA & VOMITING, nausea and vomiting codeine (CODEINE) Adverse Reaction (Severe, Verified 12/21/24 13:04) NAUSEA & VOMITING Codeine Sulfate Allergy (Unknown, Uncoded 06/28/24 14:13) stomach upset PFSH Medical History (Updated 12/16/24 @ 13:47 by Isabela Enrique, REEL ASSEMBLER, WAGE AND SALARY ADMINISTRATOR) Lumbar degenerative disc disease Sacroiliac joint pain Vulvar leukoplakia Osteoporosis HLD (hyperlipidemia) Vertigo GERD (gastroesophageal reflux disease) Hepatic steatosis COPD (chronic obstructive pulmonary disease) Allergic rhinitis Asthma Depression Anxiety Fibromyalgia Hypothyroidism Surgical History Hx of cholecystectomy Hx of tubal ligation Family History Mother Asthma Brother HTN (hypertension) Son HTN (hypertension) Social History Household Members: Spouse Housing: Apartment Alcohol intake: never Patient Tobacco Use Status: Never used Tobacco Current occupational status: unemployed Sexual orientation: Straight/Heterosexual Gender identity: Female Physical Exam Vital Signs: Last Vital Signs Pulse 68 12/21/24 13:34 Resp 18 12/21/24 13:34 BP 135/60 12/21/24 13:34 Pulse Ox 97 12/21/24 13:34 Oxygen Delivery Method Room Air 12/21/24 13:34 BMI result Body Mass Index 32.5 Assessment & Plan Assessment & Plan (1) Fibromyalgia: Code(s): M79.7 - Fibromyalgia Category: Medical (2) Muscle spasm of back: Code(s): M62.830 - Muscle spasm of back Category: Medical (3) Osteoporosis: Code(s): M81.0 - Age-related osteoporosis without current pathological fracture Category: Medical (4) Lumbosacral spondylosis: Code(s): M47.817 - Spondylosis without myelopathy or radiculopathy, lumbosacral region Category: Medical (5) Right hip pain: Code(s): M25.551 - Pain in right hip Category: Medical (6) Lumbar degenerative disc disease: Code(s): M51.369 - Other intervertebral disc degeneration, lumbar region without mention of lumbar back pain or lower extremity pain Category: Medical Plan Right diagnostic sacroiliac joint injection Informed consent was explained thoroughly to the patient.? All questions about benefits and risks for the procedure were answered. Patient came to the operating room she was positioned prone on the operating table with the pillow under her abdomen.? Time-out was performed delineating correct site and side of the procedure name and date of of the patient. Her lower back and buttocks was prepped with ChloraPrep prepped and draped with sterile towels.C-arm was brought over the operating field and sq picture of patient's pelvis was demonstrated on the screen.? For the right joint tilting C-arm contralateral to the site of the joint of the patient the most posterior portion of the joints were superimposed of the anterior portion of the joint . Skin was injected in the projection of the joint slightly medial to the location of the joint with 25 gauge 1/2 inch needle using local lidocaine 2% mixed with ropivacaine 0.5% 1 to 1 . After that 22 gauge 3 and 1/2 inch needle was driven to the right joint in tunnel vision fashion.? When needle entered the joint capsule injection of the contrast was performed demonstrating intra-articular and minimally periarticular spread of the contrast.? After that of ropivacaine o.5 % 5 mls was injected into the joint.? Upon completion of the injections the needle was removed and pressure were applied.? Sterile dressing was applied. Orders: Orders FL guidance in treatment room Today M53.3 - Sacrococcygeal disorders, not elsewhere classified Coding Level of Care Code Procedure Only Diagnoses Fibromyalgia M79.7 Muscle spasm of back M62.830 Osteoporosis M81.0 Lumbosacral spondylosis M47.817 Right hip pain M25.551 Lumbar degenerative disc disease M51.369
[2024-12-21 13:03] VITALS: BP 134/60; PULSE 80; RESP 18; O2SAT 98; BMI 32.5
[2024-12-21 13:34] VITALS: BP 135/60; PULSE 68; RESP 18; O2SAT 97
== END 2024-12-21 13:35 | disposition home or self-care (01) ==
LOC: HO.PMCPRC 12:45
PROVIDERS: PCP Student in an Organized Health Care Education/Training Program; Visit Provider Anesthesiology
DX: M53.3 Sacrococcygeal disorders, not elsewhere classified (principal)
CPT/HCPCS: 27096

== ENCOUNTER 2024-12-23 13:04 | Outpatient (AMB) | payer OTHER, SELFPAY ==
--- NOTE | 2024-12-23 13:07 | MHC.OFFVIS ---
Vital Signs 12/23/24 13:10 Height 4 ft 9 in Weight 148 lb BMI 32.0 BP 150/68 H Blood Pressure Location Lt brachial Position Sitting Pulse 80 Pulse Source Pulse Oximeter Pulse Oximetry (%) 95 Oxygen Delivery Method Room Air Intake Visit Reasons: RIGHT DIAGNOSTIC SIJ INJECTION Intake Note: Pain today 10/30 Optical Instrument Specialist Required: Yes Optical Instrument Specialist Language: Medical Data Analyst Services: Optical Instrument Specialist Offered & Declined Optical Instrument Specialist Name: UJ Pérez #[id number] Information Interpreted: non-clinical & clinical Accompanied by: PAPER TESTING SUPERVISOR Allergies tramadol (TRAMADOL) Allergy (Unknown, Verified 12/23/24 13:11) NAUSEA & VOMITING, nausea and vomiting codeine (CODEINE) Adverse Reaction (Severe, Verified 12/23/24 13:11) NAUSEA & VOMITING Codeine Sulfate Allergy (Unknown, Uncoded 06/28/24 14:13) stomach upset HPI Comments Details: The patient is a 64-year-old female presenting with follow-up after a recent diagnostic sacroiliac joint injection. Patient reports 50% pain relief for 6 hours with partial improvement in her daily activities, mobility, and sleep. The patient reports chronic right hip pain, which has been persistent and affects her daily activities. The pain radiates to the right groin and occasionally reflects on the ribs. She denies any recent trauma or incidents that could have exacerbated the rib pain. The patient has a history of osteoporosis, which limits the treatment options available for her pain management. Due to osteoporosis, steroid injections in the hip, sacroiliac joint, or back are not recommended. We reviewed diagnostic lumbar medial branch blocks to address axial low back pain for potential peripheral nerve stimulation or RFA procedures for sustained pain relief. Patient is hesitant to proceed with any interventional treatments at this time. Additionally, the patient has fibromyalgia, contributing to her heightened sensitivity to pain and discomfort. Past Procedures: 12/21/24: Right diagnostic SIJ injection -50% pain relief for 6 hours PRIOR: The patient is a 64-year-old Czech speaking female presenting with chronic low back pain, hip, and groin pain. The low back pain has been chronic and longstanding issue for her, while the hip and groin pain are newer issues, worse on the right side. The patient reports that these pains intensify with walking, prolonged sitting or standing and navigating stairs, particularly due to the incline. The pain extends from right buttock and groin down to the knee. The patient denies any previous back surgeries and mentions having received back injections many years ago. Currently, she is not a candidate for steroid injections due to her osteoporosis. She is on alendronate and calcium with vitamin D3 with repeat bone scan in 2 years. She experiences degenerative joint disease and osteoarthritis primarily in the lower back, hips, and has significant pain with sacroiliac provocative testing. Additionally, [id number] head movements induce a cracking sensation in her neck and shoulders. The patient has received previous physical therapy interventions, with limited details on outcomes. She has a history of fibromyalgia and multiple pregnancies (8 pregnancies, 6 live births), as well as a past gallbladder removal and tubal ligation. She has no known substance use and describes a bothersome exposure to secondhand smoke and marijuana from a neighbor. - Onset and Timing: Chronic low back pain existing for an extended period; new right hip and groin pain. - Quality and Character: Pain described as worse when walking and climb stairs with an incline. - Primary Location: Low back, bilateral hips, groin, and extending to knees. - Radiation: Pain radiates from groin to knees. - Exacerbating Factors: Walking, using stairs. - Relieving Factors: Not specifically noted. - Interference: Walking, managing stairs, bending movements. - Affect: Pain affecting functional activities such as walking and climbing stairs; potential psychological or emotional impact not discussed. - Analgesia: Previous use of unspecified muscle relaxers; no current prescriptions due to lack of refills. - Adverse Effects: None reported from past muscle relaxant use. - Activities of Daily Living: Difficulties with walking and stairs; managed home and daily activities mentioning the second-floor accommodation. - Aberrant Drug Related Behaviors: None reported. [facility], [facility] Medical History (Updated 12/23/24 @ 21:16 by KENYATTA Delgado) Lumbar degenerative disc disease Sacroiliac joint pain Vulvar leukoplakia Osteoporosis HLD (hyperlipidemia) Vertigo GERD (gastroesophageal reflux disease) Hepatic steatosis COPD (chronic obstructive pulmonary disease) Allergic rhinitis Asthma Depression Anxiety Fibromyalgia Hypothyroidism Surgical History Hx of cholecystectomy Hx of tubal ligation Family History Mother Asthma Brother HTN (hypertension) Son HTN (hypertension) Social History Household Members: Spouse Housing: Apartment Alcohol intake: never Patient Tobacco Use Status: Never used Tobacco Current occupational status: unemployed Sexual orientation: Straight/Heterosexual Gender identity: Female Review of Systems Const Details: - Musculoskeletal: Reports chronic right hip pain, radiating to right groin and ribs - General: Denies recent trauma or incidents; denies chest pain or dyspnea, cough, or dizziness All systems reviewed & are unremarkable except as noted in HPI and below Physical Exam Vital Signs: Last Vital Signs Pulse 80 12/23/24 13:10 BP 150/68 H 12/23/24 13:10 Pulse Ox 95 12/23/24 13:10 Oxygen Delivery Method Room Air 12/23/24 13:10 BMI result Body Mass Index 32.0 General: Appears afebrile. Alert and oriented. Mood and affect appropriate. Follows and participates in conversation appropriately. Respiratory effort is unlabored. No cough. Able to transition from sit to stand unassisted. Ambulates with bilaterally normal heel strike and toe off. General: Yes no CVA tenderness Back/Spine/Pelvis Other: Limited lumbar ROM due to pain. Lumbar flexion and bending reproduce mild pain, lumbar extension and axial rotation reproduce moderate pain. Demonstrates 5/5 left and 4/5 right due to pain strength of quadriceps bilaterally as well as flexion/dorsiflexion of bilateral feet against resistance. 2+ pedal pulses bilaterally. Straight leg rise with dorsiflexion negative bilaterally. +2 patellar and achilles reflexes bilaterally. Facet loading test positive bilaterally. Alysha sign, Simeon?s and Stinchfield tests are positive bilaterally, right>left. Mild groin pain with I/E hip rotations on the right. Valsalva maneuver negative. Multiple widespread TTPs bilaterally, including upper and lower extremities.? Back: no CVA tenderness Cervical Spine: cervical ROM normal, cervical muscular tenderness and No Cervical spine tenderness Thoracic/Lumbar Spine: thoracic and lumbar spine normal to inspection, No Thoracic/lumbar spine scar(s), Lasegue's sign negative, straight leg raise negative bilaterally, pain with thoraco-lumbar ROM, paraspinal muscle tenderness bilaterally, thoraco-lumbar ROM limited, No thoracic spinal tenderness and lumbar spinal tenderness (L4-S1) Pelvis: buttock tenderness on the right and no sciatic notch tenderness Sacroiliac joints: bilaterally tender to palpation Results Reviewed Results Reviewed: Three views of the lumbar spine. 09/30/24 COMPARISON: None FINDINGS: Five [id number] lumbar type vertebral bodies. Normal vertebral body alignment. Vertebral body heights are maintained. No evidence of acute vertebral body injury. Loss of disc space height at L4-5 and L5-S1. Small marginal osteophytes present throughout the lumbar spine. Facet joint arthrosis present within the mid to lower lumbar spine with neural foraminal narrowing most pronounced at L5-S1. Visualized portions of the bones of the pelvis appear intact. Moderate colonic stool burden. IMPRESSION: 1. No radiographic evidence of acute injury to the lumbar spine. 2. Moderate to advanced lower lumbar spondylosis most pronounced at L5-S1. AP pelvis, Two views of left and right hip. 09/30/24 COMPARISON: None FINDINGS: Pelvic ring appears maintained. Pelvic phleboliths present. Degenerative changes of the partially visualized lower lumbar spine. Right hip: Visualized portions of the proximal right femur appears intact. Right femoral head is appropriately seated in the acetabulum. No significant degenerative changes. Left hip: Visualized portions of the proximal left femur appears intact. Left femoral head is appropriately seated in the acetabulum. No significant degenerative changes. IMPRESSION: 1. No radiographic evidence of acute injury to the pelvis and bilateral hips. No significant degenerative changes of the bilateral hips. 2. Degenerative changes of the partially visualized lower lumbar spine. DEXA axial skeleton 12/24/23 IMPRESSION: Osteoporosis based on the lowest T-score value of -2.6 in the femoral neck applying World Health Organization criteria. Assessment & Plan Assessment & Plan (1) Fibromyalgia: Code(s): M79.7 - Fibromyalgia Category: Medical (2) Osteoporosis: Code(s): M81.0 - Age-related osteoporosis without current pathological fracture Category: Medical (3) Lumbosacral spondylosis: Code(s): M47.817 - Spondylosis without myelopathy or radiculopathy, lumbosacral region Category: Medical (4) Right hip pain: Code(s): M25.551 - Pain in right hip Category: Medical (5) Lumbar degenerative disc disease: Code(s): M51.369 - Other intervertebral disc degeneration, lumbar region without mention of lumbar back pain or lower extremity pain Category: Medical (6) Sacroiliac joint pain: Code(s): M53.3 - Sacrococcygeal disorders, not elsewhere classified Category: Medical Plan The patient was informed that the sacroiliac joint injection provided only 50% pain relief, which is insufficient for further sustained treatments. We reviewed the next step such as considering lumbar medial branch blocks to address her lower back pain. Due to the patient's osteoporosis, steroid injections in the hip, sacroiliac joint, or back are not recommended. The patient was advised to consider the proposed interventional treatments and to inform the clinician if she wishes to proceed. Patient is hesitant towards further interventional treatments and would like to think about it and discuss with her family. All questions and concerns have been answered and patient agreed with the plan. Follow-up as needed. Patient was informed and verbally consented to the use of an ambient scribe for clinic note documentation during this visit.? Coding Level of Care Code Est Pt Level 3 (35775) Complex EM visit Add On G2211 Diagnoses Fibromyalgia M79.7 Osteoporosis M81.0 Lumbosacral spondylosis M47.817 Right hip pain M25.551 Lumbar degenerative disc disease M51.369 Sacroiliac joint pain M53.3
--- OUTSIDE RECORDS SUMMARY | 2024-12-23 13:08 | XMS_ITS | Clinical Summary ---
Author Organization [facility] Address [address] [place] [address] Phone Care Team Providers Care Electrophysiologist Name Role Phone Dave JimP-Karin Primary Care [...] ID:Not on file Type:Not on file Address: [place] [id number] Medicaid [place] Member Subscriber Plan / Payer (Ef fective 2020-Present) Name:Cheli Wilks Relation to Subscriber:Self Name:Cheli Wilks Payer ID:Not on file Group ID:Not on file Type:Not on file Address: [place] [id number] Care Teams Electrophysiologist Relationship Specialty Start Date End Date Dave Jim, PUBLIC OPINION SURVEY TAKER-C PCP - General Nurse Practitioner 09/07/20
--- OUTSIDE RECORDS SUMMARY | 2024-12-23 13:08 | XMS_ITS | Encounter Summary ---
Author Organization [employer] Address [address] [facility] [address] [place] [address] Care Team Providers Care Loss Control Consultant Name Role Phone Alta Martinez [facility] Primary Care Provider [phone] Lucía Nixon MD Primary Care Pro vider Reason for Visit * Reason Onset Date Comments call back 07/29/2022 Encounter Details Date Type Department Care Team ([facility] st Contact Info) Description 07/29/2022 Telephone [facility] [address] [place] [address] Alta Martinez [address] Dept [place] [address] call back Social History Tobacco Use Types [...] Visit [facility] [address] [place] [address] Lucía Nixon MD [address] [place], [place] [phone] documented as of this encounter Visit Diagnoses Not on filedocumented in this encounter Care Teams Loss Control Consultant Relationship Specialty Start Date End Date Alta Martinez FNP PCP - General Family Medicine 02/14/22 12/29/22 Lucía Nixon MD [address] [place] [id number] PCP - General Internal Medicine 12/30/22 documented as of this encounter
[2024-12-23 13:10] VITALS: BP 150/68; PULSE 80; O2SAT 95; BMI 32.0
== END 2024-12-23 13:34 | disposition home or self-care (01) ==
PROVIDERS: PCP Student in an Organized Health Care Education/Training Program; Visit Provider Nurse Practitioner Family
DX: M79.7 Fibromyalgia (principal); M81.0 Age-related osteoporosis without current pathological fracture; M47.817 Spondylosis without myelopathy or radiculopathy, lumbosacral region; M25.551 Pain in right hip; M51.369 Other intervertebral disc degeneration, lumbar region without mention of lumbar back pain or lower extremity pain; M53.3 Sacrococcygeal disorders, not elsewhere classified
CPT/HCPCS: 99213; G2211

== ENCOUNTER → 2024-12-23 13:04 | Outpatient (BNVA) | payer OTHER, SELFPAY | PROVIDERS: PCP Student in an Organized Health Care Education/Training Program; Visit Provider Nurse Practitioner Family | DX: M79.7 Fibromyalgia (principal); M81.0 Age-related osteoporosis without current pathological fracture; M47.817 Spondylosis without myelopathy or radiculopathy, lumbosacral region; M25.551 Pain in right hip; M51.369 Other intervertebral disc degeneration, lumbar region without mention of lumbar back pain or lower extremity pain; M53.3 Sacrococcygeal disorders, not elsewhere classified | CPT/HCPCS: 99212 ==

== ENCOUNTER → 2024-12-26 09:26 | Outpatient (BNV) | payer OTHER, SELFPAY | PROVIDERS: PCP Student in an Organized Health Care Education/Training Program; Visit Provider Radiology Diagnostic Radiology | DX: R41.3 Other amnesia (principal) | CPT/HCPCS: 70551 ==

== ENCOUNTER 2024-12-26 09:34 | Outpatient (REF) | payer OTHER, SELFPAY ==
--- NOTE | ~2024-12-26 | MR_ITS ---
CLINICAL HISTORY: pt with worsening memory loss MR Brain without gadolinium Comparison: None provided Findings: No restricted diffusion. No intra-axial mass or hemorrhage. No midline shift. No hydrocephalus. Vascular flow voids are intact. Bilateral cataract surgery. Partial bilateral ethmoid air cell opacification and mild bilateral maxillary sinus mucosal thickening. No focal bone lesion. 5 mm nonspecific nodule versus nonenlarged lymph node in the superficial right parotid gland. IMPRESSION: Unremarkable brain. Specifically no evidence of mesial temporal lobe volume loss. This document has been electronically signed by: Zulma Merlos MD on 12/27/2024 11:11:41
--- OUTSIDE RECORDS SUMMARY | 2024-12-26 09:37 | XMS_ITS | Clinical Summary ---
Author Organization [facility] Address [address] [place] [address] Phone Care Team Providers Care Boiler Setter Name Role Phone Dave JimP-Karin Primary Care [...] ID:Not on file Type:Not on file Address: [place] [id number] Medicaid [place] Member Subscriber Plan / Payer (Ef fective 2020-Present) Name:Cheli Wilks Relation to Subscriber:Self Name:Cheli Wilks Payer ID:Not on file Group ID:Not on file Type:Not on file Address: [place] [id number] Care Teams Boiler Setter Relationship Specialty Start Date End Date Dave Jim, THIRD COOK-C PCP - General Nurse Practitioner 09/07/20
== END 2024-12-26 09:35 | disposition home or self-care (01) ==
LOC: HO.MRI 09:34
PROVIDERS: PCP Student in an Organized Health Care Education/Training Program; Visit Provider Student in an Organized Health Care Education/Training Program
DX: R41.3 Other amnesia (principal)
CPT/HCPCS: 70551

== ENCOUNTER 2024-12-28 12:59 | Outpatient (AMB) | payer OTHER, SELFPAY ==
[2024-12-28 13:21] VITALS: BP 110/72; PULSE 81; O2SAT 96; BMI 32.2
--- NOTE | 2024-12-28 13:21 | MHC.OFFVIS ---
Vital Signs 12/28/24 13:21 Height 4 ft 9 in Weight 148 lb 12.992 oz BMI 32.2 BP 110/72 Blood Pressure Location Lt brachial Position Sitting Pulse 81 Pulse Source Pulse Oximeter Pulse Oximetry (%) 96 Oxygen Delivery Method Room Air Intake Visit Reasons: Bronchitis Intake Note: pt is here for follow up and states besides the pain in the back pretty good Assignment Desk Assistant Required: Yes Assignment Desk Assistant Services: Assignment Desk Assistant Present Assignment Desk Assistant Name: Tori (OA) Allergies tramadol (TRAMADOL) Allergy (Unknown, Verified 12/28/24 13:41) NAUSEA & VOMITING, nausea and vomiting codeine (CODEINE) Adverse Reaction (Severe, Verified 12/28/24 13:41) NAUSEA & VOMITING Codeine Sulfate Allergy (Unknown, Uncoded 12/28/24 13:41) stomach upset Medication List - Last Reconciled 12/28/24 by Shae Rodney MD albuterol sulfate 90 mcg/actuation 2 puffs inhalation Q4-6H PRN 30 days alendronate mg PO cholecalciferol (vitamin D3) 50 mcg PO DAILY clobetasol 0.05% 1 appl topical BID 5 days fluticasone propion-salmeterol 250-50 mcg/dose (Wixela Inhub) 1 inh inhalation BID 30 days levothyroxine mcg PO DAILY loratadine 10 mg PO DAILY montelukast (Singulair) 10 mg PO DAILY omeprazole 20 mg PO DAILY tizanidine 4 mg PO BID PRN Do you need a note to return to daycare/school/sports/work: No HPI HPI Bronchitis: Details: 64 years old very pleasant female is here for 6 months follow-up. She is being treated for chronic intermittent bronchial asthma. Uses Wixela 250-51 inhalation b.i.d. and most of the days she is using only once in the morning, does not need or forgets to use in the afternoon. She is also not using the rescue inhaler except occasionally. She has no unusual shortness of breath on exertion. Luckily has had no respiratory infection in the last 6 months. [facility] Medical History Lumbar degenerative disc disease Sacroiliac joint pain Vulvar leukoplakia Osteoporosis HLD (hyperlipidemia) Vertigo GERD (gastroesophageal reflux disease) Hepatic steatosis COPD (chronic obstructive pulmonary disease) Allergic rhinitis Asthma Depression Anxiety Fibromyalgia Hypothyroidism Surgical History Hx of cholecystectomy Hx of tubal ligation Family History Mother Asthma Brother HTN (hypertension) Son HTN (hypertension) Social History Household Members: Spouse Housing: Apartment Alcohol intake: never Patient Tobacco Use Status: Never used Tobacco Current occupational status: unemployed Sexual orientation: Straight/Heterosexual Gender identity: Female Review of Systems Const All systems reviewed & are unremarkable except as noted in HPI and below ENT Reports nasal congestion (Mild off and on) Card Denies syncope, Denies irregular heart rhythm and Denies leg edema Resp Reports as per HPI GI Reports heartburn (Symptoms of GERD being treated with omeprazole) Reports no additional complaints Musc Reports no additional complaints Skin/Breast Reports system reviewed and no additional complaints, except as documented Neuro Reports no additional complaints and Denies syncope Psych Reports no additional complaints Endo Reports no additional complaints Yaniv/Lymph Reports no additional complaints Physical Exam Vital Signs: Last Vital Signs Pulse 81 12/28/24 13:21 BP 110/72 12/28/24 13:21 Pulse Ox 96 12/28/24 13:21 Oxygen Delivery Method Room Air 12/28/24 13:21 BMI result Body Mass Index 32.2 Const General: healthy appearing, comfortable, no acute distress, alert and awake Orientation/consciousness: patient oriented x3 HEENT Head: Yes normal to inspection General nose exam: No nasal polyps present and No nasal discharge present Face and sinus: Yes sinuses nontender Mouth: oropharynx normal Throat: Yes posterior oropharynx normal Eyes General: appearance normal, both eyes and all related structures Neck Neck: Yes normal visual inspection, Yes no lymphadenopathy, Yes trachea midline and Yes no JVD Thyroid: Thyroid normal Chest Chest palpation & inspection: normal inspection of the chest, normal palpation of entire chest wall and no tenderness Resp Other: Percussion note is resonant, breath sounds are slightly distant with prolonged expiratory phase. Today no wheezes or rhonchi are heard, and no crepitations. Cardio Palpation: normal PMI Rate: regular rate Rhythm: regular rhythm Heart sounds: Gallop heart sound present and Murmur heart sound present Peripheral pulses: Peripheral pulses 2+ throughout GI Palpation (GI): Soft to palpation, Tenderness to palpation present (GI), No hepatosplenomegaly present and Palpable mass present Auscultation: normal bowel sounds Back/Spine/Pelvis Thoracic/Lumbar Spine: thoracic and lumbar spine normal to inspection Skin General skin exam: no rashes or lesions noted Neuro General: patient oriented x3 and no focal motor deficits Cranial nerves: Yes CN's II-XII intact bilaterally Extrem General: Yes normal to inspection, Yes no clubbing, cyanosis or edema and Yes no calf tenderness Psych Speech and movement: Normal speech and movement present Assessment & Plan Assessment & Plan (1) Asthma: Comment: PATIENT HAS CHRONIC INTERMITTENT BRONCHIAL ASTHMA RELATED TO SEASONAL ALLERGIES . AT PRESENT IT IS WELL CONTROLLED AND STABLE. Code(s): J45.909 - Unspecified asthma, uncomplicated Category: Medical Plan: CONTINUE USING WIXELA 250-51 INHALATION B.I.D. BUT IF SYMPTOMS ARE UNDER GOOD CONTROLLED SHE CAN USE ONLY ONCE A DAY IN THE MORNING. (2) Allergic rhinitis: Comment: PATIENT DOES HAVE RELATIVELY CHRONIC RECURRENT ALLERGIC RHINITIS PROBABLY RELATED TO SEASONAL ALLERGIES. AT PRESENT IT IS WELL CONTROLLED Code(s): J30.9 - Allergic rhinitis, unspecified Category: Medical Plan: CONTINUE TO USE MONTELUKAST 10 MG DAILY AND LORATADINE 10 MG ONCE A DAY P.R.N. Coding Level of Care Code Est Pt Level 3 (99184) Diagnoses Asthma J45.909 Allergic rhinitis J30.9
--- OUTSIDE RECORDS SUMMARY | 2024-12-28 13:42 | XMS_ITS | Clinical Summary ---
Author Organization [facility] Address [address] [place] [address] Phone Care Team Providers Care Gluten Settling Tender Name Role Phone Dave JimP-Karin Primary Care [...] Pneumococcal Vaccine: 50+ Ye ars (1 of 1 - PCV) 2008 Influenza Vaccine (#1) 2025 Hepatitis B Vaccine Aged Out No longe r eligible based on patient's age to complete this topic Insurance Medicaid [place] Member Subscriber Plan / Payer (Ef fective 2020-Present) Name:Cheli Wilks Relation to Subscriber:Self Name:Cheli Wilks Payer ID:Not on file Group ID:Not on file Type:Not on file Address[address] [address] Medicaid [place] Member Subscriber Plan / Payer (Ef fective 2020-Present) Name:Cheli Wilks Relation to Subscriber:Self Name:Cheli Wilks Payer ID:Not on file Group ID:Not on file Type:Not on file Address: [place] [id number] Care Teams Gluten Settling Tender Relationship Specialty Start Date End Date Dave Jim, REFINERY OPERATOR CRUDE UNIT-C PCP - General Nurse Practitioner 09/07/20
--- OUTSIDE RECORDS SUMMARY | 2024-12-28 13:42 | XMS_ITS | Encounter Summary ---
Author Organization [employer] Address [address] [facility] 7 [place] [address] Care Team Providers Care Apprentice Plant Attendant Name Role Phone Alta Martinez [facility] Primary Care Provider [phone]- [phone] Lucía Nixon MD Primary Care Pro vider Reason for Visit * Reason Onset Date Comments call back 07/29/2022 Encounter Details Date Type Department Care Team ([facility] st Contact Info) Description 07/29/[address] [facility] [address] [place] [address] Alta Martinez [address] [place] [address] call back Social History Tobacco Use Types [...] 02/18/2025 1:15 PM EDT Office Visit [facility] [address] [place] [address] Lucía Nixon MD [address] [place], [place] [phone] documented as of this encounter Visit Diagnoses Not on filedocumented in this encounter Care Teams Apprentice Plant Attendant Relationship Specialty Start Date End Date Alta Martinez FNP PCP - General Family Medicine 02/14/22 12/29/22 Lucía Nixon MD [address] [place] [id number] PCP - General Internal Medicine 12/30/22 documented as of this encounter
== END 2024-12-28 13:34 | disposition home or self-care (01) ==
LOC: HO.HPS 13:04
PROVIDERS: PCP Student in an Organized Health Care Education/Training Program; Visit Provider Internal Medicine
DX: J45.909 Unspecified asthma, uncomplicated (principal); J30.9 Allergic rhinitis, unspecified
CPT/HCPCS: 99213

== ENCOUNTER → 2024-12-28 12:59 | Outpatient (BNVA) | payer OTHER, SELFPAY | PROVIDERS: PCP Student in an Organized Health Care Education/Training Program; Visit Provider Internal Medicine | DX: J45.20 Mild intermittent asthma, uncomplicated (principal); J30.9 Allergic rhinitis, unspecified | CPT/HCPCS: 99212 ==

== ENCOUNTER 2025-02-18 14:04 | Outpatient (REF) | payer OTHER, SELFPAY ==
--- OUTSIDE RECORDS SUMMARY | 2025-02-18 13:15 | XMS_ITS | Encounter Summary ---
Author Organization [employer] Address [address] [place] [address] [address], [place] [address] Care Team Providers Care Diesel Power Mechanic Name Role Phone Lucía Nixon MD Primary Care Pro vider Reason for Referral * Consultation (Routine) - Pending Review Specialty Diagnoses / Procedures Referred By Jose De Jesus greene Referred To Contact Neurology Diagnoses Memory loss Lucía Nixon MD [address] [place] [address] Phone: tel: fax: Referral ID Status Reason Start Date Expiration Date Visits Requested Visits Authorized [id number] Pending Review Specialty Services Required 02/18/2025 02/18/2026 1 1 * Consultation (Routine) - Pending Review Specialty Diagnoses / Procedures Referred By Jose De Jesus greene Referred To Contact Otolaryngology Diagnoses Parotid nodule Vertigo Lucía Nixon MD [address] [place] [address] Phone: tel: fax: Referral ID Status Reason Start Date Expiration Date Visits Requested Visits Authorized [id number] Pending Review Specialty Services Required 02/18/2025 02/18/2026 1 1 Encounter Details Date Type Department Care Team ([facility] st Contact Info) Description 02/18/2025 1:15 PM EDT Office Visit [facility] [address] [place] [phone] Lucía Nixon MD [address] [place] [address] [place] [address] Parotid nodule (Primary Dx); Vertigo; Health care maintenance; Memory loss Social History Tobacco Use Types Packs/Day Years Used Date Smoking Tobacco: Never Passive Smoke Exposure: Never Smokeless Tobacco: Never Tobacco Cessation:Counseling Given: Not Answered Alcohol Use Standard Drinks/Week Comments Never 0 (1 standard drink = 0.6 oz pur e alcohol) Depression Answer Date Recorded Patient Health Questionnaire-9 Score 0 12/03/2024 Patient Health Questionnaire-9 Score 0 12/03/2024 Last PHQ-9: Questionnaire Data Not on file 0 12/03/2024 Housing Stability Answer Date Recorded What is [...] Date Recorded Patient Health Questionnaire-2 Score 0 12/03/2024 Internet Access Answer Date Recorded Internet Access Q1 Yes 11/26/2024 Internet Access Q2 Not on file 11/26/2024 Comments Unknown Sex and Gender Information Value Date Recorded Sex Assigned at Female 04/22/2022 10:18 AM EDT Legal Sex Female 10:18 AM EDT Gender Identity Female 04/22/2022 10:18 AM EDT Sexual Orientation Straight 04/22/2022 10 :18 AM EDT documented as of this encounter Last Filed Vital Signs Vital Sign Reading Time Taken Comments Blood Pressure 130/70 02/18/2025 1:16 PM EDT Pulse 73 02/18/2025 1:16 PM EDT Temperature 36.3 C (97.3 F) 02/18/2025 1:16 PM EDT Respiratory Rate 20 02/18/2025 1:16 PM EDT Oxygen Saturation 98% 02/18/2025 1:16 PM EDT Inhaled Oxygen Concentration - - Weight 66.2 kg (146 lb) 02/18/2025 1:16 PM EDT Height 144.8 cm (4' 9 ) 02/18/2025 1:16 PM EDT Body Mass Index 31.59 02/18/2025 1:16 PM EDT documented in this encounter Plan of Treatment Scheduled Orders Name Type Priority Associated Diagnoses Orde r Schedule CBC auto differential Lab Routine Health care maintenance Expected: 02/18/2025 (Approximate), Expires: 02/18/2026 Comprehensive Metabolic Panel Lab Routine Health care maintenance Expected: 02/18/2025 (Approximate), Expires: 02/18/2026 Hemoglobin A1c Lab Routine Health care maintenance Expected: 02/18/2025 (Approximate), Expires: 02/18/2026 Syphilis Screen Lab Routine Health care maintenance Expected: 02/18/2025 (Approximate), Expires: 02/18/2026 T4, Free Lab Routine Health care maintenance Expected: 02/18/2025 (Approximate), Expires: 02/18/2026 TSH Lab Routine Health care maintenance Expected: 02/18/2025 (Approximate), Expires: 02/18/2026 Lipid Panel, Standard Lab Routine Health care maintenance Expected: 02/18/2025 (Approximate), Expires: 02/18/2026 Vitamin D, 25-Hydroxy, Total, Immunoassay Lab Routine Health care maintenance Expected: 02/18/2025 (Approximate), Expires: 02/18/2026 Vitamin B12 (Cobalamin) and Folate Panel, Serum Lab Routine Health care maintenance Expected: 02/18/2025 (Approximate), Expires: 02/18/2026 Scheduled Referrals Name Type Priority Associated Diagnoses Orde r Schedule Referral to ENT Outpatient Referral Routine Parotid nodule Vertigo Expected: 02/18/2025 (Approximate), Expires: 02/18/2026 Referral to Neurology Outpatient Referral Routine Memory loss Expected: 02/18/2025 (Approximate), Expires: 02/18/2026 documented as of this encounter Visit Diagnoses Diagnosis Parotid nodule- Primary Vertigo Dizziness and giddiness Health care maintenance Memory loss documented in this encounter Additional Health Concerns Assessment Noted Time PHQ-9 Depression Total Score: 0 12/04/19 25 1:27 PM EDT documented as of this encounter Care Teams Diesel Power Mechanic Relationship Specialty Start Date End Date Lucía Nixon MD [address] [place] [phone] PCP - General Internal Medicine 12/30/22 documented as of this encounter
--- OUTSIDE RECORDS SUMMARY | 2025-02-18 14:09 | XMS_ITS | Encounter Summary ---
Author Organization [employer] Address [address] [facility] 7[address] [place] [address] Care Team Providers Care Commercial Leasing Agent Name Role Phone Lucía Nixon MD Primary Care Pro vider Encounter Details Date Type Department Care Team ([facility] st Contact Info) Description 01/01/2023 Abstract [facility] [address] [place] [address] Lucía Nixon MD [address] [place] [address] Social History Tobacco Use Types Packs/Day Years [...] as of this encounter Plan of Treatment Not on file documented as of this encounter Procedures Procedure Name Priority Date/Time Associated Diagnosis Comments HM PAP/HPV Routine 10/09/2018 12:00 AM EDT documented in this encounter Results * Hm Pap Smear (10/09/2018 12:00 AM EDT) us Historical Provider HEALTH MAINTENANCE Final Result [facility] [address] [place] [address] [phone] documented in this encounter Visit Diagnoses Not on filedocumented in this encounter Additional Health Concerns Assessment Noted Time PHQ-9 Depression Total Score: 0 11/30/19 23 2:40 PM EDT documented as of this encounter Care Teams Commercial Leasing Agent Relationship Specialty Start Date End Date Lucía Nixon MD [address] [place] [address] PCP - General Internal Medicine 12/30/22 documented as of this encounter
--- OUTSIDE RECORDS SUMMARY | 2025-02-18 14:09 | XMS_ITS | Encounter Summary ---
Author Organization [employer] Address [address] [facility] 7 [place] [address] Care Team Providers Care Lead Sql Developer Name Role Phone Lucía Nixon MD Primary Care Pro vider Reason for Visit * Reason Onset Date Comments chartprep 02/17/2025 Encounter Details Date Type Department Care Team ([facility] st Contact Info) Description 02/17/2025 Telephone [facility] [address] [place] [address] Lucía Nixon MD [address] [place] [address] chartprep Social History Tobacco Use Types Packs/Day Years [...] encounter Miscellaneous Notes * Telephone Encounter - Dionne Sandra [place] - 02/17/2025 10:44 AM EDT ..Chart Prep Labs: not done Images: done MR Brain Vaccines due: Covid Due, Hep A Due, Hep B Due, and RSV in Pharmacy Due Referrals: Not Applicable Screenings: Not Applicable Overdue care gaps: None documented in this encounter Plan of Treatment Not on file documented as of this encounter Visit Diagnoses Not on filedocumented in this encounter Additional Health Concerns Assessment Noted Time PHQ-9 Depression Total Score: 0 12/04/19 25 1:27 PM EDT documented as of this encounter Care Teams Lead Sql Developer Relationship Specialty Start Date End Date Lucía Nixon MD [address] [place] [address] PCP - General Internal Medicine 12/30/22 documented as of this encounter
--- OUTSIDE RECORDS SUMMARY | 2025-02-18 14:09 | XMS_ITS | Encounter Summary ---
Author Organization [employer] Address [address] 7[address] [place] [address] Care Team Providers Care Safety Associate Name Role Phone Lucía Nixon MD Primary Care Pro vider Encounter Details Date Type Department Care Team (Late st Contact Info) Description 11/24/2023 Orders Only [facility] [address] [place] [address] Provider, MD Amairani Social History Tobacco Use Types Packs/Day Years [...] as of this encounter Care Teams Safety Associate Relationship Specialty Start Date End Date Lucía Nixon MD [address] [place] [id number] PCP - General Internal Medicine 12/30/22 documented as of this encounter
--- OUTSIDE RECORDS SUMMARY | 2025-02-18 14:09 | XMS_ITS | Clinical Summary ---
Author Organization [facility] Address [address] [place] [address] Phone Care Team Providers Care Nanny Caregiver Name Role Phone Dave JimP-Karin Primary Care [...] ID:Not on file Type:Not on file Address[address] [address] Medicaid [place] Member Subscriber Plan / Payer (Ef fective 2020-Present) Name:Cheli Wilks Relation to Subscriber:Self Name:Cheli Wilks Payer ID:Not on file Group ID:Not on file Type:Not on file Address: [place] [id number] Care Teams Nanny Caregiver Relationship Specialty Start Date End Date Dave Jim, ADULT HEALTH CLINICAL NURSE SPECIALIST-C PCP - General Nurse Practitioner 09/07/20
--- OUTSIDE RECORDS SUMMARY | 2025-02-18 14:09 | XMS_ITS | Clinical Summary ---
Author Organization [employer] Address [address] [facility] 7t [place] [address] Care Team Providers Care Frame Bander Name Role Phone Lucía Nixon MD Primary Care Pro vider Allergies Active Allergy Reactions Criticality Noted Date Comments Codeine Other 07/16/2022 GI side effects Menthol 12/03/2023 Tramadol Dizziness 11/12/2013 Medications Blood Pressure Monitoring (Omron 3 Series BP Monitor) device USE TO CHECK BLOOD PRESSURE ONCE DAILY DIRECTED 2 Active Diclofenac Sodium 1 % gelIndications:C hronic bilateral low back pain with bilateral sciatica TO APPLY TO THE AFFECTED AREA 3 TIMES A DAY 100 g 1 3 Active albuterol (Ventolin HFA) 108 (90 Base) MCG/ACT inhaler INHALE 2 PUFFS BY MOUTH FOUR TIMES A DAY IF NEEDED FOR WHEEZING, SHORTNESS OF BREATH, OR COUGH. 60.3 g 4 Active levothyroxine (Synthroid, Levoxyl) 75 MCG tablet TAKE 1 TABLET BY MOUTH EVERY DAY IN THE MORNING 90 tablet 1 5 Active alendronate (Fosamax) 70 MG tablet TAKE 1 TABLET (70 MG) BY MOUTH EVERY 7 (SEVEN) DAYS. TAKE IN THE MORNING WITH A FULL GLASS OF WATER, ON AN EMPTY STOMACH, AND DO NOT TAKE ANYTHING ELSE BY MOUTH OR LIE DOWN FOR THE NEXT 30 MIN. 4 tablet 5 5 07/19/19 26 Active Icosapent Ethyl (Vascepa) 1 g capsule Take 2 capsules (2 g) by mouth with breakfast and with evening meal. 120 capsule 3 5 09/28/19 26 Active cholecalciferol (Vitamin D-3) 50 MCG (1999) tabletIndication s:Vitamin D deficiency TOME ARIANA TABLETA TODOS LOS D 90 tablet 1 5 Active loratadine (Claritin) 10 MG tablet TAKE 1 TABLET BY MOUTH EVERY DAY NEEDED 90 tablet 1 5 Active Wixela Inhub 250-50 MCG/ACT aerosol powder TAKE 1 PUFF BY MOUTH TWICE A DAY FOR ASTHMA/COPD 5 Active montelukast (Singulair) 10 MG tablet TAKE 1 TABLET (10 MG) BY MOUTH IN THE EVENING 90 tablet 1 5 Active omeprazole (PriLOSEC) [address] capsuleIndicatijudit ns:Gastroesophag eal reflux disease, unspecified whether esophagitis present Take 1 capsule (20 mg) by mouth if needed each day (GERD). Please only give to pt if requesting refills , pt taking only PRN thanks 90 capsule 5 Active tiZANidine (Zanaflex) 4 MG tablet 5 Active calcium carbonate (Calcium 600) 600 MG tablet Take 1 tablet (600 mg) by mouth with breakfast and with evening meal. 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 Overview (03/23/2024): Established w/ [facility] FE[employer] PROJECT ENGINEER, plan for biopsy per 03/23/24 FEED PROJECT ENGINEER note Allergic rhinitis 01/20/2024 Osteoporosis 01/20/2024 Lower [...] EST): BV swab from last week at [facility] reviewed showed Gardnerella Vaginalis Given that patient [...] Encounters Date Type Department Care Team Description 02/18/2025 1:15 PM EDT Office Visit [address] [address] Lucía Nixon MD Parotid nodule (Primary Dx); Vertigo; Health care maintenance; Memory loss 02/18/2025 Travel 02/17/[address] [address] Lucía Nixon MD chartprep 12/27/2024 Results Follow-Up [address] [address] Lucía Nixon MD MR Brain w/o Contrast 12/03/2024 1:15 PM EDT Office Visit [address] [address] Lucía Nixon MD Poor memory (Primary Dx); Health care maintenance; Neck pain; Chronic obstructive pulmonary disease, unspecified COPD type (CMS/HCC); Osteoporosis, unspecified osteoporosis type, unspecified pathological fracture presence; Obesity (BMI 30-39.9); Vertigo 12/03/2024 Travel 12/02/[address] [phone] Lucía Nixon MD chart prep 12/02/[address] [phone] Lucía Nixon MD Chart Prep 11/26/2024 Patient Outreach [facility] [address] [place] [address] Lucía Nixon MD Pre-visit Planning (SDOH negative, Tobacco screening negative. ) 11/20/2024 Refill [facility] [address] [place] [address] Jasmin Villafana MD Gastroesophageal reflux disease, unspecified whether esophagitis present 11/18/2024 1:30 PM EDT Clinical Support [facility] [address] [facility] [place] [address] Heena Jaimes RN Poor memory 11/18/2024 Travel from Last 3 Months Immunizations Immunization Administration Dates Next Due Influenza injectable quadriv [...] Mass Index 31.59 02/18/2025 1:16 PM EDT Plan of Treatment Health Maintenance Due Date [...] Vaccine ( season) 2024 Influenza Vaccine (#1) 2025 , 04/09/2019, 06/04/2018, Additional history exists Mammogram 06/14/2025 06/14/2024, 02/0 06/2023, 06/13/2023, Additional history exists Alcohol/Substance Use Screening 09/27/2025 09/27/2024 SDOH Screening 11/26/2025 11/26/2024 Depression Screening 12/03/2025 12/03/2024, 12/04/19 Tobacco Screening 02/18/2026 02/18/2025 HPV/Cotest 07/16/2028 Pap Smear 07/16/2028 07/16/2023, 10/09/2018 [...] patient's age to complete this topic Meningococcal B Vaccine Aged Out No l onger eligible based on patient's age to complete [...] Procedure Name Priority Date/Time Associated Diagnosis Comments MR BRAIN WO CONTRAST Routine 12/27/2024 11:11 AM EDT Poor memory BI MAMMOGRAM SCREENING TOMOSYNTHESIS BILATERAL Routine 06/14/2024 [...] Recently Relevant to Health Maintenance Results * MR Brain w/o Contrast (12/27/2024 11:11 AM EDT) Anatomical Region Laterality Modality Brain Magnetic Resonan ce 12/27/2024 11:1 1 AM EDT Narrative 12/27/2024 11:13 AM EDT [place] [address] Magnetic Resonance Report Signed Patient: Cheli Wilks MR#: [id number] 971 : 1960 Acct:[id number] Age/Sex: 64 / F ADM Date: 12/26/24 Loc: HO.MRI Attending Dr: Lucía Good MD Ordering Physician: Lucía Nixon MD Date of Service: 12/26/24 Procedure(s): MR head/brain wo [facility] Accession Number(s): [id number] cc: Lucía Nixon MD CLINICAL HISTORY: pt with worsening memory loss MR Brain without gadolinium Comparison: None provided Findings: No restricted diffusion. No intra-axial mass or hemorrhage. No midline shift. No hydrocephalus. Vascular flow voids are intact. Bilateral cataract surgery. Partial bilateral ethmoid air cell opacification and mild bilateral maxillary sinus mucosal thickening. No focal bone lesion. 5 mm nonspecific nodule versus nonenlarged lymph node in the superficial right parotid gland. IMPRESSION: Unremarkable brain. Specifically no evidence of mesial temporal lobe volume loss. This document has been electronically signed by: Zulma Merlos MD on 12/27/2024 11:11:41 Dictated By: Zulma Merlos MD Signed By: <Electronically signed by Zulma Merlos MD in OV> 12/27/24 1112 DD/ 1111 TD/TT: 12/27/24 1111 Sewage Plant Attendant: Procedure Note Donotuseinterpreter, Image - 12/27/2024 [place] [address] Magnetic Resonance Report Signed Patient: Edy Wilks#: [id number] 971 : 8Acct:[id number] Age/Sex: 64 / FADM Date: 12/26/24 Loc: HO.MRI Attending Dr: Lucía Good MD Ordering Physician: Lucía Nixon MD Date of Service: 12/26/24 Procedure(s): MR head/brain wo con Accession Number(s): [id number] cc: Lucía Nixon MD CLINICAL HISTORY: pt with worsening memory loss MR Brain without gadolinium Comparison: None provided Findings: No restricted diffusion. No intra-axial mass or hemorrhage. No midline shift. No hydrocephalus. Vascular flow voids are intact. Bilateral cataract surgery. Partial bilateral ethmoid air cell opacification and mild bilateral maxillary sinus mucosal thickening. No focal bone lesion. 5 mm nonspecific nodule versus nonenlarged lymph node in the superficial right parotid gland. IMPRESSION: Unremarkable brain. Specifically no evidence of mesial temporal lobe volume loss. This document has been electronically signed by: Zulma Merlos MD on 12/27/2024 11:11:41 Dictated By: Zulma Merlos MD Signed By: <Electronically signed by Zulma Merlos MD in OV> 12/27/24 1112 DD/ 1111 TD/TT: 12/27/24 1111 Sewage Plant Attendant: us Lucía Good MD IMG MRI PROCEDURE S Final Result * BI Mammogram Screening Tomosynthesis Bilateral (06/14/2024 2:30 PM EST) Anatomical Region Laterality Modality Breast Bilateral Mammography 06/14/2024 2:30 PM EST Narrative 06/28/2024 1:33 PM EST [address] [place] [address] Mammography Report Signed Patient: Cheli Wilks MR#: [id number] 971 : 1960 Acct:[id number] Age/Sex: 63 / F ADM Date: 06/14/24 Loc: HO.MAMMO Attending Dr: Lucía Good MD Ordering Physician: Lucía Nixon MD Re sults: 1Negative Date of Service: 06/14/24 Follow Up: 1 Year From Orig inal Mammogram Procedure(s): MM tomosynthesis screening BI Accession Number(s): [id number] cc: Lucía Nixon MD EXAMINATION: MM SCREENING [...] by: Kaykay Fernandez DO 06/28/2024 01:30 PM EST Dictated By: Kaykay Fernandez DO Signed By: <Electronically signed by Kaykay Fernandez DO in OV> 06/28/24 1330 DD/ 1430 TD/TT: 06/14/24 1450 Sewage Plant Attendant: Procedure Note Donotuseinterpreter, Image - 06/28/[address] [place] [address] Mammography Report Signed Patient: Teresa WilksR#: [id number] : 8Acct:[id number] Age/Sex: 63 / FADM Date: 06/14/24 Loc: HO.MAMMO Attending Dr: Lucía Good MD Ordering Physician: Lucía Nixon sults: 1Negative Date of Service: 06/14/24Follow Up: 1 Year From Orig inal Mammogram Procedure(s): MM tomosynthesis screening BI Accession Number(s): [id number] cc: Lucía Nixon MD EXAMINATION: MM SCREENING [...] by: Kaykay Fernandez DO 06/28/2024 01:30 PM [facility] Dictated By: Kaykay Fernandez DO Signed By: <Electronically signed by Kaykay Fernandez DO in OV> 06/28/24 1330 DD/ 1430 TD/TT: 06/14/24 1450 Sewage Plant Attendant: us Lucía Good MD IM BI PROCEDURES Edited Result - Final * Lipid Panel, Standard (01/15/2024 8:56 AM EDT) Triglycerides 79 <150 mg/dL [facility] Comment:Desirable Triglyceri de: less than 150 mg/dLBorderline High Triglyceride 150-199 mg/dLHigh Triglyceride: 200-499 mg/dLVery High Triglyceride: greater than or equal to 5OO mg/dL Cholesterol 162 <200 mg/dL [facility] Comment:Desirable Cholestero l: less than 200 mg/dLBorderline High Cholesterol: 200-239 mg/dLHigh Cholesterol: greater than 239 mg/dL LDL Cholesterol Calculated 98 <100 mg/dL [facility] Comment:Desirable LDL: less than 100 mg/dLNear Optimal/Above Optimal LDL: 110- 129 mg/dLBorderline High LDL: 130-159 mg/dLHigh LDL: 160-189 mg/dLVery High LDL: greater than or equal to 190 mg/dL HDL Cholesterol 49 >40 mg/dL [facility] Comment:Desirable HDL: great er than 40 mg/dL Note: This HDL assay may give artificially low results in patients with liver disease. Blood Venous blood specimen / Unknown 01/15/2024 8:56 AM EDT 01/15/2024 11:14 AM EDT us Lucía Good MD LAB BLOOD ORDERAB LES Final Result Performing Organization Address [facility] Co de Phone Number [facility] [address] [place] [phone] * Hepatitis C Antibody with Reflex to HCV, RNA, Quantitative, Real-Time PCR (01/15/2024 8:46 AM EDT) Hepatitis C Antibody Nonreactive Nonreactive [facility] Comment:Antibodies to HCV no t detected; does not exclude early acuteHCV infection. Blood Venous blood specimen / Unknown 01/15/2024 8:46 AM EDT 01/15/2024 11:14 AM EDT us Lucía Good MD LAB BLOOD ORDERAB LES Final Result Performing Organization Address [facility] Co de Phone Number [facility] [address] [place] [phone] * Pap Smear (07/16/2023 3:14 PM EST) 07/16/2023 3:14 PM EST 07/17/2023 8:00 AM EST [place] [facility] - 08/01/2023 3:14 PM EST ----- ------- Name: Cheli Wilks Age/Sex: 63/F : 1960 Unit#: [id number] Attend Dr: Kanwal Horta CNM Re07/16/23 Status: DEP REF Location: [facility] Disch: ----- ------- SPEC : [id number] RECD: 07/17/23-08 STATUS: CHRISTELLE MCKNIGHT NUM: [id number] SHIRA: 07/16/23-151 [facility] DR: Kanwal Horta CNM ENTERED: 07/17/23-1104 SP TYPE: Pap Smr OTHR DR: Alta Martinez COW WASHER ORDERED: Pap Smear Interpretation Satisfactory for evaluation. Negative for intraepithelial lesion or malignancy. HPV mRNA E6/E7: NOT DETECTED This assay detects E6/E7 viral messenger RNA (mRNA) from 14 high-risk HPV types (16, 18, 31, 33, 35, 39, 45, 51, 52, 56, 58, 59, 66, 68) HPV testing performed by [facility], [place], [place]. See reference laboratory portion of the EMR for entire report. Clinical Information LMP: Postmenopausal Previous PAP test: 2019, WNL Material Received ThinPrep-Cervical Copies To: Kanwal Horta [facility] [address] [place], [place] [phone] Alta Martinez COW WASHER [address] [place] [address] ----- ------- Signed (signature on file) ZAIN Ochoa (ASCP) 08/01/23 1514 ----- ------- END OF REPORT Generic External Data Provider LAB CYTOLOGY ORDE RABLES Final Result [facility] [address] [place] [phone] [phone] * Colonoscopy (02/26/2019 12:21 PM EDT) Historical Provider HEALTH MAINTENANCE Final Result from Last 3 Months or Most Recently Relevant to Health Maintenance Insurance [employer] (O D-SNP) BILL [place] [id number] Care Teams Frame Bander Relationship Specialty Start Date End Date Lucía Nixon MD [address] [place] [address] PCP - General Internal Medicine 12/30/22
--- OUTSIDE RECORDS SUMMARY | 2025-02-18 14:09 | XMS_ITS | Encounter Summary ---
Author Organization [employer] Address 75 [facility] 7t [place] [address] Care Team Providers Care Senior Environmental Practice Leader Name Role Phone Alta Martinez APPLICATIONS SPECIALIST Primary Care Provider Lucía Belle MD Primary Care Pro vider Reason for Visit * Reason Onset Date Comments call back 07/29/2022 Encounter Details Date Type Department Care Team ([facility] st Contact Info) Description 07/29/2022 Telephone [facility] [address] [place] [address] Alta Martinez FNP call back Social History Tobacco Use Types [...] on filedocumented in this encounter Care Teams Senior Environmental Practice Leader Relationship Specialty Start Date End Date Alta Martinez FNP PCP - General Family Medicine 02/14/22 12/29/22 Lucía Nixon MD [address] [place] [phone] PCP - General Internal Medicine 12/30/22 documented as of this encounter
--- OUTSIDE RECORDS SUMMARY | 2025-02-18 14:09 | XMS_ITS | Encounter Summary ---
Author Organization [employer] Address [address] [place] [address] Care Team Providers Care Carpenter Form Name Role Phone Lucía Nixon MD Primary Care Pro vider Encounter Details Date Type Department Care Team (Latest Contact Info) Description 02/18/2025 Travel Social History Tobacco Use Types Packs/Day [...] documented as of this encounter Care Teams Carpenter Form Relationship Specialty Start Date End Date Lucía Nixon MD [address] [place] [phone] PCP - General Internal Medicine 12/30/22 documented as of this encounter
--- OUTSIDE RECORDS SUMMARY | 2025-02-18 14:09 | XMS_ITS | Encounter Summary ---
Author Organization [employer] Address [address] [facility] 7t [place] [address] Care Team Providers Care Office Helper Name Role Phone Lucía Nixon MD Primary Care Pro vider Encounter Details Date Type Department Care Team ([facility] st Contact Info) Description 12/27/2024 Results Follow-Up [facility] [address] [place] [address] Lucía Nixon MD [address] [place] [address] MR Brain w/o Contrast Social History Tobacco Use Types Packs/Day Years [...] as of this encounter Miscellaneous Notes * Result Encounter Note - Lucía Good MD - 12/27/2024 3:09 PM EDT Please call patient to advise to come to already scheduled apt with me to go over abnormal brain image Thanks documented in this encounter Plan of Treatment Not on file documented as of this encounter Visit Diagnoses Not on filedocumented in this encounter Additional Health Concerns Assessment Noted Time PHQ-9 Depression Total Score: 0 12/04/19 25 1:27 PM EDT documented as of this encounter Care Teams Office Helper Relationship Specialty Start Date End Date Lucía Nixon MD [address] [place] [phone] PCP - General Internal Medicine 12/30/22 documented as of this encounter
== END 2025-02-18 14:05 | disposition home or self-care (01) ==
LOC: HO.HHCL 14:04
PROVIDERS: PCP Student in an Organized Health Care Education/Training Program; Referring Provider Student in an Organized Health Care Education/Training Program; Visit Provider Student in an Organized Health Care Education/Training Program
DX: Z13.89 Encounter for screening for other disorder (principal)

== ENCOUNTER 2025-02-18 14:15 | Outpatient (REF) | payer OTHER, SELFPAY ==
--- NOTE | ~2025-02-18 | XR_ITS ---
EXAMINATION: XR CERVICAL SPINE 2-3 VIEWS HISTORY: PAIN COMPARISON: Comparison is made with the prior examination dated 12/03/2024. FINDINGS: AP, lateral, and open-mouth odontoid views of the cervical spine are submitted. Osseous mineralization is normal. Seven cervical vertebral bodies are identified maintaining normal height without evidence of fracture. Again seen is minimal retrolisthesis of C4 on C5. There is mild to moderate degenerative disc disease at the C4-5 level with disc space narrowing and osteophyte formation. Milder changes are noted at the remaining levels. The odontoid and lateral masses of C1 are intact. There is no prevertebral soft tissue swelling. XR/XR cervical spine 3V IMPRESSION: Degenerative changes of the cervical spine as described. Electronically signed by: Jorge Luis Vergara MD 02/18/2025 03:20 PM EDT
== END 2025-02-18 14:16 | disposition home or self-care (01) ==
LOC: HO.HHCX 14:15
PROVIDERS: PCP Student in an Organized Health Care Education/Training Program; Visit Provider Student in an Organized Health Care Education/Training Program
DX: M54.2 Cervicalgia (principal)
CPT/HCPCS: 72040

== ENCOUNTER → 2025-02-18 14:27 | Outpatient (BNV) | payer OTHER, SELFPAY | PROVIDERS: PCP Student in an Organized Health Care Education/Training Program; Visit Provider Radiology Diagnostic Radiology | DX: M50.30 Other cervical disc degeneration, unspecified cervical region (principal) | CPT/HCPCS: 72040 ==

== ENCOUNTER 2025-02-24 14:03 | Outpatient (REF) | payer OTHER, SELFPAY ==
--- OUTSIDE RECORDS SUMMARY | 2025-02-24 15:22 | XMS_ITS | Encounter Summary ---
Author Organization [employer] Address [address] [facility] [address] 7[address] [place] [address] Care Team Providers Care Note Keeper Name Role Phone Lucía Nixon MD Primary Care Pro vider Encounter Details Date Type Department Care Team (Late st Contact Info) Description 11/24/2023 Orders Only [facility] [address] [place] [address] Provider, MD Amairani Social History Tobacco Use [...] documented as of this encounter Care Teams Note Keeper Relationship Specialty Start Date End Date Lucía Nixon MD [address] [place] [phone] PCP - General Internal Medicine 12/30/22 documented as of this encounter
--- OUTSIDE RECORDS SUMMARY | 2025-02-24 15:22 | XMS_ITS | Encounter Summary ---
Author Organization [employer] Address [address] [facility] 7t [place] [address] Care Team Providers Care Extrusion Machine Operator Name Role Phone Lucía Nixon MD Primary Care Pro vider Reason for Visit * Reason Onset Date Comments [facility] 02/24/2025 I informed the p atient that an order for a [facility], was sent to the [facility] lab. She stated that she would have them done this afternoon. The results are being requested by [facility]. Encounter Details Date Type Department Care Team (Late st Contact Info) Description 02/24/2025 Telephone [facility] [address] [place], [place] [phone] Lucía Nixon MD [address] [place], [place] [phone] [facility] (I informed the patient that an order for a [facility], was sent to the [facility] lab. She stated that she would have them done this afternoon. The results are being requested by [facility].) Social History Tobacco Use Types Packs/Day Years [...] encounter Miscellaneous Notes * Telephone Encounter - Josiane Tesfaye MA - 02/24/2025 1:46 PM EDT I informed the patient that an order for a [facility]spot, was sent to the [facility] lab. She stated that she would have them done this afternoon. The results are being requested by [facility]. documented in this encounter Plan of Treatment Not on file documented as of this encounter Visit Diagnoses Not on filedocumented in this encounter Additional Health Concerns Assessment Noted Time PHQ-9 Depression Total Score: 0 12/04/19 25 1:27 PM EDT documented as of this encounter Care Teams Extrusion Machine Operator Relationship Specialty Start Date End Date Lucía Nixon MD [address] [place] [phone] PCP - General Internal Medicine 12/30/22 documented as of this encounter
--- OUTSIDE RECORDS SUMMARY | 2025-02-24 15:22 | XMS_ITS | Encounter Summary ---
Author Organization [employer] Address [address] [facility] 7t [place] [address] Care Team Providers Care Feed Blender Name Role Phone Lucía Nixon MD Primary Care Pro vider Encounter Details Date Type Department Care Team ([facility] st Contact Info) Description 01/01/2023 Abstract [facility] [address] [place] [address] Lucía Nixon MD [address] [place] [address] Social History Tobacco Use Types Packs/Day Years [...] us Historical Provider HEALTH MAINTENANCE Final Result [facility] [address] [place] [phone] documented in this encounter Visit Diagnoses Not on filedocumented in this encounter Additional Health Concerns Assessment Noted Time PHQ-9 Depression Total Score: 0 11/30/19 23 2:40 PM EDT documented as of this encounter Care Teams Feed Blender Relationship Specialty Start Date End Date Lucía Nixon MD [address] [place] [phone] PCP - General Internal Medicine 12/30/22 documented as of this encounter
--- OUTSIDE RECORDS SUMMARY | 2025-02-24 15:22 | XMS_ITS | Encounter Summary ---
Author Organization [employer] Address 75 [facility] [address]t [place] [address] Care Team Providers Care Water Softener Service Supervisor Name Role Phone Lucía Nixon MD Primary Care Pro vider Encounter Details Date Type Department Care Team ([facility] st Contact Info) Description 12/27/2024 Results Follow-Up [facility] MED[facility]INE [address] [place] [address] Lucía Nixon MD [address] [place] [address] MR Brain w/o Contrast Social History Tobacco [...] documented as of this encounter Care Teams Water Softener Service Supervisor Relationship Specialty Start Date End Date Lucía Nixon MD [address] [place] [phone] PCP - General Internal Medicine 12/30/22 documented as of this encounter
--- OUTSIDE RECORDS SUMMARY | 2025-02-24 15:22 | XMS_ITS | Clinical Summary ---
Author Organization [employer] Address [address] [facility] 7t [place] [address] Care Team Providers Care Headstart Teacher Name Role Phone Lucía Nixon MD Primary [...] 5 Active omeprazole (PriLOSEC) [address] capsuleIndicatio ns:Gastroesophag eal reflux disease, unspecified whether esophagitis present Take 1 capsule (20 mg) by mouth if needed each day (GERD). 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 Overview (03/23/2024): Established / [facility] [place] [place] ILLUSIONIST, plan for biopsy per 03/23/24 ILLUSIONIST note Allergic rhinitis 01/20/2024 Osteoporosis 01/20/2024 Lower [...] EST): BV swab from last week at [facility] [place] [place] reviewed showed Gardnerella Vaginalis Given that patient [...] Encounters Date Type Department Care Team Description 02/24/2025 Telephone [facility] [place] [address] Lucía Nixon MD [facility] (I informed the patient that an order for a Tspot, was sent to the [facility] lab. She stated that she would have them done this afternoon. The results are being requested by [facility].) 02/24/2025 Orders Only [facility] [place] [address] Fiona Petit, RN Screening for tuberculosis 02/18/2025 1:15 PM EDT Office Visit [address] [place] [address] Lucía Nixon MD Parotid nodule (Primary Dx); Vertigo; Health care maintenance; Memory loss; Obesity (BMI 30-39.9); Poor memory 02/18/2025 Results Follow-Up [facility] [place] [address] Lucía Nixon MD XR CERVICAL SPINE 3V 02/18/2025 Orders Only [facility] [place] [address] Lucía Nixon MD 02/18/2025 Travel 02/17/2025 Telephone [facility] [place] [address] Lucía Nixon MD chartprep 12/27/2024 Results Follow-Up [facility] [place] [address] Lucía Nixon MD MR Brain w/o Contrast 12/03/2024 1:15 PM EDT Office Visit [facility] [place] [address] Lucía Nixon MD Poor memory (Primary Dx); Health care maintenance; Neck pain; Chronic obstructive pulmonary disease, unspecified COPD type (CMS/HCC); Osteoporosis, unspecified osteoporosis type, unspecified pathological fracture presence; Obesity (BMI 30-39.9); Vertigo 12/03/2024 Travel 12/02/2024 Telephone [facility] [address] [place], [place] [phone] Lucía Nixon MD chart prep 12/02/2024 Telephone [facility] [address] [place], [place] [phone] Lucía Nixon MD Chart Prep 11/26/2024 Patient Outreach [facility] [address] [place], [place] [phone] Lucía Nixon MD Pre-visit Planning (SDOH negative, Tobacco screening negative. ) from Last 3 Months Immunizations Immunization Administration [...] 1-dose series) 2018 COVID-19 Vaccine ( season) 2025 Influenza Vaccine (#1) 2025 , 04/09/2019, 06/04/2018, Additional history exists Mammogram 06/14/2025 06/14/2024, 06/2023, 06/13/2023, Additional history exists Alcohol/Substance Use [...] Procedure Name Priority Date/Time Associated Diagnosis Comments XR CERVICAL SPINE 3V Routine 02/18/2025 2:27 PM EDT MR BRAIN WO CONTRAST Routine 12/27/2024 11:11 [...] Recently Relevant to Health Maintenance Results * XR CERVICAL SPINE 3V (02/18/2025 2:27 PM EDT) Anatomical Region Laterality Modality Abdomen Radiographic Asya ging 02/18/2025 2:27 PM EDT Narrative 02/18/2025 3:24 PM EDT [address] [address] XRay Report Signed Patient: Cheli Wilks MR#: [id number] 971 : 1960 Acct:[id number] Age/Sex: 64 / F ADM Date: 02/18/25 Loc: HO.HHCX Attending Dr: Lucía Good MD Ordering Physician: Lucía Nixon MD Date of Service: 02/18/25 Procedure(s): XR cervical spine 3V Accession Number(s): [id number] cc: Lucía Nixon MD EXAMINATION: XR CERVICAL SPINE 2-3 VIEWS HISTORY: PAIN COMPARISON: Comparison is made with the prior examination dated 12/03/2024. FINDINGS: AP, lateral, and open-mouth odontoid views of the cervical spine are submitted. Osseous mineralization is normal. Seven cervical vertebral bodies are identified maintaining normal height without evidence of fracture. Again seen is minimal retrolisthesis of C4 on C5. There is mild to moderate degenerative disc disease at the C4-5 level with disc space narrowing and osteophyte formation. Milder changes are noted at the remaining levels. The odontoid and lateral masses of C1 are intact. There is no prevertebral soft tissue swelling. XR/XR cervical spine 3V IMPRESSION: Degenerative changes of the cervical spine as described. Electronically signed by: Jorge Luis Vergara MD 02/18/2025 03:20 PM EDT RP Dictated By: Jorge Luis Vergara MD Signed By: <Electronically signed by Jorge Luis Vergara MD in OV> 02/18/25 1520 DD/ 1427 TD/TT: 02/18/25 1500 Tax Consultant: Procedure Note Donotuseinterpreter, Image - 02/18/[address] [address] XRay Report Signed Patient: Edy Wilks#: [id number] 971 : 8Acct:[id number] Age/Sex: 64 / FADM Date: 02/18/25 Loc: HO.HHCX Attending Dr: Lucía Good MD Ordering Physician: Lucía Nixon MD Date of Service: 02/18/25 Procedure(s): XR cervical spine 3V Accession Number(s): [id number] cc: Lucía Nixon MD EXAMINATION: XR CERVICAL SPINE 2-3 VIEWS HISTORY: PAIN COMPARISON: Comparison is made with the prior examination dated 12/03/2024. FINDINGS: AP, lateral, and open-mouth odontoid views of the cervical spine are submitted. Osseous mineralization is normal. Seven cervical vertebral bodies are identified maintaining normal height without evidence of fracture. Again seen is minimal retrolisthesis of C4 on C5. There is mild to moderate degenerative disc disease at the C4-5 level with disc space narrowing and osteophyte formation. Milder changes are noted at the remaining levels. The odontoid and lateral masses of C1 are intact. There is no prevertebral soft tissue swelling. XR/XR cervical spine 3V IMPRESSION: Degenerative changes of the cervical spine as described. Electronically signed by: Jorge Luis Vergara MD 02/18/2025 03:20 PM EDT RP Dictated By: Jorge Luis Vergara MD Signed By: <Electronically signed by Jorge Luis Vergara MD in OV> 02/18/25 1520 DD/ 1427 TD/TT: 02/18/25 1500 Tax Consultant: Lucía Good MD IMG XR PROCEDURES Final Result * MR Brain w/o Contrast (12/27/2024 11:11 AM EDT) Anatomical Region Laterality Modality Brain Magnetic Resonan ce 12/27/2024 11:1 1 AM EDT Narrative 12/27/2024 11:13 AM EDT [place] [address] Magnetic Resonance Report Signed Patient: Cheli Wilks MR#: [id number] 971 : 1960 Acct:[id number] Age/Sex: 64 / F ADM Date: 12/26/24 Loc: HO.MRI Attending Dr: Lucía Good MD Ordering Physician: Lucía Nixon MD Date of Service: 12/26/24 Procedure(s): MR head/brain wo con Accession Number(s): [id number] cc: Lucía Nixon MD CLINICAL HISTORY: pt [...] 12/27/24 1112 DD/ 1111 TD/TT: 12/27/24 1111 Tax Consultant: Procedure Note Donotuseinterpreter, Image - 12/27/[address] [address] Magnetic Resonance Report Signed Patient: Edy Wilks#: [id number] 971 : 8Acct:[id number] Age/Sex: 64 / FADM Date: 12/26/24 Loc: HO.MRI Attending Dr: Lucía Good MD Ordering Physician: Lucía Nixon MD Date of Service: 12/26/24 Procedure(s): MR head/brain wo [facility] Accession Number(s): [id number] cc: Lucía Nixon MD CLINICAL HISTORY: pt [...] 12/27/24 1112 DD/ 1111 TD/TT: 12/27/24 1111 Tax Consultant: us Lucía Good MD IMG MRI PROCEDURE S Final Result * BI Mammogram Screening Tomosynthesis Bilateral (06/14/2024 2:30 PM EST) Anatomical Region Laterality Modality Breast Bilateral Mammography 06/14/2024 2:30 PM EST Narrative 06/28/2024 1:33 PM EST [facility] [address] [place] [address] Mammography Report Signed Patient: Cheli Wilks MR#: [id number] 971 : 1960 Acct:[id number] Age/Sex: 63 / F ADM Date: 06/14/24 Loc: HO.MAMMO Attending Dr: Lucía Good MD Ordering Physician: Lucía Nixon MD Re sults: 1Negative Date of Service: 06/14/24 Follow Up: 1 Year From Orig inal Mammogram Procedure(s): MM tomosynthesis screening BI Accession Number(s): [id number] cc: Lucía Nixon MD EXAMINATION: MM SCREENING [...] 06/28/24 1330 DD/ 1430 TD/TT: 06/14/24 1450 Tax Consultant: Procedure Note Donotuseinterpreter, Image - 06/28/2024 [facility] [address] [place] [address] [place] [address] Mammography Report Signed Patient: Teresa WilksR#: [id number] 971 : 8Acct:[id number] Age/Sex: 63 / FADM Date: 06/14/24 Loc: HO.MAMMO Attending Dr: Lucía Good MD Ordering Physician: Lucía Nixon sults: 1Negative Date of Service: 06/14/24Follow Up: 1 Year From Orig inal Mammogram Procedure(s): MM tomosynthesis screening BI Accession Number(s): [id number] cc: Lucía Nixon MD EXAMINATION: MM SCREENING [...] 06/28/24 1330 DD/ 1430 TD/TT: 06/14/24 1450 Tax Consultant: us Lucía Good MD IM BI PROCEDURES Edited Result - Final * Lipid Panel, Standard (01/15/2024 8:56 AM EDT) Triglycerides 79 <150 mg/dL [facility] Comment:Desirable Triglyceri de: less than 150 mg/dLBorderline High Triglyceride 150-199 mg/dLHigh Triglyceride: 200-499 mg/dLVery High Triglyceride: greater than or equal to 5OO mg/dL Cholesterol 162 <200 mg/dL [facility] Comment:Desirable Cholestero l: less than 200 mg/dLBorderline High Cholesterol: 200-239 mg/dLHigh Cholesterol: greater than 239 mg/dL LDL Cholesterol Calculated 98 <100 mg/dL [facility] Comment:Desirable LDL: less than 100 mg/dLNear Optimal/Above Optimal LDL: 110- 129 mg/dLBorderline High LDL: 130-159 mg/dLHigh LDL: 160-189 mg/dLVery High LDL: greater than or equal to 190 mg/dL HDL Cholesterol 49 >40 mg/dL [facility] Comment:Desirable HDL: great er than 40 mg/dL Note: This HDL assay may give artificially low results in patients with liver disease. Blood Venous blood specimen / Unknown 01/15/2024 8:56 AM EDT 01/15/2024 11:14 AM EDT us Lucía Good MD LAB BLOOD ORDERAB LES Final Result Performing Organization Address [facility] Co de Phone Number [facility] [address] [place] [phone] * Hepatitis C Antibody with Reflex to HCV, RNA, Quantitative, Real-Time PCR (01/15/2024 8:46 AM EDT) Hepatitis C Antibody Nonreactive Nonreactive [facility] Comment:Antibodies to HCV no t detected; does not exclude early acuteHCV infection. Blood Venous blood specimen / Unknown 01/15/2024 8:46 AM EDT 01/15/2024 11:14 AM EDT us Lucía Good MD LAB BLOOD ORDERAB LES Final Result Performing Organization Address City/[facility]/ZIP Co de Phone Number [facility] [address] [place] [phone] * Pap Smear (07/16/2023 3:14 PM EST) 07/16/2023 3:14 PM EST 07/17/2023 8:00 AM EST [facility] - 08/01/2023 3:14 PM EST ----- ------- Name: Cheli Wilks Age/Sex: 63/F : 1960 Unit#: [id number] Attend Dr: Kanwal Horta CNM Re07/16/23 Status: DEP REF Location: HO.LNP Disch: ----- ------- SPEC : [id number] RECD: 07/17/23-799 STATUS: CHRISTELLE MCKNIGHT NUM: [id number] SHIRA: 07/16/23-[address] [facility] [address]: Kanwal Horta CNM ENTERED: 07/17/23-1103 SP TYPE: Pap Smr OTHR DR: Alta Martinez CARDIOLOGIST ORDERED: Pap Smear Interpretation Satisfactory for evaluation. Negative for intraepithelial lesion or malignancy. HPV mRNA E6/E7: NOT DETECTED This assay detects E6/E7 viral messenger RNA (mRNA) from 14 high-risk HPV types (16, 18, 31, 33, 35, 39, 45, 51, 52, 56, 58, 59, 66, 68) HPV testing performed by [facility] [employer] [facility], [place], [place]. See reference laboratory portion of the EMR for entire report. Clinical Information LMP: Postmenopausal Previous PAP test: 2019, WNL Material Received ThinPrep-Cervical Copies To: Kanwal Horta [address] [place] [address] Alta Martinez CARDIOLOGIST [address] [place] [address] ----- ------- Signed (signature on file) ZAIN [place] (ASCP) 08/01/23 1514 ----- ------- END OF REPORT us Generic External Data Provider LAB CYTOLOGY CJ RABMARY Final Result [facility] [address] [place] [phone] * Hm Colonoscopy (02/26/2019 12:21 PM EDT) Historical Provider HEALTH MAINTENANCE Final Result from Last 3 Months or Most Recently Relevant to Health Maintenance Insurance [facility] [employer] (HMO D-SNP) BILL [place] [id number] Care Teams Headstart Teacher Relationship Specialty Start Date End Date Lucía Nixon MD [address] [place] [phone] PCP - General Internal Medicine 12/30/22
--- OUTSIDE RECORDS SUMMARY | 2025-02-24 15:22 | XMS_ITS | Encounter Summary ---
Author Organization [employer] Address [address] [facility] 7 [place] [address] Care Team Providers Care Injection Maintenance Technician Name Role Phone Lucía Nixon MD Primary Care Pro vider Reason for Visit * Reason Onset Date Comments Results 02/18/2025 Encounter Details Date Type Department Care Team ([facility] st Contact Info) Description 02/18/2025 Results Follow-Up [facility] [address] [place] [address] Lucía Nixon MD [address] [place] [address] XR CERVICAL SPINE 3V Social History Tobacco Use Types Packs/Day Years [...] encounter Miscellaneous Notes * Telephone Encounter - Heena Jaimes RN - 02/22/2025 9:11 AM EDT Telephone call x1 to pt via Joslyn Lemus #[phone]. Advised neck xray shows age related, degenerative changes for which PCP recommends physical therapy. Pt declines this at this time, stated she no longer has neck pain. Advised to call back if pain returns for reevaluation or PT referral, pt verbalized understanding, no further questions. * Telephone Encounter - Heena Jaimes RN - 02/22/2025 9:06 AM EDT ----- Message from Lucía Good MD sent at 02/18/2025 3:34 PM EDT ----- Please inform pt Neck XR is reporting Degenerative changes of the cervical spine If pt is having pain I can refer to PT if interested Please let me know Thanks -- Described minimal retrolisthesis of C4 on C5. There is mild to moderate degenerative disc disease at the C4-5 level with disc space narrowing and osteophyte formation. Milder changes are noted at the remaining levels. The odontoid and lateral masses of C1 are intact. There is no prevertebral soft tissue swelling. ----- Message ----- From: Interface, Ris Results In Sent: 02/18/2025 3:24 PM EDT To: Lucía Good MD * Result Encounter Note - Lucía Good MD - 02/18/2025 3:34 PM EDT Please inform pt Neck XR is reporting Degenerative changes of the cervical spine If pt is having pain I can refer to PT if interested Please let me know Thanks -- Described minimal retrolisthesis of C4 on C5. There is mild to moderate degenerative disc disease at the C4-5 level with disc space narrowing and osteophyte formation. Milder changes are noted at theremaining levels. The odontoid and lateral masses of C1 are intact. There is no prevertebral soft ti ssue swelling. documented in this encounter Plan of Treatment Not on file documented as of this encounter Visit Diagnoses Not on filedocumented in this encounter Additional Health Concerns Assessment Noted Time PHQ-9 Depression Total Score: 0 12/04/19 25 1:27 PM EDT documented as of this encounter Care Teams Injection Maintenance Technician Relationship Specialty Start Date End Date Lucía Nixon MD [address] [place] [phone] PCP - General Internal Medicine 12/30/22 documented as of this encounter
--- OUTSIDE RECORDS SUMMARY | 2025-02-24 15:22 | XMS_ITS | Encounter Summary ---
Author Organization [employer] Address [address] [facility] 7t [place] [address] Care Team Providers Care Hog Operator Name Role Phone Alta Martinez FAMILY DAY CARE PROVIDER Primary Care Provider Lucía Belle MD Primary Care Pro vider Reason for Visit * Reason Onset Date Comments call back 07/29/2022 Encounter Details Date Type Department Care Team ([facility] st Contact Info) Description 07/29/2022 Telephone [facility] [address] [place] [address] Alta Martinez FNP call back Social History [...] on filedocumented in this encounter Care Teams Hog Operator Relationship Specialty Start Date End Date Alta Martinez FNP PCP - General Family Medicine 02/14/22 12/29/22 Lucía Nixon MD [address] [place] [phone] PCP - General Internal Medicine 12/30/22 documented as of this encounter
--- OUTSIDE RECORDS SUMMARY | 2025-02-24 15:22 | XMS_ITS | Encounter Summary ---
Author Organization [employer] Address [address] [address] 7[address] [place] [address] Care Team Providers Care Sampling Expert Name Role Phone Lucía Nixon MD Primary Care Pro vider Encounter Details Date Type Department Care Team ([facility] st Contact Info) Description 02/24/2025 Orders Only [facility] [address] [place], [place] [phone] Fiona Petit RN [address] [place] [address] Screening for tuberculosis Social History Tobacco Use Types Packs/Day Years [...] AM EDT documented as of this encounter Progress Notes * Fiona Petit RN - 02/24/2025 9:35 AM EDT Incoming call from Patricia in forms stating pt needs tspot for a form. Tspot ordered. documented in this encounter Plan of Treatment Scheduled Orders Name Type Priority Associated Diagnoses Orde r Schedule T-SPOT .TB Lab Routine Screening for tuberculosis Expected: 02/24/2025 (Approximate), Expires: 02/24/2026 documented as of this encounter Visit Diagnoses Diagnosis Screening for tuberculosis Screening examination for pulmonary tuberculosis documented in this encounter Additional Health Concerns Assessment Noted Time PHQ-9 Depression Total Score: 0 12/04/19 25 1:27 PM EDT documented as of this encounter Care Teams Sampling Expert Relationship Specialty Start Date End Date Lucía Nixon MD [address] [place] [phone] PCP - General Internal Medicine 12/30/22 documented as of this encounter
--- OUTSIDE RECORDS SUMMARY | 2025-02-24 15:22 | XMS_ITS | Clinical Summary ---
Author Organization [facility] Address [address] [place] [address] [place] [phone] Phone Care Team Providers Care Flask Carrier Name Role Phone Dave JimP-Karin Primary Care Provider Unavailable Allergies Active Allergy Reactions Criticality Noted Date Comments Codeine 11/02/2020 Tramadol 11/02/2020 Medications fluticasone-jnaie meterol (ADVAIR DISKUS) 250-50 MCG/DOSE diskus inhaler [...] ID:Not on file Type:Not on file Address: [address] Medicaid [place] Member Subscriber Plan / Payer (Ef fective 2020-Present) Name:Cheli Wilks Relation to Subscriber:Self Name:Cheli Wilks Payer ID:Not on file Group ID:Not on file Type:Not on file Address: [place] [id number] Care Teams Flask Carrier Relationship Specialty Start Date End Date Dave Jim, IMPLEMENT MECHANIC-C PCP - General Nurse Practitioner 09/07/20
[2025-02-27 08:08] LABS: TS Negative Control Passed; TS Panel A 0; TS Panel B 0; TS Positive Control Passed; TSpotTB Negative (Negative)
== END 2025-02-24 14:04 | disposition home or self-care (01) ==
LOC: HO.HHCL 14:03
PROVIDERS: PCP Student in an Organized Health Care Education/Training Program; Visit Provider Student in an Organized Health Care Education/Training Program
DX: Z11.1 Encounter for screening for respiratory tuberculosis (principal)
CPT/HCPCS: 36415; 86481

== ENCOUNTER 2025-03-13 15:04 | Emergency (ER) | payer OTHER, SELFPAY ==
--- NOTE | ~2025-03-13 | CT_ITS ---
CLINICAL HISTORY: pain compression fx? CT Lumbar Spine WO Contrast COMPARISON: CR - XR LUMBAR SPINE 2-3V - 09/30/24 11:04 EDT FINDINGS: No acute fracture or malalignment. Degenerative changes in the spine. Left renal cyst. Diffusely hypodense liver consistent with hepatic steatosis. Colonic diverticulosis without evidence of acute diverticulitis. Unremarkable soft tissues. IMPRESSION: No acute findings. Nonemergent/incidental findings above. This document has been electronically signed by: Ellis Taylor MD on 03/13/2025 22:19:42
--- NOTE | 2025-03-13 15:16 | ED.GENADULT ---
HPI - General Adult General Chief complaint: General Medical Stated complaint: low back pain radiating to hips/legs Time Seen by Provider: 03/13/25 20:13 Source: patient Limitations: language barrier History of Present Illness ED Provider: Martha Rice PA-C HPI narrative: 64-year-old female with a history of fibromyalgia, osteoporosis, chronic lumbar degenerative disc disease, asthma, hypothyroidism, GERD who presents with right low back pain for 1 week. Pain primarily right-sided with radiation down right lower extremity to the point of the knee. Patient denies new activity, heavy lifting or trauma that could have precipitated her symptoms. Denies weakness of lower extremities, paresthesia, urinary retention or bowel incontinence. Patient states when she urinates it ?hurts?. But denies dysuria. Denies nausea vomiting or fever. Related Data Home Medications ?Medication ?Instructions ?Recorded ?Confirmed loratadine 10 mg tablet 10 mg PO DAILY 05/03/21 12/28/24 montelukast 10 mg tablet 10 mg PO DAILY 05/03/21 12/28/24 (Singulair) omeprazole 20 mg capsule,delayed 20 mg PO DAILY 05/03/21 12/28/24 release alendronate 70 mg tablet mg PO 07/21/24 12/28/24 cholecalciferol (vitamin D3) 50 50 mcg PO DAILY 07/21/24 12/28/24 mcg (2,000 unit) capsule levothyroxine 75 mcg tablet mcg PO DAILY 07/21/24 12/28/24 Previous Rx's ?Medication ?Instructions ?Recorded albuterol sulfate 90 mcg/actuation 2 puff inhalation Q4-6H PRN 06/28/24 aerosol inhaler shortness of breath or wheezing 30 days #8.5 grams fluticasone 250 mcg-salmeterol 50 1 inh inhalation BID ASTHMA/COPD 06/28/24 mcg/dose blistr powdr for 30 days #60 ea inhalation (Wixela Inhub) clobetasol 0.05 % topical cream 1 appl topical BID 5 days #45 grams 09/13/24 tizanidine 4 mg tablet 4 mg PO BID PRN muscle spasm #60 11/23/24 tabs ketorolac 10 mg tablet 10 mg PO Q6H PRN pain #20 tabs 03/13/25 methylprednisolone 4 mg tablets in 4 mg PO QAM #21 ea 03/13/25 a dose pack (Medrol (Iftikhar)) nitrofurantoin 100 mg PO Q12H 7 days #14 caps 03/13/25 monohydrate/macrocrystals 100 mg capsule (Macrobid) tizanidine 6 mg capsule 6 mg PO Q8H PRN pain, moderate #15 03/13/25 caps Allergies Allergy/AdvReac Type Severity Reaction Status Date / Time tramadol (TRAMADOL) Allergy Unknown NAUSEA & Verified 03/13/25 15:20 VOMITING, nausea and vomiting codeine (CODEINE) AdvReac Severe NAUSEA & Verified 03/13/25 15:20 VOMITING Codeine Sulfate Allergy Unknown stomach Uncoded 12/28/24 13:41 upset Review of Systems Review of Systems: Yes all other systems are reviewed and are negative Constitutional: Constitutional: Denies fatigue and Denies fever(s) Cardiovascular: Cardiovascular: Denies chest pain and Denies dyspnea Respiratory: Respiratory: Denies dyspnea Gastrointestinal: Gastrointestinal: Denies abdominal pain, Denies nausea and Denies vomiting Genitourinary: Genitourinary: Reports dysuria and Denies flank pain Musculoskeletal: Musculoskeletal: Reports back pain, Denies muscle weakness, Denies numbness, Reports radiating pain into limb and Denies tingling Neurologic: Denies numbness and Denies tingling Endocrine: Endocrine: Denies fatigue PMFSH Past Medical History Attestation statement: The following information was validated with the patient. Medical History Lumbar degenerative disc disease Sacroiliac joint pain Vulvar leukoplakia Osteoporosis HLD (hyperlipidemia) Vertigo GERD (gastroesophageal reflux disease) Hepatic steatosis COPD (chronic obstructive pulmonary disease) Allergic rhinitis Asthma Depression Anxiety Fibromyalgia Hypothyroidism Surgical History Hx of cholecystectomy Hx of tubal ligation Family History Family History Mother Asthma Brother HTN (hypertension) Son HTN (hypertension) Social History Social History Household Members: Spouse Housing: Apartment Alcohol intake: never Patient Tobacco Use Status: Never used Tobacco Advance Directives: No Advance Directives Information Provided: No Current occupational status: unemployed Sexual orientation: Straight/Heterosexual Gender identity: Female Physical Exam ED Vital Signs: Vital Signs - 24 hr 03/13/25 15:19 03/13/25 21:32 Temperature 97.1 F 98.0 F Pulse Rate 64 64 Respiratory Rate 16 16 Blood Pressure 125/61 109/52 L Pulse Oximetry 97 97 Oxygen Delivery Method Room Air BMI result Body Mass Index 31.4 Const Other: Alert well-appearing Orientation/consciousness: patient oriented x3 Resp Effort & Inspection: normal respiratory effort Cardio Other: Normal peripheral perfusion Skin Other: Warm dry no rash Neuro Other: Ambulates normally without assistance normal steady gait General: patient oriented x3, gait normal, no focal motor deficits and CN's II-XI intact bilaterally Extrem Other: Strength 5/5 bilateral lower extremities with resistance, minimal straight leg raise right side secondary to pain Psych Other: Cooperative Course Course Course Narrative: This is a rapid medical exam performed by Harriet Abel NP: Additional HPI, ROS, PE not included below will be deferred to primary provider. Patient is a 64y/o Andorran speaking female presenting to the ED with complaint of right lower back pain radiating down right leg for a while, but worsening over the past 3 days. Specifically requesting an MRI and states that an x-ray won't show anything. Reports urinary frequency, denies saddle anesthesia, n/b incontinence. Plan: UA, will defer imaging to primary provider Medications Administered Discontinued Medications Generic Name Dose Route Start Last Admin Trade Name Freq PRN Reason Stop Dose Admin Ketorolac Tromethamine 15 mg 03/13/25 20:15 03/13/25 21:36 Ketorolac Tromethamine 15 Mg/Ml Vial IM 03/13/25 20:16 15 mg ONCE ONE Administration Methocarbamol 1,500 mg 03/13/25 20:15 03/13/25 21:36 Methocarbamol 750 Mg Tablet PO 03/13/25 20:16 1,500 mg ONCE ONE Administration Prednisone 10 mg 03/13/25 20:42 03/13/25 21:36 Prednisone 10 Mg Tablet PO 03/13/25 20:43 10 mg ONCE ONE Administration Medical Decision Making Medical Decision Making MDM Narrative: 64-year-old female with a history of fibromyalgia, osteoporosis, chronic lumbar degenerative disc disease, asthma, hypothyroidism, GERD who presents with right low back pain for 1 week. Pain primarily right-sided with radiation down right lower extremity to the point of the knee. Patient denies new activity, heavy lifting or trauma that could have precipitated her symptoms. Denies weakness of lower extremities, paresthesia, urinary retention or bowel incontinence. Patient states when she urinates it ?hurts?. But denies dysuria. Denies nausea vomiting or fever. Problem: Chronic back pain, fibromyalgia, age History: Per patient I have considered the following differential diagnoses: Lumbar radiculopathy, compression fracture, cauda equina, lumbar strain, urinary tract infection, renal colic, pyelonephritis Plan: In regard to the back pain the patient is experiencing radicular symptoms without red flag signs symptoms concerning for cord compression. Given her history, we will obtain imaging to rule out concurrent compression fracture. Her pain is nontraumatic. The patient is not having dysuria, she is not the best historian, perhaps while straining to void it is exacerbating her back pain. We will collect a urine sample to err on the side of caution. She has no mid back or flank pain to suggest renal colic, she has no nausea vomiting fever to suggest pyelonephritis. I do not feel we need additional labs at this time I have independently reviewed the following tests: Labs: Questionable UTI...... Given her age we will treat with Macrobid CT lumbar spine:FINDINGS: No acute fracture or malalignment. Degenerative changes in the spine. Left renal cyst. Diffusely hypodense liver consistent with hepatic steatosis. Colonic diverticulosis without evidence of acute diverticulitis. Unremarkable soft tissues. IMPRESSION: No acute findings. Nonemergent/incidental findings above. Differential Diagnosis Differential Diagnoses: The differential diagnosis associated with the presentation includes See medical decision-making Admission/Observation Consideration of admission/observation: Escalation of care including admission/observation considered Not applicable Lab Data MDM Lab Attestation statement: I reviewed the patient's lab results. Labs: Lab Results 03/13/25 Range/Units 21:35 Urine Color Yellow Urine Appearance Cloudy Urine pH 6.0 (5.0-9.0) Ur Specific [place] 1.020 (1.005-1.025) Urine Protein Trace (Neg-Trace) mg/dL Urine Glucose (UA) Negative (Negative) mg/dL Urine Ketones Trace (Negative) mg/dL Urine Blood Small (1+) H (Negative) Urine Nitrite Negative (Negative) Ur Leukocyte Esterase Small (1+) H (Negative) Urine RBC 3-5 H (0-2) /HPF Urine WBC 6-10 (0-5) /HPF Ur Squamous Epith Cells 6-10 (0-2) /HPF Urine Bacteria 1+ (None Seen) Hyaline Casts 0-2 (0-2) /LPF Radiology Impression Discussion of test interpretation with radiology: I have reviewed the radiologist's reading. Discharge Plan Discharge Clinical Impression: Urinary tract infection, Right lumbar radiculopathy, Osteoarthritis Patient Disposition: Home, Self-Care Instructions: Lumbar Radiculopathy (ED), Urinary Tract Infection in Older Adults (ED) Additional Instructions: You have evidence of a questionable urinary tract infection, we will treat it. Take the Macrobid as directed. You also were found to have arthritis in your low back, this is the likely cause of your discomfort, see home care instructions. Take the tizanidine as needed for pain, this is a muscle relaxant, it will cause drowsiness, do not drive or operate machinery while taking the medication. Take the steroid taper as directed, take the ketorolac as directed take both medications with food. We will do these medications are anti-inflammatory. Follow up with your primary care provider as needed. Prescriptions: New tizanidine 6 mg capsule 6 mg PO Q8H PRN (Reason: pain, moderate) Qty: 15 0RF methylprednisolone [Medrol (Iftikhar)] 4 mg tablets,dose pack 4 mg PO QAM Qty: 21 0RF Rx Instructions: Take per package instructions ketorolac 10 mg tablet 10 mg PO Q6H PRN (Reason: pain) Qty: 20 0RF Rx Instructions: maximum total duration of 5 days from all oral, intranasal, or parenteral formulations. The patient received an intramuscular dose of Toradol here in the emergency room nitrofurantoin monohyd/m-cryst [Macrobid] 100 mg capsule 100 mg PO Q12H 7 Days Qty: 14 0RF Rx Instructions: must administer with a meal/food No Action clobetasol 0.05 % cream 1 appl topical BID 5 Days Qty: 45 0RF Rx Instructions: Then maintenance therapy for 2-3 times per week tizanidine 4 mg tablet 4 mg PO BID PRN (Reason: muscle spasm) Qty: 60 2RF montelukast [Singulair] 10 mg tablet 10 mg PO DAILY loratadine 10 mg tablet 10 mg PO DAILY omeprazole 20 mg capsule,delayed release(DR/EC) 20 mg PO DAILY fluticasone propion-salmeterol [Wixela Inhub] 250-50 mcg/dose blister with device 1 inh inhalation BID 30 Days Qty: 60 5RF albuterol sulfate 90 mcg/actuation HFA aerosol inhaler 2 puff inhalation Q4-6H PRN (Reason: shortness of breath or wheezing) 30 Days Qty: 8.5 5RF alendronate 70 mg tablet PO cholecalciferol (vitamin D3) 50 mcg (2,000 unit) capsule 50 mcg PO DAILY levothyroxine 75 mcg tablet PO DAILY Print Language: Andorran
[2025-03-13 15:19] VITALS: BP 125/61; PULSE 64; RESP 16; TEMP 36.2; O2SAT 97; BMI 31.4
--- OUTSIDE RECORDS SUMMARY | 2025-03-13 19:58 | XMS_ITS | Encounter Summary ---
Author Organization [employer] Address [address] [place] [address] 7 [place] [address] Care Team Providers Care Oil Prospecting Observer Name Role Phone Lucía Nixon MD Primary Care Pro vider Encounter Details Date Type Department Care Team ([facility] Contact Info) Description 01/01/2023 Abstract [facility] MEDICINE [address] [place] [address] [phone] Lucía Nixon MD [address] [place], [place] [phone] Social History Tobacco Use Types Packs/Day Years [...] Department Care Team (Late Contact Info) Description 05/26/2025 11:15 AM EST Office Visit [facility]INE [address] [place] [address] [phone] Lucía Nixon MD [address] [place] [address] documented as of this encounter Procedures Procedure Name Priority Date/Time Associated Diagnosis Comments HM PAP/HPV Routine 10/09/2018 12:00 AM EDT documented in this encounter Results * Hm Pap Smear (10/09/2018 12:00 AM EDT) us Historical Provider HEALTH MAINTENANCE Final Result [facility] [address] [place] [address] [phone] documented in this encounter Visit Diagnoses Not on filedocumented in this encounter Additional Health Concerns Assessment Noted Time PHQ-9 Depression Total Score: 0 11/30/19 23 2:40 PM EDT documented as of this encounter Care Teams Oil Prospecting Observer Relationship Specialty Start Date End Date Lucía Nixon MD [address] [place] [phone] PCP - General Internal Medicine 12/30/22 documented as of this encounter
--- OUTSIDE RECORDS SUMMARY | 2025-03-13 19:58 | XMS_ITS | Encounter Summary ---
Author Organization [employer] Address [address] [facility] [address] [place] [address] Care Team Providers Care Management Professional Name Role Phone Alta Martinez ORNAMENTAL IRONWORKING SUPERVISOR Primary Care Provider Lucía Belle MD Primary Care Pro vider Reason for Visit * Reason Onset Date Comments call back 07/29/2022 Encounter Details Date Type Department Care Team (Late Contact Info) Description 07/29/2022 Telephone [facility] MED[facility]INE [address] [place] [address] Alta Martinez FNP call back Social History [...] Care Team (Late st Contact Info) Description 05/26/2025 11:15 AM EST Office Visit [facility] [address] [place] [address] Lucía Nixon MD [address] [place], [place] [phone] documented as of this encounter Visit Diagnoses Not on filedocumented in this encounter Care Teams Management Professional Relationship Specialty Start Date End Date Alta Martinez FNP PCP - General Family Medicine 02/14/22 12/29/22 Lucía Nixon MD [address] [place], [place] [phone] PCP - General Internal Medicine 12/30/22 documented as of this encounter
--- OUTSIDE RECORDS SUMMARY | 2025-03-13 19:58 | XMS_ITS | Encounter Summary ---
Author Organization [email or web address] Address [address] [place] [address] Care Team Providers Care Tool Crib Manager Name Role Phone Lucía Nixon MD Primary Care Pro vider Encounter Details Date Type Department Care Team (Late st Contact Info) Description 11/24/2023 Orders Only [facility] MED[facility]INE [address] [place] [address] Provider, MD Amairani Social History Tobacco Use [...] Description 05/26/2025 11:15 AM EST Office Visit [facility] [address] [place] [address] Lucía Nixon MD [address] [place] [address] documented as of this encounter Procedures Procedure [...] documented as of this encounter Care Teams Tool Crib Manager Relationship Specialty Start Date End Date Lucía Nixon MD [address] [place] [phone] PCP - General Internal Medicine 12/30/22 documented as of this encounter
--- OUTSIDE RECORDS SUMMARY | 2025-03-13 19:58 | XMS_ITS | Clinical Summary ---
Author Organization [facility] Address [address] [place] [address] [place] [phone] Phone Care Team Providers Care Bow Making Machine Operator Name Role Phone Dave JimP-Karin Primary Care [...] ID:Not on file Type:Not on file Address[address] [address] Medicaid [place] Member Subscriber Plan / Payer (Ef fective 2020-Present) Name:Cheli Wilks Relation to Subscriber:Self Name:Cheli Wilks Payer ID:Not on file Group ID:Not on file Type:Not on file Address: [place] [id number] Care Teams Bow Making Machine Operator Relationship Specialty Start Date End Date Dave Jim, SISAL PICKER-C PCP - General Nurse Practitioner 09/07/20
--- OUTSIDE RECORDS SUMMARY | 2025-03-13 19:58 | XMS_ITS | Clinical Summary ---
Author Organization [email or web address] Address [address] [facility] 7[address] [place] [address] Care Team Providers Care Asphalt Heater Tender Name Role Phone Lucía Nixon MD Primary [...] OR COUGH. 60.3 g 09/17/19 24 Active levothyroxine (Synthroid, Levoxyl) 75 MCG [...] 4 tablet 5 07/19/19 25 026 Active Icosapent Ethyl (Vascepa) 1 g capsule Take 2 capsules (2 g) by mouth with breakfast and with evening meal. 120 capsule 3 09/28/19 25 026 Active cholecalciferol (Vitamin D-3) 50 MCG (1999 UT) tabletIndicatio ns:Vitamin D deficiency TOME ARIANA TABLETA TODOS LOS D 90 tablet 1 09/28/19 25 Active loratadine (Claritin) 10 MG tablet TAKE 1 TABLET BY MOUTH EVERY DAY NEEDED 90 tablet 1 10/07/19 25 Active Wixela Inhub 250-50 MCG/ACT aerosol powder TAKE 1 PUFF BY MOUTH TWICE A DAY FOR ASTHMA/COPD 09/30/19 25 Active montelukast (Singulair) 10 MG tablet TAKE 1 TABLET (10 MG) BY MOUTH IN THE EVENING 90 tablet 1 11/23/19 25 Active omeprazole (PriLOSEC) [address] capsuleIndicati ons:Gastroesoph ageal reflux disease, unspecified whether esophagitis present Take 1 capsule (20 mg) by mouth if needed each day (GERD). Please only give to pt if requesting refills , pt taking only PRN thanks 90 capsule 11/23/19 25 Active tiZANidine (Zanaflex) 4 MG tablet 11/30/19 25 Active calcium carbonate 1500 (600 Ca) MG tablet TAKE 1 TABLET (600 MG) BY MOUTH WITH BREAKFAST AND WITH EVENING MEAL. 180 tablet 2 03/02/20 25 Active calcium carbonate (Calcium 600) 600 MG tablet Take 1 tablet (600 mg) by mouth with breakfast and with evening meal. 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 Allergic rhinitis 01/20/2024 Osteoporosis 01/20/2024 Lower extremity edema 01/20/2024 Obesity (BMI 30-39.9) 12/03/2023 Insomnia 12/03/2023 Chronic right-sided low back pain without sciati ca 12/03/2023 Right shoulder pain 12/03/2023 Hepatic steatosis 12/01/2022 Overview (12/01/2022): Present on US on 09/19/22 Stress incontinence of urine 12/01/2022 Overview (12/30/2022): Recommend kemiguels Pt states she is happy to use [...] EST): BV swab from last week at [facility] [place] showed Gardnerella Vaginalis Given that patient is symptomatic now, I will rx metronidazole bid x 7d. Counseled to avoid use of panty liners, indiscriminate use of abs or vaginal douches FU prn Depressive disorder 04/12/2015 12/03/19 Lumbago with sciatica 04/12/20152023 Overview (12/30/2022): Also [...] Encounters Date Type Department Care Team Description 03/04/[address] [address] Lucía Nixon MD Dec. recall 03/01/[address] [address] Lucía Nixon MD 02/24/[address] [address] Lucía Nixon MD [facility] (I informed the patient that an order for a Tspot, was sent to the [facility] lab. She stated that she would have them done this afternoon. The results are being requested by [facility].) 02/24/2025 Orders Only [facility] [place] [address] Fiona Petit, RN Screening for tuberculosis 02/18/2025 1:15 PM EDT Office Visit [address] [address] Lucía Nixon MD Parotid nodule (Primary Dx); Vertigo; Health care maintenance; Memory loss; Obesity (BMI 30-39.9); Poor memory 02/18/2025 Results Follow-Up [address] [address] Lucía Nixon MD XR CERVICAL SPINE 3V 02/18/2025 Orders Only [address] [place] [address] Lucía Nixon MD 02/18/2025 Travel 02/17/[address] [facility] [address] [place] [address] Lucía Nixon MD chartprep 12/27/2024 Results Follow-Up [facility] [address] [place] [address] Lucía Nixon MD MR Brain w/o Contrast from Last 3 Months Immunizations Immunization Administration [...] 02/18/2025 1:16 PM EDT Plan of Treatment Upcoming Encounters Date Type Department Care Team (Late st Contact Info) Description 05/26/2025 11:15 AM EST Office Visit [facility] [address] [place] [address] Lucía Nixon MD [address] [place] [address] Health Maintenance Due Date Last [...] 11/26/2025 11/26/2024 Depression Screening 12/03/2025 12/03/2024, 12/04/19 25 Tobacco Screening 02/18/2026 02/18/2025 HPV/Cotest 07/16/2028 Pap [...] Procedure Name Priority Date/Time Associated Diagnosis Comments T-SPOT(R).TB Routine 02/24/2025 2:19 PM EDT Screening for tuberculosis XR CERVICAL SPINE 3V Routine 02/18/2025 2:27 [...] Recently Relevant to Health Maintenance Results * T-SPOT??.TB (02/24/2025 2:19 PM EDT) [facility] T Spot TB Negative Negative [facility] Comment:A negative test resu lt does not exclude the possibilityof exposure to or infection with Mycobacteriumtuberculosis (M. tuberculosis). Patients with recentexposure to TB infected individuals exhibiting anegative T-SPOT.TB result should be considered forretesting within 6 weeks or if other relevant clinicalsymptoms indicate. Results from T-SPOT.TB testing mustbe used in conjunction with each individual'sepidemiological history, current medical status,and results of other diagnostic evaluations.The T-SPOT.TB test is qualitative and results arereported as positive, borderline, or negative, giventhat the test controls perform as expected. In linewith the Centers for Disease Control and Prevention's2010 recommendation to report quantitative measurementsalongside the qualitative result, the laboratoryprovides spot counts for informational purposes only.The T-SPOT.TB test should not be interpreted as aquantitative test. TS PANEL A 0 [facility] TS PANEL B 0 [facility] Negative Control Passed [facility] Positive Control Passed [facility] Comment:For additional infor antonio, please refer tohttp://education.[facility]/faq/TDO650(This link is being provided for informational/educational purposes only.)THIS TEST WAS PERFORMED AT:[employer] [id number] [place] [address]UNWGCZEDION DAVIS MD,PHD 02/24/2025 2:19 PM EDT 02/24/2025 4:03 PM EDT us Lucía Good MD LAB BLOOD ORDERAB LES Final Result [facility] [address] [place] [phone] * XR CERVICAL SPINE 3V (02/18/2025 2:27 PM EDT) Anatomical Region Laterality Modality Abdomen Radiographic Asya ging 02/18/2025 2:27 PM EDT Narrative 02/18/2025 3:24 PM EDT [address] [address] XRay Report Signed Patient: Cheli Wilks MR#: [id number] 971 : 1960 Acct:[id number] Age/Sex: 64 / F ADM Date: 02/18/25 Loc: HO.HHCX Attending Dr: Lucía Good MD Ordering Physician: Lucía Nixon MD Date of Service: 02/18/25 Procedure(s): XR cervical spine 3V Accession Number(s): [id number] cc: Lucía Nixon MD EXAMINATION: XR CERVICAL [...] 02/18/25 1520 DD/ 1427 TD/TT: 02/18/25 1500 Splicer Helper: Procedure Note Donotuseinterpreter, Image - 02/18/2025 [place] [address] XRay Report Signed Patient: Edy Wilks#: [id number] 971 : 8Acct:[id number] Age/Sex: 64 / FADM Date: 02/18/25 Loc: HO.HHCX Attending Dr: Lucía Good MD Ordering Physician: Lucía Nixon MD Date of Service: 02/18/25 Procedure(s): XR cervical spine 3V Accession Number(s): [id number] cc: Lucía Nixon MD EXAMINATION: XR CERVICAL [...] 02/18/25 1520 DD/ 1427 TD/TT: 02/18/25 1500 Splicer Helper: Lucía Good MD IMG XR PROCEDURES Final Result * MR Brain w/o Contrast (12/27/2024 11:11 AM EDT) Anatomical Region Laterality Modality Brain Magnetic Resonan ce 12/27/2024 11:1 1 AM EDT Narrative 12/27/2024 11:13 AM EDT [place] [address] Magnetic Resonance Report Signed Patient: Cheli Wilks MR#: [id number] 971 : 1960 Acct:[id number] Age/Sex: 64 / F ADM Date: 12/26/24 Loc: HO.MRI Attending Dr: Lucía Good MD Ordering Physician: Lucía Nixon MD Date of Service: 12/26/24 Procedure(s): MR head/brain wo con Accession Number(s): [id number] cc: Lucía Nixon MD CLINICAL HISTORY: pt [...] 12/27/24 1112 DD/ 1111 TD/TT: 12/27/24 1111 Splicer Helper: Procedure Note Donotuseinterpreter, Image - 12/27/[address] [address] Magnetic Resonance Report Signed Patient: Edy Wilks#: [id number] 971 : 8Acct:[id number] Age/Sex: 64 / FADM Date: 12/26/24 Loc: HO.MRI Attending Dr: Lucía Good MD Ordering Physician: Lucía Nixon MD Date of Service: 12/26/24 Procedure(s): MR head/brain [facility] Accession Number(s): [id number] cc: Lucía Nixon MD CLINICAL HISTORY: pt [...] 12/27/24 1112 DD/ 1111 TD/TT: 12/27/24 1111 Splicer Helper: us Lucía Good MD IMG MRI PROCEDURE S Final Result * BI Mammogram Screening Tomosynthesis Bilateral (06/14/2024 2:30 PM EST) Anatomical Region Laterality Modality Breast Bilateral Mammography 06/14/2024 2:30 PM EST Narrative 06/28/2024 1:33 PM EST [facility] [address] [place], [place] [address] Mammography Report Signed Patient: Cheli Wilks MR#: [id number] 971 : 1960 Acct:[id number] Age/Sex: 63 / F ADM Date: 06/14/24 Loc: HO.MAMMO Attending Dr: Lucía Good MD Ordering Physician: Lucía Nixon MD Re sults: 1Negative Date of Service: 06/14/24 Follow Up: 1 Year From Orig inal Mammogram Procedure(s): MM tomosynthesis screening BI Accession Number(s): [id number] cc: Lucía Nixon MD EXAMINATION: MM SCREENING [...] 06/28/24 1330 DD/ 1430 TD/TT: 06/14/24 1450 Splicer Helper: Procedure Note Donotuseinterpreter, Image - 06/28/2024 [facility] [address] Suárez, [place] [address] Mammography Report Signed Patient: Edy Wilks#: [id number] 971 : 8Acct:[id number] Age/Sex: 63 / FADM Date: 06/14/24 Loc: HO.MAMMO Attending Dr: Lucía Good MD Ordering Physician: Lucía Nixon sults: 1Negative Date of Service: 06/14/24Follow Up: 1 Year From Orig inal Mammogram Procedure(s): MM tomosynthesis screening BI Accession Number(s): [id number] cc: Lucía Nixon MD EXAMINATION: MM SCREENING [...] by: Kaykay Fernandez DO 06/28/2024 01:30 PM [facility] Dictated By: Kaykay Fernandez DO Signed By: <Electronically signed by Kaykay Fernandez DO in OV> 06/28/24 1330 DD/ 1430 TD/TT: 06/14/24 1450 Splicer Helper: Lucía Good MD [facility] [place] PROCEDURES Edited Result - Final * Lipid Panel, Standard (01/15/2024 8:56 AM EDT) Triglycerides 79 <150 mg/dL [facility] Comment:Desirable Triglyceri de: less than 150 mg/dLBorderline High Triglyceride 150-199 mg/dLHigh Triglyceride: 200-499 mg/dLVery High Triglyceride: greater than or equal to 5OO mg/dL Cholesterol 162 <200 mg/dL [facility] Comment:Desirable Cholestero l: less than 200 mg/dLBorderline High Cholesterol: 200-239 mg/dLHigh Cholesterol: greater than 239 mg/dL LDL Cholesterol Calculated 98 <100 mg/dL [facility] Comment:Desirable LDL: less than 100 mg/dLNear Optimal/Above Optimal LDL: 110- 129 mg/dLBorderline High LDL: 130-159 mg/dLHigh LDL: 160-189 mg/dLVery High LDL: greater than or equal to 190 mg/dL HDL Cholesterol 49 >40 mg/dL [facility] Comment:Desirable HDL: great er than 40 mg/dL Note: This HDL assay may give artificially low results in patients with liver disease. Blood Venous blood specimen / Unknown 01/15/2024 8:56 AM EDT 01/15/2024 11:14 AM EDT us Lucía Good MD LAB BLOOD ORDERAB LES Final Result Performing Organization Address [facility] Co de Phone Number [facility] [address] [place] [phone] * Hepatitis C Antibody with Reflex to HCV, RNA, Quantitative, Real-Time PCR (01/15/2024 8:46 AM EDT) Hepatitis C Antibody Nonreactive Nonreactive [facility] Comment:Antibodies to HCV no t detected; does not exclude early acuteHCV infection. Blood Venous blood specimen / Unknown 01/15/2024 8:46 AM EDT 01/15/2024 11:14 AM EDT us Lucía Good MD LAB BLOOD ORDERAB LES Final Result Performing Organization Address City/[facility]/ZIP Co de Phone Number [facility] [address] [place] [phone] * Pap Smear (07/16/2023 3:14 PM EST) 07/16/2023 3:14 PM EST 07/17/2023 8:00 AM EST [place] [facility] - 08/01/2023 3:14 PM EST ----- ------- Name: Cheli Wilks Age/Sex: 63/F : 1960 Unit#: [id number] Attend Dr: Kanwal Horta CNM Re07/16/23 Status: DEP REF Location: HO.LNP Disch: ----- ------- SPEC : [id number] RECD: 07/17/23 STATUS: CHRISTELLE MCKNIGHT NUM: [id number] SHIRA: 07/16/[address] [facility] [address]: Kanwal Horta CNM ENTERED: 07/17/23-110 SP TYPE: Pap Lio DAVENPORTHR DR: Alta Martinez RECREATION THERAPY DIRECTOR ORDERED: Pap Smear Interpretation Satisfactory for evaluation. Negative for intraepithelial lesion or malignancy. HPV mRNA E6/E7: NOT DETECTED This assay detects E6/E7 viral messenger RNA (mRNA) from 14 high-risk HPV types (16, 18, 31, 33, 35, 39, 45, 51, 52, 56, 58, 59, 66, 68) HPV testing performed by [employer], [place], [place]. See reference laboratory portion of the EMR for entire report. Clinical Information LMP: Postmenopausal Previous PAP test: 2019, WNL Material Received ThinPrep-Cervical Copies To: Kanwal Horta [address] [place] [address] Alta Martinez RECREATION THERAPY DIRECTOR [address] [place] [address] ----- ------- Signed (signature on file) ZAIN Ochoa (ASCP) 08/01/23 1514 ----- ------- END OF REPORT Generic External Data Provider LAB CYTOLOGY CJ ALEXANDER Final Result [facility] [address] [place], [place] [phone] * Hm Colonoscopy (02/26/2019 12:21 PM EDT) Historical Provider HEALTH MAINTENANCE Final Result from Last 3 Months or Most Recently Relevant to Health Maintenance Insurance [address] [place] [phone] [employer] (HMO D-SNP) BILL [place] [phone] Care Teams Asphalt Heater Tender Relationship Specialty Start Date End Date Lucía Nixon MD [address] [place] [phone] PCP - General Internal Medicine 12/30/22
[2025-03-13 21:32] VITALS: BP 109/52; PULSE 64; RESP 16; TEMP 36.7; O2SAT 97
[2025-03-13 21:46] LABS: Appearance Urine Cloudy; Glucose Urine UA Negative (Negative); PH 6.0 (5.0-9.0); Specific Gravity - Urine 1.020 (1.005-1.025); UMIC TRIGGER UACC YES
[2025-03-13 22:00] LABS: UACC Culture Trigger YES
[2025-03-13 23:03] VITALS: BP 109/52; PULSE 64; RESP 16; TEMP 36.7; O2SAT 97
== END 2025-03-13 23:10 | disposition home or self-care (01) ==
PROVIDERS: Registered Nurse Emergency; Emergency Provider Emergency Medicine; PCP Student in an Organized Health Care Education/Training Program
DX: N39.0 Urinary tract infection, site not specified (principal); M54.16 Radiculopathy, lumbar region; M16.0 Bilateral primary osteoarthritis of hip; M54.50 Low back pain, unspecified; Z79.899 Other long term (current) drug therapy
CPT/HCPCS: 72131; 81001; 87086; 96372; 99283; 99284; J1885

== ENCOUNTER → 2025-03-13 20:15 | Outpatient (BNV) | payer OTHER, SELFPAY | PROVIDERS: Emergency Provider Emergency Medicine; PCP Student in an Organized Health Care Education/Training Program; Visit Provider Radiology Diagnostic Radiology | DX: M54.50 Low back pain, unspecified (principal) | CPT/HCPCS: 72131 ==

== ENCOUNTER 2025-05-04 17:25 | Emergency (ER) | payer OTHER, SELFPAY ==
--- NOTE | ~2025-05-04 | XR_ITS ---
CLINICAL HISTORY: chest pain 2 view chest x-ray. Comparison: CR/SR - XR CHEST 2 VIEWS - 10/21/23 16:27 EDT Findings: No consolidation or effusion. No pneumothorax. Normal cardiomediastinal silhouette. IMPRESSION: No acute disease. This document has been electronically signed by: Mihai Trevizo MD on 05/04/2025 20:09:32
--- OUTSIDE RECORDS SUMMARY | 2025-05-04 16:00 | XMS_ITS | Encounter Summary ---
Author Organization [employer] Address [address] [place] [address] Care Team Providers Care Hoop Driving Machine Operator Name Role Phone Lucía Nixon MD Primary Care Pro vider Reason for Visit * Reason Comments Walk-In Neck pain Encounter Details Date Type Department Care Team (Late st Contact Info) Description 05/04/2025 4:00 PM EST Office Visit [facility] [address] [place], [place] [phone] Gustavo Francisco MD [address] [place], [place] [phone] Neck pain on left side (Primary Dx); Chest pain, unspecified type Social History Tobacco Use Types Packs/Day Years [...] Sign Reading Time Taken Comments Blood Pressure 146/81 05/04/2025 4:09 PM EST Pulse 88 05/04/2025 4:09 PM EST Temperature 36.1 C (96.9 F) 05/04/2025 4:09 PM EST Respiratory Rate 18 05/04/2025 4:09 PM EST Oxygen Saturation 96% 05/04/2025 4:09 PM EST Inhaled Oxygen Concentration - - Weight 67.1 kg (148 lb) 05/04/2025 4:09 PM EST Height - - Body Mass Index 32.03 02/18/2025 1:16 PM EDT documented in this encounter Progress Notes * Gustavo Francisco MD - 05/04/2025 4:00 PM ESTAssociated Order(s): ECG 12 lead Pre-Procedure Diagnose(s): Chest pain, unspecified type Post-Procedure Diagnose(s): Chest pain, unspecified type Subjective Patient ID: Cheli Coleman is a 64 y.o. female. Internal Communications Intern: Martha WOLF Cheli has 4 day h/o constant pain in left side of neck, worse when turning head to either side, moving torso. 2 days ago had start of pain radiating to left UE, denies weakness or numbness. Today she had constant onset of retrosternal chest pressure, nothing makes it better or worse. Yesterday had nausea without vomiting. Had SOB last night. No diaphoresis. Tried tizanidine and diclofenac gel without relief. Cervical spine x-ray ordered December 03, 2024 by PCP because of neck pain. Results are not available in [employer] or [employer] Lives with . Not employed. Never smoked. 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 Allergic rhinitis 01/20/2024 Osteoporosis 01/20/2024 Lower extremity edema 01/20/2024 Obesity (BMI 30-39.9) 12/03/2023 Insomnia 12/03/2023 Chronic right-sided low back pain without sciatica 12/03/2023 Right shoulder pain 12/03/2023 Hepatic steatosis 12/01/2022 Stress incontinence of urine 12/01/2022 Hypertriglyceridemia 11/29/2022 Health care maintenance 09/02/2022 Gastroesophageal reflux disease 07/16/2022 Bilateral cataracts 11/06/2021 Hypothyroidism 10/03/2021 Cyst of kidney, acquired 11/03/2020 Chronic obstructive lung disease (HCC) 04/12/2015 Cobalamin deficiency 04/12/2015 The following portions of the chart were reviewed this encounter and updated as appropriate: Tobacco Allergies Meds Problems Med Hx Surg Hx Fam Hx Review of Systems Constitutional: Negative for fever. Respiratory: Positive for shortness of breath. Cardiovascular: Positive for chest pain. Gastrointestinal: Positive for nausea. Negative for abdominal pain and vomiting. Musculoskeletal: Positive for arthralgias and neck pain. Skin: Negative for rash. Neurological: Negative for headaches. Objective Physical Exam Constitutional: Appearance: Normal appearance. HENT: Right Ear: Tympanic membrane, ear canal and external ear normal. Left Ear: Tympanic membrane, ear canal and external ear normal. Nose: Nose normal. Mouth/Throat: Mouth: Mucous membranes are moist. Pharynx: Oropharynx is clear. Eyes: Conjunctiva/sclera: Conjunctivae normal. Pupils: Pupils are equal, round, and reactive to light. Cardiovascular: Rate and Rhythm: Normal rate and regular rhythm. Pulses: Radial pulses are 2+ on the left side. Heart sounds: No murmur heard. Pulmonary: Effort: Pulmonary effort is normal. Breath sounds: Normal breath sounds. Musculoskeletal: General: Normal range of motion. Cervical back: No tenderness. Comments: Mild tenderness over left lateral neck. Skin: Findings: No rash. Neurological: Mental Status: She is alert. Sensory: Sensation is intact. Motor: Motor function is intact. Gait: Gait is intact. Psychiatric: Mood and Affect: Mood normal. Behavior: Behavior normal. ECG 12 lead Date/Time: 05/04/2025 4:48 PM Performed by: Gustavo Francisco MD Authorized by: Gustavo Francisco MD Previous ECG: Previous ECG: Compared to current Similarity: No change Interpretation: Interpretation: normal Rate: ECG rate: 80 ECG rate assessment: normal Rhythm: Rhythm: sinus rhythm Ectopy: Ectopy: none QRS: QRS axis: Normal QRS intervals: Normal QRS conduction: normal ST segments: ST segments: Normal T waves: T waves: normal Q waves: Abnormal Q-waves: not present Assessment/Plan Diagnoses and all orders for this visit: Chest pain, unspecified type EKG: normal. Given aspirin 324 mg p.o. in exam room. Referred to ED now for further evaluation. - ECG 12 lead - aspirin chewable tablet 324 mg Neck pain on left side Presumptive mechanical neck pain. Can be further evaluated in ED . Rtc if not improving. documented in this encounter Plan of Treatment Upcoming Encounters Date Type Department Care Team (Late st Contact Info) Description 05/26/2025 11:15 AM EST Office Visit [facility] [address] [place] [address] Lucía Nixon MD [address] [place] [phone] Pending Results Name Type Priority Associated Diagnoses Date /Time ECG 12 lead ECG Routine Chest pain, unspecified type 05/04/2025 5:09 PM EST documented as of this encounter Procedures Procedure Name Priority Date/Time Associated Diagnosis Comments ECG 12-LEAD Routine 05/04/2025 5:09 PM EST Chest pain, unspecified type documented in this encounter Visit Diagnoses Diagnosis Neck pain on left side- Primary Chest pain, unspecified type documented in this encounter Administered Medications Inactive Administered Medications - up to 3 most recent administrations Medication Order MAR Action Action Date Dose Rate Site aspirin chewable tablet 324 mg 324 mg, Oral, Once, On Fri05/04/25 at 1700, For 1 doseIndications:Chest pain, unspecified type Given 05/04/2025 5:02 PM EST 324 mg documented in this encounter Additional Health Concerns Assessment Noted Time PHQ-9 Depression Total Score: 0 12/04/19 1:27 PM EDT documented as of this encounter Care Teams Hoop Driving Machine Operator Relationship Specialty Start Date End Date Lucía Nixon MD [address] [place] [address] PCP - General Internal Medicine 12/30/22 documented as of this encounter
[2025-05-04 17:36] VITALS: BP 142/113; PULSE 85; RESP 18; TEMP 36.7; O2SAT 95; BMI 32.4
--- NOTE | 2025-05-04 17:36 | ED.GENADULT ---
HPI - General Adult General Chief complaint: General Medical Stated complaint: increased bp (sent by ) Time Seen by Provider: 05/04/25 19:01 History of Present Illness ED Provider: Daja WOLF narrative: The patient is a 64-year-old woman with a history of fibromyalgia. She says that she has had some chest pain and left shoulder pain for about 4 days. Today she had a psychotherapy appointment at the [facility]. She says that because she was at the [facility] she went to the medical clinic after she finished her therapy session and explained that she has been having 4 days of left shoulder pain and some chest pain and some left neck pain and a headache. Apparently they checked her blood pressure and it was elevated and referred her to the emergency room. She has had no fever, sweats, chills. No stiff neck. No unilateral numbness, tingling, weakness, burning in her extremities. No shortness of breath. No abdominal pain, nausea, vomiting. Related Data Home Medications ?Medication ?Instructions ?Recorded ?Confirmed loratadine 10 mg tablet 10 mg PO DAILY 05/03/21 12/28/24 montelukast 10 mg tablet 10 mg PO DAILY 05/03/21 12/28/24 (Singulair) omeprazole 20 mg capsule,delayed 20 mg PO DAILY 05/03/21 12/28/24 release alendronate 70 mg tablet mg PO 07/21/24 12/28/24 cholecalciferol (vitamin D3) 50 50 mcg PO DAILY 07/21/24 12/28/24 mcg (2,000 unit) capsule levothyroxine 75 mcg tablet mcg PO DAILY 07/21/24 12/28/24 Previous Rx's ?Medication ?Instructions ?Recorded albuterol sulfate 90 mcg/actuation 2 puff inhalation Q4-6H PRN 06/28/24 aerosol inhaler shortness of breath or wheezing 30 days #8.5 grams clobetasol 0.05 % topical cream 1 appl topical BID 5 days #45 grams 09/13/24 tizanidine 4 mg tablet 4 mg PO BID PRN muscle spasm #60 11/23/24 tabs ketorolac 10 mg tablet 10 mg PO Q6H PRN pain #20 tabs 03/13/25 methylprednisolone 4 mg tablets in 4 mg PO QAM #21 ea 09/21/25 a dose pack (Medrol (Iftikhar)) nitrofurantoin 100 mg PO Q12H 7 days #14 caps 03/13/25 monohydrate/macrocrystals 100 mg capsule (Macrobid) tizanidine 6 mg capsule 6 mg PO Q8H PRN pain, moderate #15 03/13/25 caps fluticasone 250 mcg-salmeterol 50 1 inh inhalation BID ASTHMA/COPD 04/01/25 mcg/dose blistr powdr for 30 days #60 ea inhalation (Wixela Inhub) acetaminophen 500 mg capsule 1,000 mg (2 x 500 mg) PO Q8H PRN 05/04/25 fever or pain #14 caps ibuprofen 400 mg tablet 400 mg PO Q6H PRN pain #14 tabs 05/04/25 Allergies Allergy/AdvReac Type Severity Reaction Status Date / Time tramadol (TRAMADOL) Allergy Unknown NAUSEA & Verified 05/04/25 17:37 VOMITING, nausea and vomiting codeine (CODEINE) AdvReac Severe NAUSEA & Verified 05/04/25 17:37 VOMITING Codeine Sulfate Allergy Unknown stomach Uncoded 05/04/25 17:37 upset Review of Systems Review of Systems: Yes all other systems are reviewed and are negative PMFSH Past Medical History Medical History Lumbar degenerative disc disease Sacroiliac joint pain Vulvar leukoplakia Osteoporosis HLD (hyperlipidemia) Vertigo GERD (gastroesophageal reflux disease) Hepatic steatosis COPD (chronic obstructive pulmonary disease) Allergic rhinitis Asthma Depression Anxiety Fibromyalgia Hypothyroidism Surgical History Hx of cholecystectomy Hx of tubal ligation Family History Family History Mother Asthma Brother HTN (hypertension) Son HTN (hypertension) Social History Social History Household Members: Spouse Housing: Apartment Alcohol intake: never Patient Tobacco Use Status: Never used Tobacco Current occupational status: unemployed Sexual orientation: Straight/Heterosexual Gender identity: Female Physical Exam ED Vital Signs: Vital Signs - 24 hr 05/04/25 17:36 05/04/25 18:25 05/04/25 19:28 Temperature 98.1 F 98.2 F 98.3 F Pulse Rate 85 74 74 Respiratory Rate 18 12 12 Blood Pressure 142/113 H 135/61 112/52 L Pulse Oximetry 95 96 96 Oxygen Delivery Method Room Air Room Air Room Air 05/04/25 21:53 05/04/25 22:30 Temperature 98.0 F 98.0 F Pulse Rate 70 70 Respiratory Rate 12 12 Blood Pressure 117/64 117/64 Pulse Oximetry 96 96 Oxygen Delivery Method Room Air Room Air BMI result Body Mass Index 32.4 Const Other: the patient is a 64-year-old woman who was awake and alert. She is pleasant cooperative. She does not appear uncomfortable. HENMT Other: The face is symmetrical. Mucous membranes moist. Eyes Other: Pupils are round equal, conjunctivae are clear, extraocular movements intact Neck Other: There is some left-sided tenderness with palpation of the musculature of the left posterior neck. However there is no nuchal rigidity and she can easily touch her chin to her chest. Chest Other: There is anterior chest wall tenderness Resp Effort & Inspection: normal respiratory effort Auscultation: clear to auscultation bilaterally Cardio Rate: regular rate Rhythm: regular rhythm Heart sounds: S1 normal heart sound present and S2 normal heart sound present GI Other: Abdomen is soft and nontender Back/Spine/Pelvis Other: the patient had a lot of tenderness with palpation of the muscles around the left scapula. Palpation seemed to reproduce her pain. Skin Other: The skin is dry and unremarkable General skin exam: no rashes or lesions noted, elasticity normal and turgor normal Neuro Other: the patient his awake, alert, oriented, appropriate. Mental status is normal. Demeanor seems nontoxic and cheerful. Neck is supple. Pupils are small, round, equal, extraocular movements are intact. Face is symmetrical. Speech is clear. She has intact strength in all extremities. No pronator drift. She has a nonfocal neurological exam with NIH stroke scale of 0. Extrem Other: There is no calf swelling or tenderness. No asymmetry. No peripheral edema. Course Course Course Narrative: This is a Rapid Medical Examination (RME) performed by Jenise Lane PA-C in triage. Full HPI, ROS, assessment and treatment plan per primary provider in the Main ED. Hx: 64 yo F here for eval of L sided neck pain, worse w/ head movements x4 days, pain began radiating to LUE 2 days ago. no numbness/weakness. now having chest prssure, no relieving or exacerbating factors. +nausea, no vomiting. +sob last night. tried tizanidine and diclofenac gel. saw pcp in November 2024, had xray c spine showing degenerative changes. seen at walk in today - noted to have very elevated BP, she was given 4 aspirin and told to come to the ED. Plan: labs, ekg Medications Administered Discontinued Medications Generic Name Dose Route Start Last Admin Trade Name Dereck PRN Reason Stop Dose Admin Acetaminophen 975 mg 05/04/25 19:26 05/04/25 19:51 Acetaminophen 325 Mg Tablet PO 05/04/25 19:27 975 mg ONCE ONE Administration Ketorolac Tromethamine 30 mg 05/04/25 19:26 05/04/25 19:51 Ketorolac Tromethamine 30 Mg/Ml Vial IM 05/04/25 19:27 30 mg ONCE ONE Administration Medical Decision Making Medical Decision Making [facility] Narrative: the patient is a 64-year-old female with no history of known vascular disease who went to what I believe was in urgent care portion of the [facility] today after first seeing her psychotherapist at the [facility]. she says that she went to the urgent care portion of the [facility] because she has been having some back pain for the last 4 days. I think she also mentioned that maybe she had a headache and some chest pain and some left-sided neck pain as well. Apparently her blood pressure was elevated and she was sent here. Here the patient does not appear acutely ill. She seems to have very reproducible muscular tenderness with palpation in the region of the left scapula. She has an unremarkable EKG. Chest x-ray is unremarkable. She has negative troponins. My suspicion for an acute coronary syndrome is low. She was given an injection of ketorolac with improvement of her pain. She may be discharged with acetaminophen and ibuprofen and should follow up with her PCP return to the ER if worse. Lab Data 05/04/25 17:56 05/04/25 17:56 Labs: Lab Results 05/04/25 05/04/25 Range/Units 17:56 19:43 WBC 7.1 (4.8-10.8) X10*3/uL RBC 4.41 (4.20-5.50) X10*6/uL Hgb 13.4 (12.0-16.0) g/dl Hct 40.3 (37.0-47.0) % MCV 91.4 (80.0-98.0) fL MCH 30.4 (27.0-33.0) pg MCHC 33.3 (31.0-35.0) g/dl RDW 13.8 (11.0-16.0) % Plt Count 195 (160-400) X10*3/uL MPV 11.9 (9.4-12.3) fL Immature Gran % (Auto) 0.3 (0.0-0.4) % Neut % (Auto) 48.5 (45-73) % Lymph % (Auto) 41.6 H (20-40) % [place] % (Auto) 6.8 (2-11) % Eos % (Auto) 2.1 (0-4) % Baso % (Auto) 0.7 (0-2) % Lymph # (Auto) 2.9 (1.2-4.9) X10*3/uL [place] # (Auto) 0.5 (0.1-1.2) X10*3/uL Eos # (Auto) 0.2 (0.0-0.4) X10*3/uL Baso # (Auto) 0.1 (0.0-0.2) X10*3/uL Abs Immat Gran (auto) 0.02 (0.00-0.03) X10*3/uL Absolute Neuts (auto) 3.4 (2.0-8.3) x10*3/uL Absolute Nucleated RBC 0.000 (0.0-0.012) X10*3/uL Nucleated RBC % (auto) 0.0 (0.0-0.2) /100WBC Sodium 144 (135-145) mmol/L Potassium 3.7 (3.3-5.1) mmol/L Chloride 109 H (96-108) mmol/L Carbon Dioxide 29 (22-29) mmol/L Anion Gap 10 L (12-20) BUN 18 H (9-16) mg/dL Creatinine 0.61 (0.5-1.4) mg/dL Estim Creat Clear Calc 72.0 Estimated GFR > 60 Random Glucose 88 (60-115) mg/dL Calcium 8.9 (8.4-10.2) mg/dL Magnesium 1.9 (1.6-2.6) mg/dL Total Bilirubin 0.5 (0.0-1.0) mg/dL AST 27 (5-31) U/L ALT 32 H (0-31) U/L Alkaline Phosphatase 62 (39-117) U/L Troponin I High Sens < 2.7 < 2.7 (<3.5-17.0) ng/L NT-Pro-B Natriuret Pep 26.6 (<300) pg/mL Total Protein 7.5 (6.5-8.0) g/dL Albumin 4.4 (3.5-5.0) g/dL Lipase 35 (8-78) U/L Discharge Plan Discharge Clinical Impression: Pain of left scapula, Chest pain Patient Disposition: Home, Self-Care Instructions: Chest Pain (ED) Additional Instructions: Your testing in the emergency room today seems very reassuring. I think that your pains are largely muscular pains. You may use ibuprofen and acetaminophen as needed for discomfort. I have sent prescriptions for these medications to your pharmacy. Please follow up soon with your regular doctor for a second opinion and re-evaluation. Return to the emergency room if you feel significantly worse. Prescriptions: New ibuprofen 400 mg tablet 400 mg PO Q6H PRN (Reason: pain) Qty: 14 0RF acetaminophen 500 mg capsule 1,000 mg PO Q8H PRN (Reason: fever or pain) Qty: 14 0RF No Action clobetasol 0.05 % cream 1 appl topical BID 5 Days Qty: 45 0RF Rx Instructions: Then maintenance therapy for 2-3 times per week tizanidine 4 mg tablet 4 mg PO BID PRN (Reason: muscle spasm) Qty: 60 2RF fluticasone propion-salmeterol [Wixela Inhub] 250-50 mcg/dose blister with device 1 inh inhalation BID 30 Days Qty: 60 5RF tizanidine 6 mg capsule 6 mg PO Q8H PRN (Reason: pain, moderate) Qty: 15 0RF methylprednisolone [Medrol (Iftikhar)] 4 mg tablets,dose pack 4 mg PO QAM Qty: 21 0RF Rx Instructions: Take per package instructions ketorolac 10 mg tablet 10 mg PO Q6H PRN (Reason: pain) Qty: 20 0RF Rx Instructions: maximum total duration of 5 days from all oral, intranasal, or parenteral formulations. The patient received an intramuscular dose of Toradol here in the emergency room nitrofurantoin monohyd/m-cryst [Macrobid] 100 mg capsule 100 mg PO Q12H 7 Days Qty: 14 0RF Rx Instructions: must administer with a meal/food montelukast [Singulair] 10 mg tablet 10 mg PO DAILY loratadine 10 mg tablet 10 mg PO DAILY omeprazole 20 mg capsule,delayed release(DR/EC) 20 mg PO DAILY albuterol sulfate 90 mcg/actuation HFA aerosol inhaler 2 puff inhalation Q4-6H PRN (Reason: shortness of breath or wheezing) 30 Days Qty: 8.5 5RF alendronate 70 mg tablet PO cholecalciferol (vitamin D3) 50 mcg (2,000 unit) capsule 50 mcg PO DAILY levothyroxine 75 mcg tablet PO DAILY Referrals: Lucía Nixon MD [Primary Care Provider, Internal Medicine] Interventions: ED Discharge Assessment Last Done: 05/04/25 22:30 Discharge Date/Time: 05/04/25 22:30 Print Language: Gibraltarian
--- NOTE | 2025-05-04 17:41 | ECG_ITS ---
Test Reason : cp Blood Pressure : */* mmHG Vent. Rate : 80 BPM Atrial Rate : 80 BPM P-R Int : 146 ms QRS Dur : 84 ms QT Int : 394 ms P-R-T Axes : 61 34 50 degrees QTcB Int : 454 ms Normal sinus rhythm Normal ECG When compared with ECG of 25-Feb-2020 09:20, No significant change was found Referred By: Ghislaine Lane Electronically Signed By: LENORA HESS MD
[2025-05-04 18:03] LABS: MANUAL DIFF FLAG NO
[2025-05-04 18:18] LABS: Alanine Aminotransferase 32 U/L (0-31); Albumin Level 4.4 g/dL (3.5-5.0); Alkaline Phosphatase 62 U/L (39-117); Anion Gap 10 (12-20); Aspartate Amino Transferase 27 U/L (5-31); Blood Urea Nitrogen 18 mg/dL (9-16); Calcium 8.9 mg/dL (8.4-10.2); Carbon Dioxide 29 mmol/L (22-29); Chloride 109 mmol/L (96-108); Creatinine Clr Calc Pharmacy 72.0; Estimated Glomerular Filt Rate > 60; Lipase 35 U/L (8-78); Magnesium 1.9 mg/dL (1.6-2.6); Potassium 3.7 mmol/L (3.3-5.1); Sodium 144 mmol/L (135-145); Total Protein 7.5 g/dL (6.5-8.0)
[2025-05-04 18:25] VITALS: BP 135/61; PULSE 74; RESP 12; TEMP 36.8; O2SAT 96
[2025-05-04 18:28] LABS: Troponin-I High Sensitivity < 2.7 ng/L (<3.5-17.0)
[2025-05-04 19:09] LABS: Hematocrit 40.3 % (37.0-47.0); Hemoglobin 13.4 g/dl (12.0-16.0); Imm Gran Abs Auto 0.02 X10*3/uL (0.00-0.03); Imm Gran Pct Auto 0.3 % (0.0-0.4); Lymphocytes Absolute Auto 2.9 X10*3/uL (1.2-4.9); Mean Corpuscular HGB Conc 33.3 g/dl (31.0-35.0); Mean Corpuscular Hemoglobin 30.4 pg (27.0-33.0); Mean Corpuscular Volume 91.4 fL (80.0-98.0); NRBC Abs Auto 0.000 X10*3/uL (0.0-0.012); NRBC Pct Auto 0.0 /100WBC (0.0-0.2); Platelet Count 195 X10*3/uL (160-400); Red Blood Count 4.41 X10*6/uL (4.20-5.50); White Blood Count 7.1 X10*3/uL (4.8-10.8)
--- OUTSIDE RECORDS SUMMARY | 2025-05-04 19:11 | XMS_ITS | Encounter Summary ---
Author Organization [employer] Address [address] [place] [address] Care Team Providers Care High School Football Coach Name Role Phone Lucía Nixon MD Primary Care Pro vider Encounter Details Date Type Department Care Team (Late st Contact Info) Description 11/24/2023 Orders Only [facility] [address] [place] [address] Provider, MD Amairani Social History Tobacco Use [...] Description 05/26/2025 11:15 AM EST Office Visit [facility] [address] [place] [phone] Lucía Nixon MD [address] [place] [address] documented as of this encounter Procedures Procedure [...] documented as of this encounter Care Teams High School Football Coach Relationship Specialty Start Date End Date Lucía Nixon MD [address] [place] [phone] PCP - General Internal Medicine 12/30/22 documented as of this encounter
--- OUTSIDE RECORDS SUMMARY | 2025-05-04 19:11 | XMS_ITS | Encounter Summary ---
Author Organization [employer] Address [address] [place] [address] Care Team Providers Care Director Of Rooms Name Role Phone Lucía Nixon MD Primary Care Pro vider Encounter Details Date Type Department Care Team (Late st Contact Info) Description 05/04/2025 Orders Only GENERIC EXTERNAL DATA DEPARTMENT Provider, Generic External Data Social History Tobacco Use Types Packs/Day Years [...] Description 05/26/2025 11:15 AM EST Office Visit [facility] [address] [place] [address] [phone] Lucía Nixon MD [address] [place], [place] [phone] documented as of this encounter Procedures Procedure Name Priority Date/Time Associated Diagnosis Comments HIGH SENSITIVITY TROPONIN I Routine 05/04/2025 5:56 PM EST CBC WITH AUTO DIFFERENTIAL Routine 05/04/2025 5:56 PM EST MAGNESIUM Routine 05/04/2025 5:56 PM EST LIPASE Routine 05/04/2025 5:56 PM EST COMPREHENSIVE METABOLIC PANEL Routine 05/04/2025 5:56 PM EST documented in this encounter Results * (ABNORMAL) CBC auto differential (05/04/2025 5:56 PM EST) White Blood Count 7.1 4.8 - 10.8 X10*3/uL [facility] Red Blood Count 4.41 4.20 - 5.50 X10*6/uL [facility] Hemoglobin 13.4 12.0 - 16.0 g/dl [facility] Hematocrit 40.3 37.0 - 47.0 % [facility] Mean Corpuscular Volume 91.4 80.0 - 98.0 fL [facility] Mean Corpuscular Hemoglobin 30.4 27.0 - 33.0 pg [facility] Mean Corpuscular HGB Conc 33.3 31.0 - 35.0 g/dl [facility] Red Cell Distribution Width 13.8 11.0 - 16.0 % [facility] Platelet Count 195 160 - 400 X10*3/uL [facility] Mean Platelet Volume 11.9 9.4 - 12.3 fL [facility] Neutrophils Percent Auto 48.5 45 - 73 % [facility] Imm Gran Pct Auto 0.3 0.0 - 0.4 % [facility] Lymphocytes Percent Auto 41.6(H) 20 - 40 % [facility] Monocytes Percent Auto 6.8 2 - 11 % [facility] Eosinophils Percent Auto 2.1 0 - 4 % [facility] Basophils Percent Auto 0.7 0 - 2 % [facility] NRBC Pct Auto 0.0 0.0 - 0.2 /100WBC [facility] Neutrophils Absolute Auto 3.4 2.0 - 8.3 x10*3/uL [facility] Imm Gran Abs Auto 0.02 0.00 - 0.03 X10*3/uL [facility] Lymphocytes Absolute Auto 2.9 1.2 - 4.9 X10*3/uL [facility] Monocytes Absolute Auto 0.5 0.1 - 1.2 X10*3/uL [facility] Eosinophils Absolute Auto 0.2 0.0 - 0.4 X10*3/uL [facility] Basophils Absolute Auto 0.1 0.0 - 0.2 X10*3/uL [facility] NRBC Abs Auto 0.000 0.0 - 0.012 X10*3/uL [facility] 05/04/2025 5:56 PM EST 05/04/2025 6:01 PM EST us Generic External Data Provider LAB BLOOD ORDERAB LES Final Result [facility] [address] [place] [phone] * High Sensitivity Troponin I (05/04/2025 5:56 PM EST) Pathologist [facility] [place] TROPONIN I HIGH SENSITIVITY <2.7 <3.5 - 17.0 ng/L [facility] Comment:The Barr high sens itivity Troponin-I results should beused in conjunction with other diagnostic information suchas ECG, clinical observations and information, and patientsymptoms to aid in the diagnosis of DC. 05/04/2025 5:56 PM EST 05/04/2025 6:01 PM EST us Generic External Data Provider LAB BLOOD ORDERAB LES Final Result Performing Organization Address [facility] Co de Phone Number [facility] [address] [place] [phone] * Lipase (05/04/2025 5:56 PM EST) Pathologist [facility] Lipase 35 8 - 78 U/L [facility] 05/04/2025 5:56 PM EST 05/04/2025 6:01 PM EST us Generic External Data Provider LAB BLOOD ORDERAB LES Final Result Performing Organization Address [facility] Co de Phone Number [facility] [address] [place] [phone] * Magnesium (05/04/2025 5:56 PM EST) Pathologist [facility] Magnesium 1.9 1.6 - 2.6 mg/dL [facility] 05/04/2025 5:56 PM EST 05/04/2025 6:01 PM EST Generic External Data Provider LAB BLOOD ORDERAB LES Final Result Performing Organization Address [facility] Co de Phone Number [facility] [address] [place] [phone] * (ABNORMAL) Comprehensive Metabolic Panel (05/04/2025 5:56 PM EST) Sodium 144 135 - 145 mmol/L [facility] Potassium 3.7 3.3 - 5.1 mmol/L [facility] Chloride 109(H) 96 - 108 mmol/L [facility] Carbon Dioxide 29 22 - 29 mmol/L [facility] Anion Gap 10(L) 12 - 20 [facility] Urea Nitrogen (BUN) 18(H) 9 - 16 mg/dL [facility] Creatinine, Serum 0.61 0.5 - 1.4 mg/dL [facility] Creatinine Clr Calc Pharmacy 72.0 [facility] Comment:Provided height and weight: 144.78 cm,67.9 kg.eGFR (calculated from the MDRD study equation) and eCrCl(calculated from the Cockcroft-Gault equation) are based ondifferent parameters and may not yield comparable results.If eCrCl result is absurd, please check patient'sheight/weight. Estimated Glomerular Filt Rate >60 [facility] Comment:Chronic Kidney Disea se: Estimated GFR < 60 mL/min/[id number] Kidney Disease: Estimated GFR < 15 mL/min/1.73m2 Glucose 88 60 - 115 mg/dL [facility] Calcium 8.9 8.4 - 10.2 mg/dL [facility] Bilirubin, Total 0.5 0.0 - 1.0 mg/dL [facility] Aspartate Amino Transferase 27 5 - 31 U/L [facility] Alanine Aminotransferase 32(H) 0 - 31 U/L [facility] Total Protein 7.5 6.5 - 8.0 g/dL [facility] Albumin Level 4.4 3.5 - 5.0 g/dL [facility] Alkaline Phosphatase 62 39 - 117 U/L [facility] 05/04/2025 5:56 PM EST 05/04/2025 6:01 PM EST us Generic External Data Provider LAB BLOOD ORDERAB LES Final Result [facility] [address] [place] [phone] documented in this encounter Visit Diagnoses Not on filedocumented in this encounter Additional Health Concerns Assessment Noted Time PHQ-9 Depression Total Score: 0 12/04/19 25 1:27 PM EDT documented as of this encounter Care Teams Director Of Rooms Relationship Specialty Start Date End Date Lucía Nixon MD [address] [place] [phone] PCP - General Internal Medicine 12/30/22 documented as of this encounter
--- OUTSIDE RECORDS SUMMARY | 2025-05-04 19:11 | XMS_ITS | Encounter Summary ---
Author Organization [employer] Address [address] [place] [address] Care Team Providers Care Manipulative Therapy Specialist Name Role Phone Lucía Nixon MD Primary Care Pro vider Encounter Details Date Type Department Care Team (Latest Contact Info) Description 05/04/2025 Travel Social History Tobacco Use Types Packs/Day [...] Description 05/26/2025 11:15 AM EST Office Visit [facility] [address] [place] [phone] Lucía Nixon MD [address] [place] [phone] documented as of this encounter Visit Diagnoses Not on filedocumented in this encounter Additional Health Concerns Assessment Noted Time PHQ-9 Depression Total Score: 0 12/04/19 25 1:27 PM EDT documented as of this encounter Care Teams Manipulative Therapy Specialist Relationship Specialty Start Date End Date Lucía Nixon MD [address] [place] [address] [phone] PCP - General Internal Medicine 12/30/22 documented as of this encounter
--- OUTSIDE RECORDS SUMMARY | 2025-05-04 19:11 | XMS_ITS | Clinical Summary ---
Author Organization [employer] Address [address] [facility] 7[address] [place] [address] Care Team Providers Care Hematology Supervisor Name Role Phone Lucía Nixon MD [...] D 90 tablet 1 09/28/19 25 Active Wixela Inhub 250-50 MCG/ACT aerosol [...] MEAL. 180 tablet 2 03/02/20 25 Active loratadine (Claritin) 10 MG tablet TAKE 1 TABLET BY MOUTH EVERY DAY NEEDED 90 tablet 1 04/18/20 25 Active loratadine (Claritin) 10 MG tablet TAKE 1 TABLET BY MOUTH EVERY DAY NEEDED 90 tablet 1 10/07/19 25 025 Discontinued Hospital, Clinic, or Other Facility Administered Medication Ordered Dose Route Frequency Start Date End Date Status aspirin chewable tablet 324 mgIndications:Chest pain, unspecified type 324 mg PO Once 05/04/2025 05/04/2025 Ended Active Problems Problem Noted Date Diagnosed Date Parotid nodule 02/18/2025 Vertigo 12/03/2024 Poor memory 09/28/2024 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 Overview (03/23/2024): Established w/ [facility] (CAD) [facility]LECTRON[facility], plan for biopsy per 03/23/24 [facility]RAF[facility] (CAD) ELECTRONIC note Allergic rhinitis 01/20/2024 Osteoporosis 01/20/2024 Lower [...] new PCP or sooner PRN Crohn's disease ([facility]/HCC) 07/16/2022 Bacterial vaginosis 07/16/2022 11/30/19 Assessment & Plan [...] Encounters Date Type Department Care Team Description 05/04/2025 4:00 PM EST Office Visit [facility] [address] [place] [phone] Gustavo Francisco MD Neck pain on left side (Primary Dx); Chest pain, unspecified type 05/04/2025 Orders Only GENERIC EXTERNAL DATA DEPARTMENT Provider, Generic External Data 05/04/[address] [address] Gustavo Francisco MD 05/04/2025 Travel 04/17/2025 Refill [facility] [address] [place] [phone] Lucía Nioxn MD 03/29/[address] [address] Lucía Nixon MD Referral 03/13/2025 Orders Only GENERIC EXTERNAL DATA DEPARTMENT Provider, Generic External Data 03/04/[address] [address] Lucía Nixon MD Dec. recall 03/01/2025 Refill [facility] [address] [place] [phone] Lucía Nixon MD 02/24/[address] [address] Lucía Nixon MD [facility] (I informed the patient that an order for a [facility], was sent to the [facility] lab. She stated that she would have them done this afternoon. The results are being requested by [facility].) 02/24/2025 Orders Only [address] [address] Fiona Petit RN Screening for tuberculosis 02/18/2025 1:15 PM EDT Office Visit [address] [address] Lucía Nixon MD Parotid nodule (Primary Dx); Vertigo; Health care maintenance; Memory loss; Obesity (BMI 30-39.9); Poor memory 02/18/2025 Results Follow-Up [address] [address] Lucía Nixon MD XR CERVICAL SPINE 3V 02/18/2025 Orders Only [address] [address] Lucía Nixon MD 02/18/2025 Travel 02/17/[address] [address] Lucía Nixon MD chartprep from Last 3 Months Immunizations Immunization Administration [...] (148 lb) 05/04/2025 4:09 PM EST Height 144.8 cm (4' 9 ) 02/18/2025 1:16 PM EDT Body Mass Index 32.03 02/18/2025 1:16 PM EDT Plan of Treatment Upcoming Encounters Date Type Department Care Team (Late st Contact Info) Description 05/26/2025 11:15 AM EST Office Visit [facility] [address] [place], [place] [phone] Lucía Nixon MD [address] [place], [place] [phone] Health Maintenance Due Date Last Done Comments CT Colonography 1960 FIT DNA/Cologuard 1960 FIT 1960 FOBT 1960 Sigmoidoscopy 1960 Hepatitis A Vaccines (1 of 2 - Risk 2-dose series) 1977 RSV Patients and Patients Aged 60 years or older (1 - Risk 50-74 years 1-dose series) 2008 Hepatitis B Vaccines (1 of 3 - Risk 3-dose series) 2018 COVID-19 Vaccine ( season) 2025 Influenza Vaccine (#1) 2025 , 04/09/2019, 06/04/2018, Additional history exists Mammogram 06/14/2025 06/14/2024, 02/0 06/2023, 06/13/2023, Additional history exists Alcohol/Substance Use Screening 09/27/2025 09/27/2024 SDOH Screening 11/26/2025 11/26/2024 Depression Screening 12/03/2025 12/03/2024, 12/04/19 25 Tobacco Screening 05/04/2026 05/04/2025 HPV/Cotest 07/16/2028 Pap Smear 07/16/2028 07/16/2023, 10/09/2018 [...] Procedure Name Priority Date/Time Associated Diagnosis Comments CBC WITH AUTO DIFFERENTIAL Routine 05/04/2025 5:56 PM EST HIGH SENSITIVITY TROPONIN I Routine 05/04/2025 5:56 PM EST LIPASE Routine 05/04/2025 5:56 PM EST MAGNESIUM Routine 05/04/2025 5:56 PM EST COMPREHENSIVE METABOLIC PANEL Routine 05/04/2025 5:56 PM EST ECG 12-LEAD Routine 05/04/2025 5:09 PM EST Chest pain, unspecified type CT LUMBAR SPINE WO CONTRAST Routine 03/13/2025 10:19 PM EDT URINALYSIS, COMPLETE, WITH REFLEX TO CULTURE Routine 03/13/2025 9:35 PM EDT CULTURE, URINE, ROUTINE Routine 03/13/2025 12:00 AM EDT T-SPOT(R).TB Routine 02/24/2025 2:19 PM EDT Screening for tuberculosis XR CERVICAL SPINE 3V Routine 02/18/2025 2:27 PM EDT BI MAMMOGRAM SCREENING TOMOSYNTHESIS BILATERAL Routine 06/14/2024 [...] Recently Relevant to Health Maintenance Results * High Sensitivity Troponin I (05/04/2025 5:56 PM EST) Pathologist [facility] [place] TROPONIN I HIGH SENSITIVITY <2.7 <3.5 - 17.0 ng/L [facility] Comment:The Barr high sens itivity Troponin-I results should beused in conjunction with other diagnostic information suchas ECG, clinical observations and information, and patientsymptoms to aid in the diagnosis of [place]. 05/04/2025 5:56 PM EST 05/04/2025 6:01 PM EST us Generic External Data Provider LAB BLOOD ORDERAB LES Final Result [facility] [address] [place] [phone] * (ABNORMAL) CBC auto differential (05/04/2025 5:56 PM EST) White Blood Count 7.1 4.8 - 10.8 X10*3/uL [facility] Red Blood Count 4.41 4.20 - 5.50 X10*6/uL [facility] Hemoglobin 13.4 12.0 - 16.0 g/dl [facility] Hematocrit 40.3 37.0 - 47.0 % [facility] Mean Corpuscular Volume 91.4 80.0 - 98.0 fL [facility] Mean Corpuscular Hemoglobin 30.4 27.0 - 33.0 pg [facility] Mean Corpuscular HGB Conc 33.3 31.0 - 35.0 g/dl [facility] Red Cell Distribution Width 13.8 11.0 - 16.0 % [facility] Platelet Count 195 160 - 400 X10*3/uL [facility] Mean Platelet Volume 11.9 9.4 - 12.3 fL [facility] Neutrophils Percent Auto 48.5 45 - 73 % [facility] Imm Gran Pct Auto 0.3 0.0 - 0.4 % [facility] Lymphocytes Percent Auto 41.6(H) 20 - 40 % [facility] Monocytes Percent Auto 6.8 2 - 11 % [facility] Eosinophils Percent Auto 2.1 0 - 4 % [facility] Basophils Percent Auto 0.7 0 - 2 % [facility] NRBC Pct Auto 0.0 0.0 - 0.2 /100WBC [facility] Neutrophils Absolute Auto 3.4 2.0 - 8.3 x10*3/uL [facility] Imm Gran Abs Auto 0.02 0.00 - 0.03 X10*3/uL [facility] Lymphocytes Absolute Auto 2.9 1.2 - 4.9 X10*3/uL [facility] Monocytes Absolute Auto 0.5 0.1 - 1.2 X10*3/uL [facility] Eosinophils Absolute Auto 0.2 0.0 - 0.4 X10*3/uL [facility] Basophils Absolute Auto 0.1 0.0 - 0.2 X10*3/uL [facility] NRBC Abs Auto 0.000 0.0 - 0.012 X10*3/uL [facility] 05/04/2025 5:56 PM EST 05/04/2025 6:01 PM EST us Generic External Data Provider LAB BLOOD ORDERAB LES Final Result Performing Organization Address [facility] Co de Phone Number [facility] [address] [place] [phone] * Magnesium (05/04/2025 5:56 PM EST) Magnesium 1.9 1.6 - 2.6 mg/dL [facility] 05/04/2025 5:56 PM EST 05/04/2025 6:01 PM EST us Generic External Data Provider LAB BLOOD ORDERAB LES Final Result Performing Organization Address [facility] Co de Phone Number [facility] [address] [place] [phone] * Lipase (05/04/2025 5:56 PM EST) Pathologist [facility] [place] Lipase 35 8 - 78 U/L [facility] 05/04/2025 5:56 PM EST 05/04/2025 6:01 PM EST Generic External Data Provider LAB BLOOD ORDERAB LES Final Result Performing Organization Address [facility] de Phone Number [facility] [address] [place] [phone] * (ABNORMAL) Comprehensive Metabolic Panel (05/04/2025 5:56 PM EST) Sodium 144 135 - 145 mmol/L [facility] Potassium 3.7 3.3 - 5.1 mmol/L [facility] Chloride 109(H) 96 - 108 mmol/L [facility] Carbon Dioxide 29 22 - 29 mmol/L [facility] Anion Gap 10(L) 12 - 20 [facility] Urea Nitrogen (BUN) 18(H) 9 - 16 mg/dL [facility] Creatinine, Serum 0.61 0.5 - 1.4 mg/dL [facility] Creatinine Clr Calc Pharmacy 72.0 [facility] Comment:Provided height and weight: 144.78 cm,67.9 kg.eGFR (calculated from the MDRD study equation) and eCrCl(calculated from the Cockcroft-Gault equation) are based ondifferent parameters and may not yield comparable results.If eCrCl result is absurd, please check patient'sheight/weight. Estimated Glomerular Filt Rate >60 [facility] Comment:Chronic Kidney Disea se: Estimated GFR < 60 mL/min/1.78g1Hlvtuz Kidney Disease: Estimated GFR < 15 mL/min/1.73m2 Glucose 88 60 - 115 mg/dL [facility] Calcium 8.9 8.4 - 10.2 mg/dL [facility] Bilirubin, Total 0.5 0.0 - 1.0 mg/dL [facility] Aspartate Amino Transferase 27 5 - 31 U/L [facility] Alanine Aminotransferase 32(H) 0 - 31 U/L [facility] Total Protein 7.5 6.5 - 8.0 g/dL [facility] Albumin Level 4.4 3.5 - 5.0 g/dL [facility] Alkaline Phosphatase 62 39 - 117 U/L [facility] 05/04/2025 5:56 PM EST 05/04/2025 6:01 PM EST us Generic External Data Provider LAB BLOOD ORDERAB LES Final Result [facility] [address] [place] [phone] [phone] * CT Lumbar Spine w/o Contrast (03/13/2025 10:19 PM EDT) Anatomical Region Laterality Modality Spine, L-spine Computed Tomogra phy 03/13/2025 10:1 9 PM EDT Narrative 03/13/2025 10:21 PM EDT [address] [address] [address] Scan Report Signed Patient: Cheli Wilks MR#: [id number] 971 : 1960 Acct:[id number] Age/Sex: 64 / F ADM Date: 03/13/25 Loc: HO.ED Attending Dr: Ordering Physician: Martha Rice Date of Service: 03/13/25 Procedure(s): CT lumbar spine wo IV con Accession Number(s): [id number] cc: Martha Rice; Lucía Nixon MD Report Number: [id number]: Total DLP = 431.00 mGy-cm Reason for Exam: pain/compression fx? CLINICAL HISTORY: pain compression fx? CT Lumbar Spine WO Contrast COMPARISON: CR - XR LUMBAR SPINE 2-3V - 09/30/24 11:04 EDT FINDINGS: No acute fracture or malalignment. Degenerative changes in the spine. Left renal cyst. Diffusely hypodense liver consistent with hepatic steatosis. Colonic diverticulosis without evidence of acute diverticulitis. Unremarkable soft tissues. IMPRESSION: No acute findings. Nonemergent/incidental findings above. This document has been electronically signed by: Ellis Taylor MD on 03/13/2025 22:19:42 Dictated By: Ellis Taylor MD Signed By: <Electronically signed by Ellis Taylor MD in OV> 03/13/252219 DD/ 18 TD/TT: 03/13/252218 Testing And Regulating Technician: Procedure Note Donotuseinterpreter, Image - 03/13/[address] [address] [address] Scan Report Signed Patient: Teresa WilksR#: [id number] 971 : 1960cct:[id number] Age/Sex: 64 / FADM Date: 03/13/25 Loc: HO.ED Attending Dr: Ordering Physician: Martha Rice Date of Service: 03/13/25 Procedure(s): CT lumbar spine wo IV con Accession Number(s): [id number] cc: Martha Rice; Lucía Nixon MD Report Number: [id number]: Total DLP = 431.00 mGy-cm Reason for Exam: pain/compression fx? CLINICAL HISTORY: pain compression fx? CT Lumbar Spine WO Contrast COMPARISON: CR - XR LUMBAR SPINE 2-3V - 09/30/24 11:04 EDT FINDINGS: No acute fracture or malalignment. Degenerative changes in the spine. Left renal cyst. Diffusely hypodense liver consistent with hepatic steatosis. Colonic diverticulosis without evidence of acute diverticulitis. Unremarkable soft tissues. IMPRESSION: No acute findings. Nonemergent/incidental findings above. This document has been electronically signed by: Ellis Taylor MD on 03/13/2025 22:19:42 Dictated By: Ellis Taylor MD Signed By: <Electronically signed by Ellis Taylor MD in OV> 03/13/252219 DD/ 18 TD/TT: 03/13/252218 Testing And Regulating Technician: [facility] External Provider IMG CT PROCEDURES Edited Result - Final * (ABNORMAL) Urinalysis, Complete, with Reflex to Culture (03/13/2025 9:35 PM EDT) Color Urine Yellow [facility] Appearance Urine Cloudy [facility] PH 6.0 5.0 - 9.0 [facility] Glucose Urine UA Negative Negative mg/dL [facility] Urine Blood Small (1+)(A) Negative [facility] Specific [place] - Urine 1.020 1.005 - 1.025 [facility] Urine Protein Trace Neg-Trace mg/dL [facility] Urine Ketones Trace Negative mg/dL [facility] Nitrite Urine Negative Negative [facility] Leukocyte Esterase Urine Small (1+)(A) Negative [facility] RBC Urine 3-5(A) 0 - 2 /HPF [facility] Urine WBC 6-10 0 - 5 /HPF [facility] Urine Squamous Epithelial Cell 6-10 0 - 2 /HPF [facility] Urine Bacteria 1+ None Seen [facility] Hyaline Casts, Urine 0-2 0 - 2 /LPF [facility] 03/13/2025 9:35 PM EDT 03/13/2025 9:42 PM EDT [facility] - 03/13/2025 10:00 PM EDT Urine, Clean Catch Generic External Data Provider LAB URINE ORDERAB LES Final Result Performing Organization Address City/[facility]/ZIP Co de Phone Number [facility] [address] [place] [phone] * Culture, Urine, Routine (03/13/2025 12:00 AM EDT) Urine Urine specimen obtained by clean catch procedure / Unknown 03/13/2025 03/13/2025 Comment:[facility] - 03/15/2025 11:38 AM EDT Urine Culture Report Result Urine Culture 10,000 to 50,000 cfu/ml Urine Culture Mixed bacterial malinda characteristic of Urine Culture urogenital contamination. Specimen Source: Urine clean catch Generic External Data Provider LAB MICROBIOLOGY - GENERAL ORDERABLES Final Result Performing Organization Address [facility] Co de Phone Number [facility] [address] [place] [phone] * T-SPOT??.TB (02/24/2025 2:19 PM EDT) T Spot TB Negative Negative [facility] Comment:A negative test resu lt [...] as aquantitative test. TS PANEL A 0 [facility] TS PANEL B 0 [facility] Negative Control Passed [facility] Positive Control Passed [facility] Comment:For additional infor antonio, please refer tohttp://education.BeckonCall/faq/WPK477(This link is being provided for informational/educational purposes only.)THIS TEST WAS PERFORMED AT:[employer] [id number] [place] [phone] DAVIS MD,PHD 02/24/2025 2:19 PM EDT 02/24/2025 4:03 PM EDT Lucía Good MD LAB BLOOD ORDERAB LES Final Result Performing Organization Address City/State/[facility] Co de Phone Number [facility] [address] [place] [phone] * XR CERVICAL SPINE 3V (02/18/2025 2:27 PM EDT) Anatomical Region Laterality Modality Abdomen Radiographic Asya ging 02/18/2025 2:27 PM EDT Narrative 02/18/2025 3:24 PM EDT [address] [address] XRay Report Signed Patient: Cheli Wilks MR#: [id number] 971 : 1960 Acct:[id number] Age/Sex: 64 / F ADM Date: 02/18/25 Loc: .HHCX Attending Dr: Lucía Good MD Ordering Physician: Lucía Nixon MD Date of Service: 02/18/25 Procedure(s): XR cervical spine 3V Accession Number(s): [id number] cc: Lucía Nixon MD EXAMINATION: XR CERVICAL [...] 02/18/25 1520 DD/ 1427 TD/TT: 02/18/25 1500 Testing And Regulating Technician: Procedure Note Donotuseinterpreter, Image - 02/18/[address] [address] XRay Report Signed Patient: Edy Wilks#: [id number] 971 : 8Acct:[id number] Age/Sex: 64 / FADM Date: 02/18/25 Loc: .HHCX Attending Dr: Lucía Good MD Ordering Physician: Lucía Nixon MD Date of Service: 02/18/25 Procedure(s): XR cervical spine 3V Accession Number(s): [id number] cc: Lucía Nixon MD EXAMINATION: XR CERVICAL [...] 02/18/25 1520 DD/ 1427 TD/TT: 02/18/25 1500 Testing And Regulating Technician: Lucía Good MD IMG XR PROCEDURES Final Result * BI Mammogram Screening Tomosynthesis Bilateral (06/14/2024 2:30 PM EST) Anatomical Region Laterality Modality Breast Bilateral Mammography 06/14/2024 2:30 PM EST Narrative 06/28/2024 1:33 PM EST [facility] [address] [place] [address] Mammography Report Signed Patient: Cheli Wilks MR#: [id number] 971 : 1960 Acct:[id number] Age/Sex: 63 / F ADM Date: 06/14/24 Loc: .MAMMO Attending Dr: Lcuía Good MD Ordering Physician: Lucía Nixon MD Re sults: 1Negative Date of Service: 06/14/24 Follow Up: 1 Year From [facility] in[facility] Mammogram Procedure(s): MM tomosynthesis screening BI Accession Number(s): [id number] cc: Lucía Nixon MD EXAMINATION: MM SCREENING [...] 06/28/24 1330 DD/ 1430 TD/TT: 06/14/24 1450 Testing And Regulating Technician: Procedure Note Donotuseinterpreter, Image - 06/28/2024 [facility] [address] [place], [place] [address] Mammography Report Signed Patient: Teresa WilksR#: [id number] 971 : 8Acct:[id number] Age/Sex: 63 / FADM Date: 06/14/24 Loc: HO.MAMMO Attending Dr: Lucía Good MD Ordering Physician: Lucía Nixon sults: 1Negative Date of Service: 06/14/24Follow Up: 1 Year From Orig inal Mammogram Procedure(s): MM tomosynthesis screening BI Accession Number(s): [id number] cc: Lucía Nixon MD EXAMINATION: MM SCREENING [...] 06/28/24 1330 DD/ 1430 TD/TT: 06/14/24 1450 Testing And Regulating Technician: us Lucía Good MD IMG BI PROCEDURES Edited Result - Final * Lipid Panel, Standard (01/15/2024 8:56 AM EDT) Triglycerides 79 <150 mg/dL [facility] Comment:Desirable Triglyceri de: less than 150 mg/dLBorderline High Triglyceride 150-199 mg/dLHigh Triglyceride: 200-499 mg/dLVery High Triglyceride: greater than or equal to 5OO mg/dL Cholesterol 162 <200 mg/dL [facility] Comment:Desirable Cholestero l: less than 200 mg/dLBorderline High Cholesterol: 200-239 mg/dLHigh Cholesterol: greater than 239 mg/dL LDL Cholesterol Calculated 98 <100 mg/dL [facility] Comment:Desirable LDL: less than 100 [...] LES Final Result Performing Organization Address [facility] Co de Phone Number [facility] [address] [place] [phone] * Hepatitis C Antibody with Reflex to HCV, RNA, Quantitative, Real-Time PCR (01/15/2024 8:46 AM EDT) Hepatitis C Antibody Nonreactive Nonreactive [facility] Comment:Antibodies to HCV no t detected; does not exclude early acuteHCV infection. Blood Venous blood specimen / Unknown 01/15/2024 8:46 AM EDT 01/15/2024 11:14 AM EDT Lucía Good MD LAB BLOOD ORDERAB LES Final Result Performing Organization Address [facility] Co de Phone Number [facility] [address] [place] [phone] * Pap Smear (07/16/2023 3:14 PM EST) 07/16/2023 3:14 PM EST 07/17/2023 8:00 AM EST Narrative [facility] - 08/01/2023 3:14 PM EST ----- ------- Name: EfeErynCheli Age/Sex: 63/F : 1960 Unit#: [id number] Attend Dr: Kanwal Horta Rikki Re07/16/23 Status: DEP REF Location: [facility] Disch: ----- ------- SPEC : [id number] RECD: 07/17/23 STATUS: CHRISTELLE MCKNIGHT NUM: [id number] SHIRA: 07/16/23-1513 [facility] DR: Kanwal Horta [facility] ENTERED: 07/17/23110 SP TYPE: Pap Smr OTHR DR: Alta Martinez ORDERED: Pap Smear Interpretation Satisfactory for evaluation. Negative for intraepithelial lesion or malignancy. HPV mRNA E6/E7: NOT DETECTED This assay detects E6/E7 viral messenger RNA (mRNA) from 14 high-risk HPV types (16, 18, 31, 33, 35, 39, 45, 51, 52, 56, 58, 59, 66, 68) HPV testing performed by [employer], [place], [place]. See reference laboratory portion of the EMR for entire report. Clinical Information LMP: Postmenopausal Previous PAP test: 2019, WNL Material Received ThinPrep-Cervical Copies To: Kanwal Horta[address] [place] [address] Alta Martinez [facility] [address] [place] [address] ----- ------- Signed (signature on file) ZAIN Ochoa (ASC) 08/01/23 1514 ----- ------- END OF REPORT Generic External Data Provider LAB CYTOLOGY ORDE RABLES Final Result [facility] [address] [place] [phone] * Colonoscopy (02/26/2019 12:21 PM EDT) Historical Provider HEALTH MAINTENANCE Final Result from Last 3 Months or Most Recently Relevant to Health Maintenance Insurance [facility] OPTIONS (HMO D-SNP) BILL [place] [id number] Care Teams Hematology Supervisor Relationship Specialty Start Date End Date Lucía Nxion MD [address] [place] [address] PCP - General Internal Medicine 12/30/22
--- OUTSIDE RECORDS SUMMARY | 2025-05-04 19:11 | XMS_ITS | Encounter Summary ---
Author Organization [employer] Address [address] [place] [address] Care Team Providers Care Quality Management Coordinator Name Role Phone Alta Martinez [employer]ENER Primary Care Provider Lucía Belle MD Primary Care Pro vider Reason for Visit * Reason Onset Date Comments call back 07/29/2022 Encounter Details Date Type Department Care Team (Late Contact Info) Description 07/29/2022 Telephone [facility] [address] [place] [address] Alta Martinez FNP call back Social History [...] Description 05/26/2025 11:15 AM EST Office Visit [facility] [address] [place] [address] Lucía Nixon MD [address] [place], [place] [phone] documented as of this encounter Visit Diagnoses Not on filedocumented in this encounter Care Teams Quality Management Coordinator Relationship Specialty Start Date End Date Alta Martinez FNP PCP - General Family Medicine 02/14/22 12/29/22 Lucía Nixon MD [address] [place], [place] [phone] PCP - General Internal Medicine 12/30/22 documented as of this encounter
--- OUTSIDE RECORDS SUMMARY | 2025-05-04 19:11 | XMS_ITS | Encounter Summary ---
Author Organization [employer] Address [address] [place] [address] Care Team Providers Care [employer]ator [employer] Name Role Phone Lucía Nixon MD Primary Care Pro vider Encounter Details Date Type Department Care Team ([facility] st Contact Info) Description 05/04/2025 Telephone [facility] [address] [place], [place] [phone] Gustavo Francisco MD [address] [place], [place] [phone] Social History Tobacco Use Types Packs/Day Years [...] Telephone Encounter - Heena Jaimes RN - 05/04/2025 5:20 PM EST Called and gave expect to Apurva at [facility] ED per Dr. Francisco, pt coming by private car. documented in this encounter Plan of Treatment Upcoming Encounters Date Type Department Care Team (Late st Contact Info) Description 05/26/2025 11:15 AM EST Office Visit [facility] [address] [place] [phone] Lucía Nixon MD [address] [place] [phone] documented as of this encounter Visit Diagnoses Not on filedocumented in this encounter Additional Health Concerns Assessment Noted Time PHQ-9 Depression Total Score: 0 12/04/19 25 1:27 PM EDT documented as of this encounter Care Teams [employer] Relationship Specialty Start Date End Date Lucía Nixon MD [address] [place] [phone] PCP - General Internal Medicine 12/30/22 documented as of this encounter
--- OUTSIDE RECORDS SUMMARY | 2025-05-04 19:11 | XMS_ITS | Encounter Summary ---
Author Organization [employer] Address [address] [place] [address] [address] [place] [address] Care Team Providers Care Tobacco Farmworker Name Role Phone Lucía Nixon MD Primary Care Pro vider Encounter Details Date Type Department Care Team ([facility] Contact Info) Description 01/01/2023 Abstract [facility] [address] [place] [address] [phone] Lucía Nioxn MD [address] [place], [place] [phone] Social History Tobacco Use Types Packs/Day Years [...] EST Office Visit [facility] [address] [place] [address] [phone] Lucía Nixon MD [address] [place] [address] documented as of this encounter Procedures Procedure Name Priority Date/Time Associated Diagnosis Comments HM PAP/HPV Routine 10/09/2018 12:00 AM EDT documented in this encounter Results * Hm Pap Smear (10/09/2018 12:00 AM EDT) us Historical Provider HEALTH MAINTENANCE Final Result [facility] [address] [place] [address] [phone] documented in this encounter Visit Diagnoses Not on filedocumented in this encounter Additional Health Concerns Assessment Noted Time PHQ-9 Depression Total Score: 0 11/30/19 23 2:40 PM EDT documented as of this encounter Care Teams Tobacco Farmworker Relationship Specialty Start Date End Date Lucía Nixon MD [address] [place] [phone] PCP - General Internal Medicine 12/30/22 documented as of this encounter
[2025-05-04 19:28] VITALS: BP 112/52; PULSE 74; RESP 12; TEMP 36.8; O2SAT 96
[2025-05-04 20:14] LABS: NT Pro B Type Natriuretic Pept 26.6 pg/mL (<300)
[2025-05-04 20:19] LABS: Troponin-I High Sensitivity < 2.7 ng/L (<3.5-17.0)
[2025-05-04 21:53] VITALS: BP 117/64; PULSE 70; RESP 12; TEMP 36.7; O2SAT 96
[2025-05-04 22:30] VITALS: BP 117/64; PULSE 70; RESP 12; TEMP 36.7; O2SAT 96
== END 2025-05-04 22:30 | disposition home or self-care (01) ==
PROVIDERS: Physician Assistant Medical; Emergency Provider Emergency Medicine; PCP Student in an Organized Health Care Education/Training Program
DX: R07.9 Chest pain, unspecified (principal); M25.512 Pain in left shoulder; J44.9 Chronic obstructive pulmonary disease, unspecified; Z88.5 Allergy status to narcotic agent
CPT/HCPCS: 36415; 71046; 80053; 83690; 83735; 83880; 84484; 85025; 93005; 96372; 99284; J1885

== ENCOUNTER → 2025-05-04 17:41 | Outpatient (BNV) | payer OTHER, SELFPAY | PROVIDERS: Emergency Provider Emergency Medicine; PCP Student in an Organized Health Care Education/Training Program; Visit Provider Internal Medicine Cardiovascular Disease | DX: R07.9 Chest pain, unspecified (principal) | CPT/HCPCS: 93010 ==

== ENCOUNTER → 2025-05-04 19:25 | Outpatient (BNV) | payer OTHER, SELFPAY | PROVIDERS: Emergency Provider Emergency Medicine; PCP Student in an Organized Health Care Education/Training Program; Visit Provider Student in an Organized Health Care Education/Training Program | DX: R07.9 Chest pain, unspecified (principal) | CPT/HCPCS: 71046 ==